=== PATIENT | female | born 1955 | race Caucasian/White ===

== ENCOUNTER → 2016-07-09 | Outpatient (CLI) | payer BC, OTHER ==
--- NOTE | 2016-07-09 09:02 | US ---
EXAMINATION TYPE: US carotid duplex BILAT DATE OF EXAM: 07/09/2016 8:48 AM COMPARISON: In pacs CLINICAL HISTORY: Bruit, frequent headaches, left sided weakness. EXAM MEASUREMENTS: RIGHT: Peak Systolic Velocity (PSV) cm/sec ----- Right CCA: 75.4 ----- Right ICA: 135.0 ----- Right ECA: 76.3 ICA/CCA ratio: 1.8 RIGHT: End Diastole cm/sec ----- Right CCA: 20.4 ----- Right ICA: 38.8 ----- Right ECA: 14.2 LEFT: Peak Systolic Velocity (PSV) cm/sec ----- Left CCA: 89.7 ----- Left ICA: 112.1 ----- Left ECA: 114.9 ICA/CCA ratio: 1.2 LEFT: End Diastole cm/sec ----- Left CCA: 25.9 ----- Left ICA: 40.3 ----- Left ECA: 12.1 VERTEBRALS (direction of flow): Right Vertebral: Antegrade Left Vertebral: Antegrade Findings: Bilateral intimal thickening, minimal plaque bilateral bulb Elevated velocities: right mid and distal ICA No significant stenosis Left neck: 2.4 x 0.9 x 1.6cm hypoechoic vascular area, probable lymph node IMPRESSION: 1. No significant hemodynamic stenosis 2. Mild bilateral plaque 3. 2.4 x 0.9 cm soft tissue nodule within the left neck is most likely related to a lymph node. Criteria for Assigning % of Stenosis / Diameter reduction (Estimation based on the indirect measurements of the internal carotid artery velocities (ICA PSV). 1. Normal (no stenosis)=ICA PSV < 125 cm/s: ratio < 2.0: ICA EDV<40 cm/s. 2. Less than 50% stenosis=ICA PSV < 125 cm/s: ratio < 2.0: ICA EDV<40 cm/s. 3. 50 to 69% stenosis=ICA PSV of 125 to 230 cm/s: ration 2.0 ? 4.0: ICA EDV 40-100 cm/s. 4. Greater than 70% stenosis to near occlusion= ICA PSV > 230 cm/s: ratio > 4.0: ICA EDV > 100 cm/s. 5. Near occlusion= ICA PSV velocities may be low or undetectable: variable ratio and ICA EDV. 6. Total occlusion=unable to detect flow.
== END | disposition home or self-care (01) ==
LOC: RADUSWWP 08:24
PROVIDERS: ATTEND Family Medicine
DX: I65.23 Occlusion and stenosis of bilateral carotid arteries (principal)
CPT/HCPCS: 93880

== ENCOUNTER → 2016-07-27 | Outpatient (CLI) | payer BC, OTHER ==
--- NOTE | 2016-07-27 15:34 | CT ---
EXAMINATION TYPE: CT abdomen pelvis w con DATE OF EXAM: 07/27/2016 2:59 PM COMPARISON: 07/06/2012 HISTORY: 60 year-old female periumbilical pain and history of small bowel obstructions. TECHNIQUE: Contiguous axial scanning of the abdomen and pelvis following administration of 100 ml Omn ipaque 300 IV contrast. Delayed images through the kidneys and coronal/sagittal reconstructions perf ormed. CT DLP: 324.3 mGycm Automated exposure control for dose reduction was used. FINDINGS: Heart is normal size without pericardial effusion. Lung bases are clear without pleural effusion. Con tinued circumferential wall thickening of the distal esophagus No focal liver lesion. Bile duct measures 8 mm, similar to the prior exam with normal distal tapering . Portal venous system is patent. Gallbladder, adrenal glands, spleen, and pancreas appear within normal limits. Similar cortical defec t medial upper pole right kidney suggests prior infectious or vascular insult. A subcentimeter hypode nsity lateral mid left kidney too small for accurate CT characterization, likely a cyst. Previously mentioned left adrenal gland mass now has the appearance of a posterior gastric fundal div erticulum as there is some air within and mucosal enhancement. No dilated small bowel, free fluid, or free air. Moderate atelectatic changes within the abdominal aorta with a fusiform dilatation of the infrarenal abdominal aorta up to 2.0 cm. No aneurysm. Oral contrast has progressed to the junction of the descending and sigmoid colon. There is some circumferential wall thickening involving the mid to distal sigmoid colon. No mesenteric or retroperitoneal lymphadenopathy seen. Tiny fatty umbilical hernia. The bladder is partially urine distended. Uterus surgically absent. Neither ovary is visualized. No a bnormal fluid collection in the pelvis or pelvic lymphadenopathy seen. Bones: Degenerative changes lower lumbar spine. No osseous destructive process. IMPRESSION: 1. CIRCUMFERENTIAL WALL THICKENING OF THE DISTAL ESOPHAGUS SUGGESTIVE OF ESOPHAGITIS. 2. SOME CIRCUMFERENTIAL WALL THICKENING OF THE MID TO DISTAL SIGMOID COLON MAY REPRESENT A MILD COLIT IS. CORRELATE WITH COLONOSCOPY IF NO ROUTINE SCREENING HAS BEEN PERFORMED.
== END | disposition home or self-care (01) ==
LOC: RADCTMAIN 14:34
PROVIDERS: ATTEND Family Medicine
DX: K22.8 Other specified diseases of esophagus (principal); K63.89 Other specified diseases of intestine; R10.33 Periumbilical pain
CPT/HCPCS: 74177; Q9967

== ENCOUNTER 2016-09-30 08:44 | Day surgery (SDC) | payer BC, OTHER ==
[2016-09-28 09:00] VITALS: BMI 20.5
[~2016-09-30 08:44] MED LIST: LACTATED RINGERS 1,000 ML IV SCH
[2016-09-30 09:54] VITALS: RESP 16; TEMP 97.7
[2016-09-30] MEDS ORDERED: LIDOCAINE 1% INJ 10MG/ML (20 ML MDV) ONE (09:59)
[2016-09-30] MEDS ORDERED: PROPOFOL 10 MG/ML 20 ML VIAL IV ONE (09:59)
--- NOTE | 2016-09-30 10:46 | P.PCN ---
Date of Procedure: 09/30/16 Procedure(s) Performed: Procedure: 1. Esophagogastroduodenoscopy and biopsy. 2. Colonoscopy and biopsy. Preoperative diagnosis: History of reflux and inflammatory bowel disease with dysphagia and loose stools. Postoperative diagnosis: 1. Mild gastritis with no obvious hiatal hernia, esophagitis or complicated reflux disease. 2. Normal colon and terminal ileum. 3. Multiple biopsies obtained from the duodenum, antrum, esophagus, terminal ileum and right colon. Preparation: HalfLytely prep. Sedation: Was provided by anesthesia. Brief clinical history: The patient is a 60-year-old female with history of colitis/Crohn's since 2002. She has been following up with Dr. Jamison who has performed her colonoscopies in the past. She had an upper endoscopy with me in March 2008 for intermittent dysphagia and that showed mild gastritis and the biopsies of the esophagus showed features suggestive of chronic esophagitis. The patient apparently has been doing well for many years on no medications for her IBD. She was evaluated earlier this month in our office, referred because of recurrence of loose stools and dysphagia. She was started on Pentasa prior to her referral and was also taking Protonix. I scheduled this evaluation to assess for complicated reflux disease and to assess for active inflammatory bowel disease. Procedure: With the patient on her left lateral decubitus position and after informed consent and adequate sedation, I passed the Olympus-GIF 160 video upper endoscope through the cricopharyngeus down the esophagus. The esophagus appeared healthy with no obvious erosions, ulcers, strictures or Lawson's esophagus. GE junction was around 40 cm from the incisors and there was no definite hiatal hernia. The esophagus was showing sustained contractions while I was advancing the endoscope raising, in my mind, the possibility of motility disorder. The stomach was then insufflated with air and inspected in detail including the retroflex view in the cardia. There was some mottling and erythema in the antrum but no ulcers or erosions. Pyloric channel, duodenal bulb, post bulbar area and descending duodenum appeared within normal limits. Because of her symptoms I obtained multiple biopsies from the duodenum, antrum and esophagus then the endoscope was withdrawn and I proceeded with the colonoscopy. Perianal area did not show any fissures or fistulas. There were no masses felt on digital rectal examination. The Olympus CFQ 160L video colonoscope was then inserted in the rectum in the usual fashion and advanced to the cecum. I intubated the ileocecal valve and examined the terminal ileum as well as. Terminal ileum and colon appeared healthy with no edema, erythema, friability, ulceration, exudation or spontaneous bleeding. No polyps or tumors were seen or any obvious diverticular disease or other pathology. I obtained biopsies from the terminal ileum and right colon then I retroflexed endoscope in the rectum before the endoscope was withdrawn. The patient tolerated the procedure well. Plan: The patient was reassured. Will await pathology results. I would consider further evaluation for possible motility disorder regarding her dysphagia symptoms. If the biopsies do not show any evidence of inflammatory bowel disease, we will treat her loose stools symptomatically or with anti- spasmodic and make further plans based on her course. I will keep you updated on her progress. She will follow-up with you as planned.
[2016-09-30 11:08] VITALS: BP 111/40; PULSE 60
== END 2016-09-30 11:12 | disposition home or self-care (01) ==
LOC: ORWHC2ENDO 08:44
DX: K21.0 Gastro-esophageal reflux disease with esophagitis (principal); K29.50 Unspecified chronic gastritis without bleeding; R19.7 Diarrhea, unspecified; K63.89 Other specified diseases of intestine; Z87.19 Personal history of other diseases of the digestive system; I10 Essential (primary) hypertension; Z79.899 Other long term (current) drug therapy; Z88.8 Allergy status to other drugs, medicaments and biological substances
CPT/HCPCS: 88305; 88342; 45380; 43239; J2001; J2704

== ENCOUNTER → 2016-10-19 | Outpatient (CLI) | payer BC, OTHER ==
--- NOTE | 2016-10-19 09:44 | MM ---
Reason for exam: additional evaluation requested from prior study. Last mammogram was performed 1 year ago. History: Patient is postmenopausal. Family history of breast cancer in maternal cousin at age 51, breast cancer in maternal cousin, and breast cancer in maternal aunt. Excisional biopsy of the right breast, October 2005. Taking estrogen for 33 years 3 months beginning at age 22. Physical Findings: Nurse did not find any significant physical abnormalities on exam. MG Diagnostic Mammo w CAD LENO Bilateral CC and MLO view(s) were taken. Prior study comparison: October 09, 2015, bilateral MG screening mammo w CAD. April 24, 2014, bilateral MG diagnostic mammo w CAD LEON. The breast tissue is heterogeneously dense. This may lower the sensitivity of mammography. Finding: There is a 12 x 10 mm equal density (isodense), circumscribed oval mass located 6 cm from the nipple in the upper outer quadrant of the right breast, cystic on ultrasound. New finding since October 09, 2015 and April 24, 2014. These results were verbally communicated with the patient and result sheet given to the patient on 10/19/16. ASSESSMENT: Benign, BI-RAD 2 RECOMMENDATION: Routine screening mammogram of both breasts in 1 year.
--- NOTE | 2016-10-19 09:45 | USB ---
Reason for exam: additional evaluation requested from prior study. History: Patient is postmenopausal. Family history of breast cancer in maternal cousin at age 51, breast cancer in maternal cousin, and breast cancer in maternal aunt. Excisional biopsy of the right breast, October 2005. Taking estrogen for 33 years 3 months beginning at age 22. US Breast RT Right breast ultrasound includes all four quadrants, the retroareolar region and axilla. Finding demonstrates a 1.1 x 0.9 x 1.6cm oval, cystic lesion at 10 o'clock, seen on previous, enlarged but benign. These results were verbally communicated with the patient and result sheet given to the patient on 10/19/16. ASSESSMENT: Benign, BI-RAD 2 RECOMMENDATION: Routine screening mammogram of both breasts in 1 year.
== END | disposition home or self-care (01) ==
LOC: RADMAMWWP 08:14
PROVIDERS: ATTEND Family Medicine
DX: R92.8 Other abnormal and inconclusive findings on diagnostic imaging of breast (principal)
CPT/HCPCS: 76641; G0204

== ENCOUNTER 2017-09-04 03:58 | Emergency (ER) | payer BC, OTHER ==
[2017-09-04] MEDS ORDERED: MORPHINE SULFATE 4 MG/ML SYRINGE IV STA (04:11)
[2017-09-04] MEDS ORDERED: ONDANSETRON 4 MG/2 ML VIAL IVP STA (04:11)
[2017-09-04] MEDS ORDERED: RX INFO: IV CONTRAST WAS GIVEN 1 EACH MISC MISCELLANE PRN (04:11)
[2017-09-04] MEDS ORDERED: SODIUM CHLORIDE 0.9% 1,000 ML IV STA (04:11)
[2017-09-04 04:13] VITALS: RESP 18
--- NOTE | 2017-09-04 04:18 | ED ---
General Adult HPI - General Chief complaint: Abdominal Pain Stated complaint: Abdominal Pain Time Seen by Provider: 09/04/17 04:00 Source: patient, RN notes reviewed Mode of arrival: ambulatory Limitations: no limitations - History of Present Illness Initial comments: This is a 61-year-old female who presents emergency Department with a past medical history significant for diverticulitis. Her doctor was treating her for diverticulitis with Cipro and Flagyl and is been ongoing for the past 10 days. Patient states few hours ago she woke up in excruciating abdominal pain and it seems to be more diffuse than it has been in the past. Patient states she's nauseated and vomited times one. Patient states she also been having some loose stool over the last 3 days. Patient denies any dysuria hematuria or urinary frequency. Patient denies any back pain. - Related Data Home Medications Medication Instructions Recorded Confirmed Enalapril [Vasotec] 10 mg PO DAILY 09/28/16 09/30/16 Estrogens, Conjugated [Premarin] 1.25 mg PO DAILY 09/28/16 09/30/16 Levocetirizine Dihydrochloride 5 mg PO DAILY 09/28/16 09/30/16 [Xyzal] Mesalamine [Pentasa] 500 mg PO TID 09/28/16 09/30/16 Metoprolol Tartrate [Lopressor] 12.5 mg PO QAM 09/28/16 09/30/16 Mometasone/Formoterol [Dulera 200 2 puff INHALATION BID PRN 09/28/16 09/30/16 Mcg/5 Mcg Inhaler] Pantoprazole Sodium 40 mg PO DAILY 09/28/16 09/30/16 Allergies Allergy/AdvReac Type Severity Reaction Status Date / Time [id number]-Ard Reductase Allergy muscle pain Verified 09/04/17 04:13 Inhibitor Review of Systems ROS Statement: Those systems with pertinent positive or pertinent negative responses have been documented in the HPI. ROS Other: All systems not noted in ROS Statement are negative. Past Medical History Past Medical History: Coronary Artery Disease (CAD), Chest Pain / Angina, GERD/ Reflux, Hyperlipidemia, Myocardial Infarction (PR), Osteoarthritis (OA) Additional Past Medical History / Comment(s): hx migraines, hiatal hernia , crohns, diverticulits, rash on chest that comes and goes, Last Myocardial Infarction Date:: 08/2004 History of Any Multi-Drug Resistant Organisms: None Reported Past Surgical History: Appendectomy, Heart Catheterization, Hernia Repair, Hysterectomy Additional Past Surgical History / Comment(s): oophorectomy, bowel obstruction surgery/adhesions x 2, lapropscopy, colonscopy, rt wrist capal tunnel Past Anesthesia/Blood Transfusion Reactions: Blood Transfusion Reaction Additional Past Anesthesia/Blood Transfusion Reaction / Comment(s): high fever with blood transfusion Past Psychological History: No Psychological Hx Reported Smoking Status: Current every day smoker Past Alcohol Use History: None Reported Past Drug Use History: None Reported - Past Family History Father Family Medical History: Cancer Sister(s) Family Medical History: Cancer General Exam - General Exam Comments Initial Comments: GENERAL: Patient is well-developed and well-nourished. Patient is nontoxic and well- hydrated and is in moderate distress. ENT: Neck is soft and supple. No significant lymphadenopathy is noted. Oropharynx is clear. Moist mucous membranes. Neck has full range of motion without eliciting any pain. EYES: The sclera were anicteric and conjunctiva were pink and moist. Extraocular movements were intact and pupils were equal round and reactive to light. Eyelids were unremarkable. PULMONARY: Unlabored respirations. Good breath sounds bilaterally. No audible rales rhonchi or wheezing was noted. CARDIOVASCULAR: There is a regular rate and rhythm without any murmurs gallops or rubs. ABDOMEN: Patient has diffuse abdominal tenderness with rebound more so in the midsection then on the flanks SKIN: Skin is clear with no lesions or rashes and otherwise unremarkable. NEUROLOGIC: Patient is alert and oriented x3. Cranial nerves II through XII are grossly intact. Motor and sensory are also intact. Normal speech, volume and content. Symmetrical smile. MUSCULOSKELETAL: Normal extremities with adequate strength and full range of motion. LYMPHATICS: No significant lymphadenopathy is noted PSYCHIATRIC: Normal psychiatric evaluation. Limitations: no limitations Course Vital Signs 09/04/17 09/04/17 09/04/17 04:07 05:02 06:07 Temperature 97.2 F L 97.5 F L Pulse Rate 69 69 72 Respiratory 18 18 18 Rate Blood Pressure 196/80 158/68 171/65 O2 Sat by Pulse 98 99 100 Oximetry Medical Decision Making - Medical Decision Making CAT scan showed aortitis. I spoke with Dr. Ireland he stated that he wanted the patient transferred [facility]. I spoke with [facility] they accept the transfer and will have vascular surgery see the patient. I started the patient on Zosyn. - Lab Data Result diagrams: 09/04/17 04:30 09/04/17 04:30 Lab Results 09/04/17 09/04/17 09/04/17 Range/Units 04:30 04:30 04:30 WBC 12.2 H (3.8-10.6) k/uL RBC 5.15 (3.80-5.40) m/uL Hgb 15.3 (11.4-16.0) gm/dL Hct 46.3 H (34.0-46.0) % MCV 89.9 (80.0-100.0) fL MCH 29.7 (25.0-35.0) pg MCHC 33.0 (31.0-37.0) g/dL RDW 13.0 (11.5-15.5) % Plt Count 185 (150-450) k/uL Neutrophils % 77 % Lymphocytes % 16 % Monocytes % 4 % Eosinophils % 2 % Basophils % 0 % Neutrophils # 9.3 H (1.3-7.7) k/uL Lymphocytes # 2.0 (1.0-4.8) k/uL Monocytes # 0.4 (0-1.0) k/uL Eosinophils # 0.2 (0-0.7) k/uL Basophils # 0.1 (0-0.2) k/uL Sodium 141 (137-145) mmol/L Potassium 4.6 (3.5-5.1) mmol/L Chloride 107 (98-107) mmol/L Carbon Dioxide 24 (22-30) mmol/L Anion Gap 10 mmol/L BUN 20 H (7-17) mg/dL Creatinine 0.74 (0.52-1.04) mg/dL Est GFR (MDRD) Af Amer >60 (>60 ml/min/1.73 sqM) Est GFR (MDRD) Non-Af >60 (>60 ml/min/1.73 sqM) Glucose 107 H (74-99) mg/dL Plasma Lactic Acid Steve 1.5 (0.7-2.0) mmol/L Calcium 9.9 (8.4-10.2) mg/dL Total Bilirubin 0.4 (0.2-1.3) mg/dL AST 20 (14-36) U/L ALT 16 (9-52) U/L Alkaline Phosphatase 59 (38-126) U/L Total Protein 6.8 (6.3-8.2) g/dL Albumin 3.9 (3.5-5.0) g/dL Amylase 63 (30-110) U/L Lipase 195 (23-300) U/L Urine Color Urine Appearance (Clear) Urine pH (5.0-8.0) Ur Specific [place] (1.001-1.035) Urine Protein (Negative) Urine Glucose (UA) (Negative) Urine Ketones (Negative) Urine Blood (Negative) Urine Nitrite (Negative) Urine Bilirubin (Negative) Urine Urobilinogen (<2.0) mg/dL Ur Leukocyte Esterase (Negative) 09/04/17 Range/Units 05:09 WBC (3.8-10.6) k/uL RBC (3.80-5.40) m/uL Hgb (11.4-16.0) gm/dL Hct (34.0-46.0) % MCV (80.0-100.0) fL MCH (25.0-35.0) pg MCHC (31.0-37.0) g/dL RDW (11.5-15.5) % Plt Count (150-450) k/uL Neutrophils % % Lymphocytes % % Monocytes % % Eosinophils % % Basophils % % Neutrophils # (1.3-7.7) k/uL Lymphocytes # (1.0-4.8) k/uL Monocytes # (0-1.0) k/uL Eosinophils # (0-0.7) k/uL Basophils # (0-0.2) k/uL Sodium (137-145) mmol/L Potassium (3.5-5.1) mmol/L Chloride (98-107) mmol/L Carbon Dioxide (22-30) mmol/L Anion Gap mmol/L BUN (7-17) mg/dL Creatinine (0.52-1.04) mg/dL Est GFR (MDRD) Af Amer (>60 ml/min/1.73 sqM) Est GFR (MDRD) Non-Af (>60 ml/min/1.73 sqM) Glucose (74-99) mg/dL Plasma Lactic Acid Steve (0.7-2.0) mmol/L Calcium (8.4-10.2) mg/dL Total Bilirubin (0.2-1.3) mg/dL AST (14-36) U/L ALT (9-52) U/L Alkaline Phosphatase (38-126) U/L Total Protein (6.3-8.2) g/dL Albumin (3.5-5.0) g/dL Amylase (30-110) U/L Lipase (23-300) U/L Urine Color Light Yellow Urine Appearance Clear (Clear) Urine pH 7.5 (5.0-8.0) Ur Specific [place] 1.030 (1.001-1.035) Urine Protein Negative (Negative) Urine Glucose (UA) Negative (Negative) Urine Ketones Negative (Negative) Urine Blood Negative (Negative) Urine Nitrite Negative (Negative) Urine Bilirubin Negative (Negative) Urine Urobilinogen <2.0 (<2.0) mg/dL Ur Leukocyte Esterase Negative (Negative) Critical Care Time Critical Care Time: Yes Total Critical Care Time: 35 Disposition Clinical Impression: Aortitis Disposition: OTHER INSTITUTION NOT DEFINED Referrals: Olinda Eric DO [Primary Care Provider] - 1-2 days Time of Disposition: 06:13 - Out of Hospital Transfer - Req. Specs Out of Hospital Transfer - Requested Specifics: Other Emergency Center ([facility])
[2017-09-04 04:49] LABS: Basophils # (A) 0.1 k/uL (0-0.2); Basophils % (A) 0 %; Eosinophils # (A) 0.2 k/uL (0-0.7); Eosinophils % (A) 2 %; HCT 46.3 % (34.0-46.0); HGB 15.3 gm/dL (11.4-16.0); Lymphocytes % (A) 16 %; MCH 29.7 pg (25.0-35.0); MCV 89.9 fL (80.0-100.0); Monocytes # (A) 0.4 k/uL (0-1.0); Monocytes % (A) 4 %; Neutrophils # (A) 9.3 k/uL (1.3-7.7); Neutrophils % (A) 77 %; Platelet Count 185 k/uL (150-450); RBC 5.15 m/uL (3.80-5.40); WBC 12.2 k/uL (3.8-10.6)
[2017-09-04 05:02] LABS: ALT 16 U/L (9-52); AST 20 U/L (14-36); Albumin 3.9 g/dL (3.5-5.0); Alkaline Phosphatase 59 U/L (38-126); Amylase 63 U/L (30-110); Anion Gap 10 mmol/L; Blood Urea Nitrogen 20 mg/dL (7-17); Calcium 9.9 mg/dL (8.4-10.2); Carbon Dioxide 24 mmol/L (22-30); Chloride 107 mmol/L (98-107); Glucose 107 mg/dL (74-99); Lipase 195 U/L (23-300); Potassium 4.6 mmol/L (3.5-5.1); Sodium 141 mmol/L (137-145); Total Bilirubin 0.4 mg/dL (0.2-1.3); Total Protein 6.8 g/dL (6.3-8.2)
[2017-09-04 05:17] LABS: Appearance,Urine Clear (Clear); Bilirubin,Urine Negative (Negative); Blood,Urine Negative (Negative); Color,Urine Light Yellow; Glucose,Urine (UA) Negative (Negative); Ketones,Urine Negative (Negative); Leukocyte Esterase,Urine Negative (Negative); PH, Urine 7.5 (5.0-8.0); Protein,Urine Negative (Negative); Urobilinogen,Urine <2.0 mg/dL (<2.0)
--- NOTE | 2017-09-04 05:37 | CT ---
EXAM: CT Abdomen and Pelvis With Intravenous Contrast CLINICAL HISTORY: ITS.REASON CT Reason: abdominal pain TECHNIQUE: Axial computed tomography images of the abdomen and pelvis with intravenous contrast. DLP is 353.4 mGy-cm. This CT exam was performed using one or more of the following dose reduction techniques: automated exposure control, adjustment of the mA and/or kV according to patient size, and/or use of iterative reconstruction technique. COMPARISON: CT abdomen pelvis dated 07/27/2016. FINDINGS: Lower thorax: No acute findings. ABDOMEN: Liver: Unremarkable. No mass. Gallbladder and bile ducts: Unremarkable. No calcified stones. No ductal dilation. Pancreas: Unremarkable. No evidence of mass. No ductal dilation. Spleen: Unremarkable. No splenomegaly. Adrenals: Unremarkable. No mass. Kidneys and ureters: Unchanged small cortical scar in the upper pole of the right kidney. No hydronephrosis. Stomach and bowel: Wall thickening and inflammatory changes adjacent to the distal ileum most compatible with infectious or inflammatory disease. Reidentified small diverticula arising from the gastric fundus. Mild diverticulosis without evidence of diverticulitis. No obstruction. Appendix: Nonvisualization of the appendix. No pericecal inflammatory changes. PELVIS: Bladder: Unremarkable. No evidence of mass. Reproductive: Unremarkable as visualized. ABDOMEN and PELVIS: Intraperitoneal space: Mild simple appearing free fluid in the pelvis is nonspecific. No free air. Bones/joints: No acute fracture. Soft tissues: Unremarkable. Vasculature: New wall thickening and minimal adjacent fat stranding adjacent to the abdominal aorta most compatible with aortitis. Slightly worsened mild dilatation of the abdominal aorta, currently measuring up to 19 mm, previously up to 16 mm. Severe focal stenosis of the mid abdominal aorta and a moderate stenosis at the origin of the left common iliac artery. Mild wall thickening of the proximal left common iliac artery with mild ectasia measuring up to 10 mm. Severe vascular calcification of the aorta and iliac arteries. Lymph nodes: Unremarkable. No enlarged lymph nodes. IMPRESSION: 1. New wall thickening and minimal adjacent fat stranding adjacent to the abdominal aorta and proximal left common iliac artery most compatible with aortitis. 2. Wall thickening and inflammatory changes adjacent to the distal ileum most compatible with infectious or inflammatory disease. Mild simple appearing free fluid in the pelvis is likely reactive to this. 3. Worsened mild dilatation of the abdominal aorta. 4. Worsened severe stenosis of the mid abdominal aorta.
[2017-09-04] MEDS ORDERED: PIPERACILLIN-TAZOBACTAM 3.375 GM in DEXTROSE/WATER 1 50ML.BAG IVPB STA (05:50)
[2017-09-04 06:10] VITALS: BP 171/65; PULSE 72; TEMP 97.5
== END 2017-09-04 06:43 | disposition other institution (70) ==
LOC: EC 03:58
DX: I77.6 Arteritis, unspecified (principal); I25.119 Atherosclerotic heart disease of native coronary artery with unspecified angina pectoris; K21.9 Gastro-esophageal reflux disease without esophagitis; I25.2 Old myocardial infarction; F17.200 Nicotine dependence, unspecified, uncomplicated; Z79.899 Other long term (current) drug therapy; Z88.8 Allergy status to other drugs, medicaments and biological substances; Z90.49 Acquired absence of other specified parts of digestive tract; Z90.710 Acquired absence of both cervix and uterus
CPT/HCPCS: 36415; 80053; 82150; 83605; 83690; 85025; 81003; 87040; 74177; 99285; 96365; 96375 ×2; 96361 ×2; J2270; J2405; J2543; Q9967

== ENCOUNTER → 2017-10-28 | Outpatient (CLI) | payer BC, OTHER ==
--- NOTE | 2017-10-28 11:31 | US ---
EXAMINATION TYPE: US abdomen limited DATE OF EXAM: 10/28/2017 COMPARISON: CT abdomen and pelvis September 04, 2017. MRI lumbar spine May 06, 2017 CLINICAL HISTORY: R10.811 RUQ ABD TENDERNESS. Tenderness, Patients states having an MRI at and [facility] wed gall stone on Tuesday. EXAM MEASUREMENTS: Liver Length: 15.0 cm Gallbladder Wall: 0.3 cm CBD: 0.7 cm CHD: 0.6 cm Right Kidney: 10.3 x 4.9 x 4.0 cm Limited exam due to overlying bowel gas Pancreas: Tail obscured by overlying bowel gas. Appears heterogenous. Liver: wnl Gallbladder: Echogenic lesion seen with slight shadow seen LLD = 2.0 x 1.8 x 1.3 cm. Wall - 3.0 mm Evidence for sonographic Connelly's sign: neg CBD: Upper limits of normal CHD: wnl Right Kidney: wnl Visualized pancreas is heterogeneous without worrisome mass or ductal dilatation. Within the gallblad letha there is 2.0 x 1.3 x 1.8 cm oval heterogeneous hypoechoic oval-shaped lesion, corresponding abnor mality is not seen on our prior CT or MRI. Lesion appears nonmobile and nonshadowing. IMPRESSION: No shadowing mobile gallstones. A 2 cm oval nonshadowing nonmobile focus favors polyp. In lesion of this size, surgical referral for cholecystectomy should be considered as carcinoma is in d ifferential.
== END ==
LOC: RADUSWWP 10:42
PROVIDERS: ATTEND Family Medicine
DX: K82.8 Other specified diseases of gallbladder (principal)
CPT/HCPCS: 76705

== ENCOUNTER 2018-09-06 07:22 | Day surgery (SDC) | payer BC, OTHER ==
[2018-08-31 12:13] VITALS: BMI 22.3
[~2018-09-06 07:22] MED LIST changes: +DEXAMETHASONE SOD PHOSPHATE 10 MG/ML 1 ML VIAL IV ONE; +HEPARIN SODIUM,PORCINE 5,000 UNIT/ML 1 ML VIAL SQ ONE; +MIDAZOLAM (PF) 2 MG/2 ML VIAL IV PRN; +ONDANSETRON 4 MG/2 ML VIAL IVP ONE; +SCOPOLAMINE 1.5MG/72HR PATCH TRANSDERM ONE; +ceFAZolin IN SWFI 2 GM/20 ML SYRINGE IVP ONE
[2018-09-06] MEDS ORDERED: LACTATED RINGERS 1,000 ML IV ONE (08:01)
[2018-09-06] MEDS ORDERED: LIDOCAINE 1% 20 ML VIAL (10MG/ML) FOR IV START INTRADERMA ONE (08:02)
[2018-09-06] MEDS ORDERED: SUCCINYLCHOLINE CHLORIDE 100 MG/5 ML SYR IV ONE (08:27)
[2018-09-06] MEDS ORDERED: NEOSTIGMINE 1 MG/ML 10 ML VIAL ONE (08:27)
[2018-09-06] MEDS ORDERED: MIDAZOLAM 2 MG/2 ML VIAL ONE (08:27)
[2018-09-06] MEDS ORDERED: fentaNYL (PF) 50 MCG/ML 2 ML AMP ONE (08:27)
[2018-09-06] MEDS ORDERED: GLYCOPYRROLATE 0.2 MG/ML 2 ML VIAL ONE (08:27)
[2018-09-06] MEDS ORDERED: LIDOCAINE 1% INJ 10MG/ML (20 ML MDV) ONE (08:27)
[2018-09-06] MEDS ORDERED: KETOROLAC 30 MG/ML 1 ML VIAL ONE (08:27)
[2018-09-06] MEDS ORDERED: ePHEDrine SULFATE/0.9% NACL/PF 50 MG/5 ML SYRINGE IV ONE (08:27)
[2018-09-06] MEDS ORDERED: ROCURONIUM BROMIDE 10 MG/ML 10 ML VIAL IV ONE (08:27)
[2018-09-06] MEDS ORDERED: PROPOFOL 10 MG/ML 20 ML VIAL IV ONE (08:27)
--- NOTE | 2018-09-06 08:43 | P.GSHP ---
History of Present Illness H&P Date: 09/06/18 Chief Complaint: Right upper quadrant pain This is a 62-year-old female who presents today for laparoscopic cholecystectomy. Patient's had complaints of her quadrant pain. Her recent ultrasound shows a large polyp in the gallbladder. Past Medical History Past Medical History: Coronary Artery Disease (CAD), Chest Pain / Angina, COPD, GERD/Reflux, Hyperlipidemia, Myocardial Infarction (ID), Osteoarthritis (OA) Additional Past Medical History / Comment(s): hx migraines, hiatal hernia , crohns, diverticulits, environmental allergies, states she has aortitis., cysts on kidney, gall stones, nausea and gall bladder pain. Last Myocardial Infarction Date:: 08/2004 History of Any Multi-Drug Resistant Organisms: None Reported Past Surgical History: Appendectomy, Heart Catheterization, Hernia Repair, Hysterectomy Additional Past Surgical History / Comment(s): oophorectomy, bowel obstruction surgery/adhesions x 2, laparoscopy, colonscopy, rt wrist capal tunnel Past Anesthesia/Blood Transfusion Reactions: No Reported Reaction, Blood Transfusion Reaction Additional Past Anesthesia/Blood Transfusion Reaction / Comment(s): high fever with blood transfusion Past Psychological History: No Psychological Hx Reported Smoking Status: Current every day smoker Past Alcohol Use History: None Reported Additional Past Alcohol Use History / Comment(s): hx of smoking 1/2 PPD for 40 yrs- currently smoking less than 1/2ppd Past Drug Use History: None Reported - Past Family History Father Family Medical History: Cancer Additional Family Medical History / Comment(s): kidney cancer Sister(s) Family Medical History: Cancer Additional Family Medical History / Comment(s): throat cancer Medications and Allergies Home Medications Medication Instructions Recorded Confirmed Type Enalapril [Vasotec] 10 mg PO HS 09/28/16 08/31/18 History Estrogens, Conjugated [Premarin] 1.25 mg PO DAILY 09/28/16 08/31/18 History Levocetirizine Dihydrochloride 5 mg PO DAILY 09/28/16 08/31/18 History [Xyzal] Pantoprazole Sodium 40 mg PO DAILY 09/28/16 08/31/18 History Albuterol Inhaler [Ventolin Hfa 1 - 2 puff INHALATION RT-Q6H PRN 08/31/18 History Inhaler] Atorvastatin [Lipitor] 40 mg PO HS 08/31/18 08/31/18 History Calcium With Vit D 1 tab PO DAILY 08/31/18 08/31/18 History Carvedilol [Coreg] 6.25 mg PO BID 08/31/18 08/31/18 History Allergies Allergy/AdvReac Type Severity Reaction Status Date / Time No Known Allergies Allergy Verified 08/31/18 11:58 Surgical - Exam Vital Signs Temp Pulse Resp BP Pulse Ox 97.8 F 56 L 18 142/65 99 09/06/18 07:47 09/06/18 07:47 09/06/18 07:47 09/06/18 07:47 09/06/18 07:47 - General well developed, well nourished, no distress - Eyes PERRL - ENT normal pinna - Neck no masses - Respiratory normal expansion - Cardiovascular Rhythm: regular - Abdomen Mild right upper quadrant pain Abdomen: soft Assessment and Plan Assessment: Right upper quadrant pain Gallbladder polyp/stone We'll perform laparoscopic cholecystectomy.
[2018-09-06] MEDS ORDERED: BUPIVACAINE-EPI 0.5%-1:200,000 10 ML VIAL SQ ONE (08:50)
[2018-09-06 09:15] VITALS: TEMP 97
--- NOTE | 2018-09-06 09:25 | P.OP ---
Date of Procedure: 09/06/18 Preoperative Diagnosis: Cholecystitis Postoperative Diagnosis: Cholecystitis Procedure(s) Performed: Laparoscopic cholecystectomy Anesthesia: LONG Surgeon: Robb Lassiter Estimated Blood Loss (ml): 5 Pathology: other (Gallbladder) Condition: stable Disposition: PACU Description of Procedure: The patient was placed on the operating table. The patient received a general endotracheal tube anesthesia. The patients abdomen was prepped and draped in the usual sterile fashion. Through an infraumbilical stab incision, the fascia of the anterior abdominal wall was grasped with a pair of Kochers and then the Veress needle was placed in the peritoneal cavity. Position of the Veress needle was confirmed with positive drop test. The abdomen was then insufflated. After adequate insufflation, the 10 mm trocar was placed in the peritoneal cavity. Following this the laparoscope was placed in the peritoneal cavity. The patient was placed in the head-up, right side up position and then a 5 mm trocar was placed in the right lateral and right subcostal position under direct visualization. A 8 mm trocar was placed in the epigastric position. The gallbladder was grasped in the fundus and infundibulum. Traction on the gallbladder was placed in the lateral and the cephalad positions. The triangle of Calot was visualized.. The cystic duct was bluntly dissected until the union of the cystic duct and common bile duct was seen. The cystic duct was then divided and sealed with the Harmonic scissors. A PDS Endoloop was then placed throughout the cystic duct stump. The cystic artery divided and sealed with the Harmonic scissors. The gallbladder was then removed from the liver bed using Harmonic scissors. The gallbladder was then extracted through the epigastric port site. Operative field was checked for any bleeding spots and Harmonic scissors was used to coagulate the liver bed. The abdomen was irrigated. The trocars were removed. The skin was closed using interrupted 3-0 Vicryl suture. Dermabond dressing were applied. The patient tolerated the procedure well.
[2018-09-06] MEDS: HYDROmorphone 0.5 MG/0.5 ML SYRINGE IVP PRN ×2 (09:30→09:40)
[2018-09-06] MEDS ORDERED: HYDROcodone/APAP 7.5-325MG 1 EACH TAB PO ONE (10:47)
[2018-09-06 11:06] VITALS: BP 142/58; PULSE 61; RESP 16
== END 2018-09-06 11:21 | disposition home or self-care (01) ==
LOC: OR 07:22
PROVIDERS: ATTEND Surgery
DX: K81.1 Chronic cholecystitis (principal); I25.10 Atherosclerotic heart disease of native coronary artery without angina pectoris; J44.9 Chronic obstructive pulmonary disease, unspecified; K21.9 Gastro-esophageal reflux disease without esophagitis; E78.5 Hyperlipidemia, unspecified; I25.2 Old myocardial infarction; I77.6 Arteritis, unspecified; Q61.9 Cystic kidney disease, unspecified; F17.210 Nicotine dependence, cigarettes, uncomplicated; K50.90 Crohn's disease, unspecified, without complications; M19.90 Unspecified osteoarthritis, unspecified site; Z80.51 Family history of malignant neoplasm of kidney; Z79.890 Hormone replacement therapy; Z79.899 Other long term (current) drug therapy
CPT/HCPCS: 88304; 47562; J2250; J1644; J1100; J2710; J2405; J2001; J3010; J1885; J0330; J2704; J1170; J0690

== ENCOUNTER → 2020-03-11 | Outpatient (CLI) | payer BC ==
--- NOTE | 2020-03-11 13:17 | BD ---
EXAMINATION TYPE: Axial Bone Density DATE OF EXAM: 03/11/2020 COMPARISON: DEXA bone scan March 09, 2018. CLINICAL HISTORY: Postmenopausal female. Height: 63.5 Weight: 123.4 FRAX RISK QUESTIONS: Alcohol (3 or more units per day): no Family History (Parent hip fracture): no Glucocorticoids (More than 3mos): no (Ex: prednisone, prednisolone, methylprednisolone, dexamethasone, and hydrocortisone). History of Fracture in Adulthood: no Secondary Osteoporosis: 1. Type 1 Diabetes: no 2. Hyperthyroidism: no 3. Menopause before 45: yes 4. Malnutrition: no 5. Chronic liver disease: no Rheumatoid Arthritis: no Current Tobacco Use: yes RISK FACTORS HISTORY OF: Family History of Osteoporosis: no Active: yes Diet low in dairy products/other sources of calcium: no Postmenopausal woman: age 22 hysterectomy Take estrogen and/or progesterone medications: premarin How long: since age 22 MEDICATIONS: carvedilol, celia, enalapril, atorvastatin, acid reflux meds, allergy meds Additional History: EXAM MEASUREMENTS: Bone mineral densitometry was performed using the Ntractive System. Bone mineral density as measured about the Lumbar spine is: ----- L1-L4(G/cm2): 1.178 T Score Values are as follows: ----- L2: -0.7 ----- L3: 0.2 ----- L4: 0.6 ----- L1-L4: 0.0 Bone mineral density has: increased 2.1 % since study of: 03.09.2018 Bone mineral density about the R hip (g/cm2): 0.908 Bone mineral density about the L hip (g/cm2): 0.931 T Score values are as follows: -----R Neck: -0.8 -----L Neck: -1.1 -----R Total: -0.2 -----L Total: -0.5 Bone mineral density has: decreased -1.2 % since study of: 03.09.2018 IMPRESSION: Osteopenia (T Score between -2.5 and -1) at femoral neck level in the left hip. There is slightly increased risk of fracture and the patient may be considered for treatment. Re-Screen 2-5 years. NOTE: T-SCORE=SD OF THE YOUNG ADULT MEAN.
--- NOTE | 2020-03-12 13:09 | MM ---
Reason for exam: screening (asymptomatic). Last mammogram was performed 2 years ago. History: Patient is postmenopausal. Family history of breast cancer in maternal cousin at age 51, breast cancer in maternal cousin, and breast cancer in maternal aunt. Excisional biopsy of the right breast, October 2005. Taking estrogen for 33 years 3 months beginning at age 22. Physical Findings: A clinical breast exam by your physician is recommended on an annual basis and results should be correlated with mammographic findings. MG Screening Mammo w CAD Bilateral CC and MLO view(s) were taken. Prior study comparison: March 09, 2018, bilateral MG screening mammo w CAD. October 19, 2016, bilateral MG diagnostic mammo w CAD LEON. The breast tissue is extremely dense which could obscure a lesion on mammography. Benign calcifications. There is chronic nodularity in the right breast. No significant changes when compared with prior studies. ASSESSMENT: Benign, BI-RAD 2 RECOMMENDATION: Routine screening mammogram of both breasts in 1 year.
== END | disposition home or self-care (01) ==
LOC: RADMAMWWP 09:30
PROVIDERS: ATTEND Family Medicine
DX: Z12.31 Encounter for screening mammogram for malignant neoplasm of breast (principal); M85.852 Other specified disorders of bone density and structure, left thigh; Z78.0 Asymptomatic menopausal state
CPT/HCPCS: 77067; 77080

== ENCOUNTER 2022-01-10 10:05 | Inpatient (IN) | payer BC, MEDICARE ==
[2022-01-10] MEDS ORDERED: ASPIRIN 81 MG PO STA (10:24)
[2022-01-10] MEDS ORDERED: NITROGLYCERIN OINT 1 INCH/GM PACKET TOPICAL STA (10:24)
--- NOTE | 2022-01-10 10:27 | ED ---
General Adult HPI - General Chief complaint: Chest Pain Stated complaint: chest pain x2 days Time Seen by Provider: 01/10/22 10:13 Source: patient, RN notes reviewed Mode of arrival: ambulatory Limitations: no limitations - History of Present Illness Initial comments: Patient is a pleasant 66-year-old female presenting to the emergency Department with chest discomfort. Symptoms have been present for the past 2-3 days. Discomfort was worse yesterday. Discomfort is fairly mild at this time. Discomfort feels like pressure and there has been some radiation towards the back and arm. Patient did have nausea yesterday with dry heaves. Patient has b een a little bit sweaty. No dyspnea. Patient states symptoms do worsen with exertion. Patient does have history of similar symptoms previously associated with heart attack. - Related Data Home Medications Medication Instructions Recorded Confirmed Enalapril [Vasotec] 10 mg PO HS 09/28/16 08/31/18 Estrogens, Conjugated [Premarin] 1.25 mg PO DAILY 09/28/16 08/31/18 Levocetirizine Dihydrochloride 5 mg PO DAILY 09/28/16 08/31/18 [Xyzal] Pantoprazole Sodium 40 mg PO DAILY 09/28/16 08/31/18 Albuterol Inhaler [Ventolin Hfa 1 - 2 puff INHALATION RT-Q6H PRN 08/31/18 08/31/18 Inhaler] Atorvastatin [Lipitor] 40 mg PO HS 08/31/18 08/31/18 Calcium With Vit D 1 tab PO DAILY 08/31/18 08/31/18 carvediloL [Coreg] 6.25 mg PO BID 08/31/18 08/31/18 Previous Rx's Medication Instructions Recorded Docusate [Colace] 100 mg PO BID #20 capsule 09/06/18 HYDROcodone/APAP 7.5-325MG [[place] 1 tab PO Q6HR PRN 3 Days #10 tab 09/06/18 7.5-325] Allergies Allergy/AdvReac Type Severity Reaction Status Date / Time No Known Allergies Allergy Verified 01/10/22 10:09 Review of Systems ROS Statement: Those systems with pertinent positive or pertinent negative responses have been documented in the HPI. ROS Other: All systems not noted in ROS Statement are negative. Constitutional: Denies: fever Eyes: Denies: eye pain ENT: Denies: ear pain Respiratory: Denies: cough, dyspnea Cardiovascular: Reports: chest pain Endocrine: Denies: fatigue Gastrointestinal: Reports: nausea. Denies: abdominal pain Genitourinary: Denies: urgency Musculoskeletal: Denies: arthralgia Skin: Denies: rash Past Medical History Past Medical History: Coronary Artery Disease (CAD), Chest Pain / Angina, COPD, GERD/Reflux, Hyperlipidemia, Myocardial Infarction ([place]), Osteoarthritis (OA) Additional Past Medical History / Comment(s): hx migraines, hiatal hernia ,crohns, diverticulits, environmental allergies, states she has aortitis., cysts on kidney, gall stones, nausea and gall bladder pain. Last Myocardial Infarction Date:: 08/2004 History of Any Multi-Drug Resistant Organisms: None Reported Past Surgical History: Appendectomy, Heart Catheterization, Hernia Repair, Hysterectomy Additional Past Surgical History / Comment(s): oophorectomy, bowel obstruction surgery/adhesions x 2, laparoscopy, colonscopy, rt wrist capal tunnel Past Anesthesia/Blood Transfusion Reactions: No Reported Reaction, Blood Transfusion Reaction Additional Past Anesthesia/Blood Transfusion Reaction / Comment(s): high fever with blood transfusion Past Psychological History: No Psychological Hx Reported Smoking Status: Current every day smoker Past Alcohol Use History: None Reported Past Drug Use History: None Reported - Past Family History Father Family Medical History: Cancer Additional Family Medical History / Comment(s): kidney cancer Sister(s) Family Medical History: Cancer Additional Family Medical History / Comment(s): throat cancer General Exam Limitations: no limitations General appearance: alert, in no apparent distress Head exam: Present: normocephalic Eye exam: Present: normal appearance Neck exam: Present: normal inspection Respiratory exam: Present: normal lung sounds bilaterally. Absent: chest wall tenderness Cardiovascular Exam: Present: regular rate, normal rhythm Expanded Peripheral pulses: 2+: Radial (R), Radial (L), Posterior Tibialis (R), Posterior Tibialis (L) GI/Abdominal exam: Present: soft. Absent: tenderness Extremities exam: Present: normal inspection. Absent: pedal edema, calf tenderness Neurological exam: Present: alert Psychiatric exam: Present: normal affect, normal mood Skin exam: Present: normal color Course Vital Signs 01/10/22 01/10/22 10:06 11:15 Temperature 97.3 F L Pulse Rate 71 50 L Respiratory 20 18 Rate Blood Pressure 192/75 171/72 O2 Sat by Pulse 97 96 Oximetry EKG Findings - EKG Comments: EKG Findings:: Size pericardial 58. LA 169. QRS 90. QT 475. QTC 472. Normal axis. Normal QRS. T wave inversion V2 and aVL. Prominent inferior Q waves. Medical Decision Making - Medical Decision Making Patient reevaluated. Patient and family updated. Patient was started on heparin. [facility] has been paged for admission covering Dr. Myers. Cardiology will also be placed on consult. Discomfort remains very mild at this time, 07/13 - Lab Data Result diagrams: 01/10/22 10:33 01/10/22 10:33 Lab Results 01/10/22 01/10/22 01/10/22 Range/Units 10:33 10:33 10:33 WBC 8.1 (3.8-10.6) k/uL RBC 4.66 (3.80-5.40) m/uL Hgb 14.3 (11.4-16.0) gm/dL Hct 42.7 (34.0-46.0) % MCV 91.6 (80.0-100.0) fL MCH 30.6 (25.0-35.0) pg MCHC 33.4 (31.0-37.0) g/dL RDW 12.8 (11.5-15.5) % Plt Count 153 (150-450) k/uL MPV 8.7 Neutrophils % 66 % Lymphocytes % 24 % Monocytes % 4 % Eosinophils % 3 % Basophils % 1 % Neutrophils # 5.4 (1.3-7.7) k/uL Lymphocytes # 2.0 (1.0-4.8) k/uL Monocytes # 0.3 (0-1.0) k/uL Eosinophils # 0.2 (0-0.7) k/uL Basophils # 0.1 (0-0.2) k/uL PT 10.1 (9.0-12.0) sec INR 0.9 (<1.2) APTT 22.7 (22.0-30.0) sec D-Dimer 0.60 H (<0.60) mg/L FEU Sodium 138 (137-145) mmol/L Potassium 4.0 (3.5-5.1) mmol/L Chloride 107 (98-107) mmol/L Carbon Dioxide 26 (22-30) mmol/L Anion Gap 5 mmol/L BUN 11 (7-17) mg/dL Creatinine 0.81 (0.52-1.04) mg/dL Est GFR (CKD-EPI)AfAm 88 (>60 ml/min/1.73 sqM) Est GFR (CKD-EPI)NonAf 76 (>60 ml/min/1.73 sqM) Glucose 103 H (74-99) mg/dL Calcium 9.2 (8.4-10.2) mg/dL Magnesium 1.9 (1.6-2.3) mg/dL Total Bilirubin 0.4 (0.2-1.3) mg/dL AST 22 (14-36) U/L ALT 7 (4-34) U/L Alkaline Phosphatase 64 (38-126) U/L Troponin I (0.000-0.034) ng/mL Total Protein 6.8 (6.3-8.2) g/dL Albumin 4.0 (3.5-5.0) g/dL Amylase 57 (30-110) U/L Lipase 109 (23-300) U/L 01/10/22 Range/Units 10:33 WBC (3.8-10.6) k/uL RBC (3.80-5.40) m/uL Hgb (11.4-16.0) gm/dL Hct (34.0-46.0) % MCV (80.0-100.0) fL MCH (25.0-35.0) pg MCHC (31.0-37.0) g/dL RDW (11.5-15.5) % Plt Count (150-450) k/uL MPV Neutrophils % % Lymphocytes % % Monocytes % % Eosinophils % % Basophils % % Neutrophils # (1.3-7.7) k/uL Lymphocytes # (1.0-4.8) k/uL Monocytes # (0-1.0) k/uL Eosinophils # (0-0.7) k/uL Basophils # (0-0.2) k/uL PT (9.0-12.0) sec INR (<1.2) APTT (22.0-30.0) sec D-Dimer (<0.60) mg/L FEU Sodium (137-145) mmol/L Potassium (3.5-5.1) mmol/L Chloride (98-107) mmol/L Carbon Dioxide (22-30) mmol/L Anion Gap mmol/L BUN (7-17) mg/dL Creatinine (0.52-1.04) mg/dL Est GFR (CKD-EPI)AfAm (>60 ml/min/1.73 sqM) Est GFR (CKD-EPI)NonAf (>60 ml/min/1.73 sqM) Glucose (74-99) mg/dL Calcium (8.4-10.2) mg/dL Magnesium (1.6-2.3) mg/dL Total Bilirubin (0.2-1.3) mg/dL AST (14-36) U/L ALT (4-34) U/L Alkaline Phosphatase (38-126) U/L Troponin I 0.591 H* (0.000-0.034) ng/mL Total Protein (6.3-8.2) g/dL Albumin (3.5-5.0) g/dL Amylase (30-110) U/L Lipase (23-300) U/L - Radiology Data Radiology results: image reviewed (Chest x-ray shows no acute process) Disposition Clinical Impression: Acute non-ST elevation myocardial infarction (NSTEMI) Disposition: ADMITTED IP TO THIS HOSP Is patient prescribed a controlled substance at d/c from ED?: No Referrals: Olinda Myers DO [Primary Care Provider] - 1-2 days Time of Disposition: 11:52
[2022-01-10 10:41] LABS: Basophils # (A) 0.1 k/uL (0-0.2); Basophils % (A) 1 %; Eosinophils # (A) 0.2 k/uL (0-0.7); Eosinophils % (A) 3 %; HCT 42.7 % (34.0-46.0); HGB 14.3 gm/dL (11.4-16.0); Lymphocytes % (A) 24 %; MCH 30.6 pg (25.0-35.0); MCHC 33.4 g/dL (31.0-37.0); MCV 91.6 fL (80.0-100.0); Mean Platelet Volume 8.7; Monocytes # (A) 0.3 k/uL (0-1.0); Monocytes % (A) 4 %; Neutrophils # (A) 5.4 k/uL (1.3-7.7); Neutrophils % (A) 66 %; Platelet Count 153 k/uL (150-450); RBC 4.66 m/uL (3.80-5.40); RDW 12.8 % (11.5-15.5); WBC 8.1 k/uL (3.8-10.6)
--- NOTE | 2022-01-10 10:48 | XR ---
EXAMINATION TYPE: XR chest 2V DATE OF EXAM: 01/10/2022 COMPARISON: Chest x-ray July 04, 2013 HISTORY: Chest pain for 2 days. TECHNIQUE: Frontal and lateral views of the chest are obtained. FINDINGS: There is no suspicious new focal air space opacity, pleural effusion, or pneumothorax seen . The cardiac silhouette size remains within normal limits. Overlying EKG leads are redemonstrated. The osseous structures are intact. IMPRESSION: No acute process. No significant change from prior.
[2022-01-10 10:52] LABS: Calcium 9.2 mg/dL (8.4-10.2); Magnesium 1.9 mg/dL (1.6-2.3); Total Bilirubin 0.4 mg/dL (0.2-1.3); Total Protein 6.8 g/dL (6.3-8.2)
[2022-01-10 11:00] LABS: INR 0.9 (<1.2); Partial Thromboplastin Time 22.7 sec (22.0-30.0); Prothrombin Time 10.1 sec (9.0-12.0)
[2022-01-10] MEDS ORDERED: NITROGLYCERIN SL TABS 0.4 MG TAB SUBLINGUAL PRN (11:58)
[2022-01-10] MEDS ORDERED: HEPARIN SODIUM 1,000 UN/ML (10ML VL) IV ONE (11:58)
[2022-01-10] MEDS: HEPARIN SOD,PORK IN 0.45% NACL 25,000 UNIT in 0.45% NACL 1 250ML.BAG IV SCH (12:24)
[2022-01-10] MEDS: NITROGLYCERIN OINT 1 INCH/GM PACKET TOPICAL SCH ×2 (12:25→18:36)
[2022-01-10] MEDS ORDERED: NALOXONE 0.4 MG/ML 1 ML VIAL IV PRN (13:11)
[2022-01-10] MEDS ORDERED: ALBUTEROL NEBULIZED 2.5 MG/3 ML INHALATION PRN (13:13)
--- NOTE | 2022-01-10 13:22 | P.HPIM ---
History of Present Illness H&P Date: 01/10/22 Chief Complaint: chest pain 66-year-old female presenting to the emergency Department with chest discomfort. Symptoms have been present for the past 2-3 days. Symptoms don't have to be exertional and can happen at rest. Pain is associated with diaphoresis, nausea, pain radiates to the back and left arm. She states that she last followed up with a manager human capital was about 6 months ago at which time she had a chemical stress test as well as an echocardiogram and both of which were okay according to patient. She denied any recent illness, no fevers or chills. No diarrhea. In the emergency department her troponin was found to be elevated at 0.59. EKG showed T -wave inversion in leads 1, 2 as well as V1 and V2. Patient was started on IV heparin and then admitted for further evaluation by cardiology. Review of Systems Complete review of system performed, pertinent positives per HPI, otherwise negative. Past Medical History Past Medical History: Coronary Artery Disease (CAD), Chest Pain / Angina, COPD, GERD/Reflux, Hyperlipidemia, Myocardial Infarction ([place]), Osteoarthritis (OA) Additional Past Medical History / Comment(s): hx migraines, hiatal hernia ,crohns, diverticulits, environmental allergies, states she has aortitis., cysts on kidney, gall stones, nausea and gall bladder pain. Last Myocardial Infarction Date:: 08/2004 History of Any Multi-Drug Resistant Organisms: None Reported Past Surgical History: Appendectomy, Heart Catheterization, Hernia Repair, Hysterectomy Additional Past Surgical History / Comment(s): oophorectomy, bowel obstruction surgery/adhesions x 2, laparoscopy, colonscopy, rt wrist capal tunnel Past Anesthesia/Blood Transfusion Reactions: No Reported Reaction, Blood Transfusion Reaction Additional Past Anesthesia/Blood Transfusion Reaction / Comment(s): high fever with blood transfusion Past Psychological History: No Psychological Hx Reported Smoking Status: Current every day smoker Past Alcohol Use History: None Reported Past Drug Use History: None Reported - Past Family History Father Family Medical History: Cancer Additional Family Medical History / Comment(s): kidney cancer Sister(s) Family Medical History: Cancer Additional Family Medical History / Comment(s): throat cancer Medications and Allergies Home Medications Medication Instructions Recorded Confirmed Type Estrogens, Conjugated [Premarin] 1.25 mg PO HS 09/28/01/10/22 History Levocetirizine Dihydrochloride 5 mg PO HS 09/28/16 01/10/22 History [Xyzal] Pantoprazole Sodium 40 mg PO DAILY 09/28/16 01/10/22 History Albuterol Inhaler [Ventolin Hfa 2 puff INHALATION RT-Q6H PRN 08/31/18 01/10/22 History Inhaler] Atorvastatin [Lipitor] 40 mg PO HS 08/31/18 01/10/22 History carvediloL [Coreg] 6.25 mg PO BID 08/31/18 01/10/22 History Aspirin EC [Ecotrin] 325 mg PO HS 01/10/22 01/10/22 History HYDROcodone/APAP 7.5-325MG [[place] 1 tab PO Q8H PRN 01/10/22 01/10/22 History 7.5-325] Losartan Potassium 100 mg PO DAILY 01/10/22 01/10/22 History cloNIDine HCL [Catapres] 0.05 mg PO BID 01/10/22 01/10/22 History Allergies Allergy/AdvReac Type Severity Reaction Status Date / Time No Known Allergies Allergy Verified 01/10/22 12:01 Physical Exam Vitals: Vital Signs Temp Pulse Resp BP Pulse Ox 01/10/22 12:28 49 L 18 155/64 99 01/10/22 11:15 50 L 18 171/72 96 01/10/22 10:06 97.3 F L 71 20 192/75 97 Intake and Output 01/09/22 01/10/22 01/10/22 22:59 06:59 14:59 Other: Weight 49.895 kg Constitutional: No acute distress, conversant, pleasant Eyes:Anicteric sclerae, moist conjunctiva, no lid-lag, PERRLA, ENMT: Oropharynx clear, no erythema, exudates Neck: Supple, FROM, no masses, or JVD, No carotid bruits, No thyromegaly Lungs: Clear to auscultation, Clear to percussion, Normal respiratory effort, no accessory muscle use Cardiovascular: Heart regular in rate and rhythm, No murmurs, gallops, or rubs, No peripheral edema Abdominal: Soft, Nontender, no guarding, rebound or rigidity, Normoactive bowel sounds, No hepatomegaly, No splenomegaly, No palpable mass Skin: Normal temperature, tone, texture, turgor, no induration, No subcutaneous nodules, No rash, lesions, No ulcers Extremities: No digital cyanosis, No clubbing, Pedal pulses intact and symmetrical, Radial pulses intact and symmetrical, No calf tenderness Psychiatric: Alert and oriented to person, place and time, appropriate affect, intact judgement Neuro: Muscles Strength 5/5 in all 4 extremities, Sensation to light touch grossly present throughout, Cranial nerves II-XII grossly intact, no focal sensory deficits Results CBC & Chem 7: 01/10/22 10:33 01/10/22 10:33 Labs: Abnormal Lab Results - Last 24 Hours (Table) 01/10/22 01/10/22 01/10/22 Range/Units 10:33 10:33 10:33 D-Dimer 0.60 H (<0.60) mg/L FEU Glucose 103 H (74-99) mg/dL Troponin I 0.591 H* (0.000-0.034) ng/mL Assessment and Plan Plan: Acute non-ST elevation [place] Heparin drip Continue aspirin, statin, beta sultana, she is already on those at home. Cycle troponins Consult cardiology Admit to telemetry floor Hypertension Crohn disease Hyperlipidemia Chronic Resume meds DVT prophylaxis Heparin as above Admit to inpatient, expected length of stay more than 2 midnights
--- NOTE | 2022-01-10 16:15 | P.HPIM ---
History of Present Illness H&P Date: 01/10/22 Chief Complaint: Chest pain 66-year-old female, with history of CAD, COPD, hypertension and hyperlipidemia, presenting to the emergency Department with chest discomfort. Symptoms have been present for the past 2-3 days. Discomfort was worse yesterday. Discomfort is fairly mild at this time. Discomfort feels like pressure and there has been some radiation towards the back and arm. Patient did have nausea yesterday with dry heaves. Patient has been a little bit sweaty. No dyspnea. Patient states symptoms do worsen with exertion. Patient does have history of similar symptoms previously associated with heart attack. EKG Findings:: Size pericardial 58. SC 169. QRS 90. QT 475. QTC 472. Normal axis. Normal QRS. T wave inversion V2 and aVL. Prominent inferior Q waves. Blood work reveals WBC 8.1, hemoglobin 14.3, platelet count of 153, sodium 138, potassium 4.0, BUN/creatinine of 11/0.81; troponin elevated at 0.591; chest x- ray is unremarkable Patient is placed on IV heparin and is admitted for further cardiology evaluation Review of Systems REVIEW OF SYSTEMS: CONSTITUTIONAL: No fever, no malaise, no fatigue. HEENT: No recent visual problems or hearing problems. Denied any sore throat. CARDIOVASCULAR: No chest pain, orthopnea, PND, no palpitations, no syncope. PULMONARY: No shortness of breath, no cough, no hemoptysis. GASTROINTESTINAL: No diarrhea, no nausea, no vomiting, no abdominal pain. NEUROLOGICAL: No headaches, no weakness, no numbness. HEMATOLOGICAL: Denies any bleeding or petechiae. GENITOURINARY: Denies any burning micturition, frequency, or urgency. MUSCULOSKELETAL/RHEUMATOLOGICAL: Denies any joint pain, swelling, or any muscle pain. ENDOCRINE: Denies any polyuria or polydipsia. The rest of the 14-point review of systems is negative. Past Medical History Past Medical History: Coronary Artery Disease (CAD), Chest Pain / Angina, COPD, GERD/Reflux, Hyperlipidemia, Myocardial Infarction (NV), Osteoarthritis (OA) Additional Past Medical History / Comment(s): hx migraines, hiatal hernia ,crohns, diverticulits, environmental allergies, states she has aortitis., cysts on kidney, gall stones, nausea and gall bladder pain. Last Myocardial Infarction Date:: 08/2004 History of Any Multi-Drug Resistant Organisms: None Reported Past Surgical History: Appendectomy, Cholecystectomy, Heart Catheterization, Hernia Repair, Hysterectomy Additional Past Surgical History / Comment(s): oophorectomy, bowel obstruction surgery/adhesions x 2, laparoscopy, colonscopy, rt wrist capal tunnel Past Anesthesia/Blood Transfusion Reactions: No Reported Reaction, Blood Transfusion Reaction Additional Past Anesthesia/Blood Transfusion Reaction / Comment(s): high fever with blood transfusion Past Psychological History: No Psychological Hx Reported Smoking Status: Current every day smoker Past Alcohol Use History: None Reported Additional Past Alcohol Use History / Comment(s): hx of smoking 1/2 PPD for 40 yrs- currently smoking less than 1/2ppd Past Drug Use History: None Reported - Past Family History Father Family Medical History: Cancer Additional Family Medical History / Comment(s): kidney cancer Sister(s) Family Medical History: Cancer Additional Family Medical History / Comment(s): throat cancer Medications and Allergies Home Medications Medication Instructions Recorded Confirmed Type Estrogens, Conjugated [Premarin] 1.25 mg PO HS 09/28/16 01/10/22 History Levocetirizine Dihydrochloride 5 mg PO HS 09/28/16 01/10/22 History [Xyzal] Pantoprazole Sodium 40 mg PO DAILY 09/28/16 01/10/22 History Albuterol Inhaler [Ventolin Hfa 2 puff INHALATION RT-Q6H PRN 08/31/18 01/10/22 History Inhaler] Atorvastatin [Lipitor] 40 mg PO HS 08/31/18 01/10/22 History carvediloL [Coreg] 6.25 mg PO BID 08/31/18 01/10/22 History Aspirin EC [Ecotrin] 325 mg PO HS 01/10/22 01/10/22 History HYDROcodone/APAP 7.5-325MG [[place] 1 tab PO Q8H PRN 01/10/22 01/10/22 History 7.5-325] Losartan Potassium 100 mg PO DAILY 01/10/22 01/10/22 History cloNIDine HCL [Catapres] 0.05 mg PO BID 01/10/22 01/10/22 History Allergies Allergy/AdvReac Type Severity Reaction Status Date / Time No Known Allergies Allergy Verified 01/10/22 12:01 Physical Exam Vitals: Vital Signs Temp Pulse Pulse Resp BP BP Pulse Ox 01/10/22 13:46 97.6 F 53 L 16 157/62 98 01/10/22 13:18 81 18 95 01/10/22 12:28 49 L 18 155/64 99 01/10/22 11:15 50 L 18 171/72 96 01/10/22 10:06 97.3 F L 71 20 192/75 97 Intake and Output 01/10/22 01/10/22 01/10/22 06:59 14:59 22:59 Other: Weight 49.895 kg PHYSICAL EXAMINATION: GENERAL: The patient is alert and oriented x3, not in any acute distress. Well developed, well nourished. HEENT: Pupils are round and equally reacting to light. EOMI. No scleral icterus. No conjunctival pallor. Normocephalic, atraumatic. No pharyngeal erythema. No thyromegaly. CARDIOVASCULAR: S1 and S2 present. No murmurs, rubs, or gallops. PULMONARY: Chest is clear to auscultation, no wheezing or crackles. ABDOMEN: Soft, nontender, nondistended, normoactive bowel sounds. No palpable organomegaly. MUSCULOSKELETAL: No joint swelling or deformity. EXTREMITIES: No cyanosis, clubbing, or pedal edema. NEUROLOGICAL: Gross neurological examination did not reveal any focal deficits. SKIN: No rashes. Results CBC & Chem 7: 01/10/22 10:33 01/10/22 10:33 Labs: Abnormal Lab Results - Last 24 Hours (Table) 01/10/22 01/10/22 01/10/22 Range/Units 10:33 10:33 10:33 D-Dimer 0.60 H (<0.60) mg/L FEU Glucose 103 H (74-99) mg/dL Troponin I 0.591 H* (0.000-0.034) ng/mL Thrombosis Risk Factor Assmnt - Choose All That Apply Any of the Below Risk Factors Present?: Yes Each Factor Represents 1 point: Abnormal pulmonary function (COPD) Other Risk Factors: Yes Each Risk Factor Represents 2 Points: Age 61-74 years Thrombosis Risk Factor Assessment Total Risk Factor Score: 3 Thrombosis Risk Factor Assessment Level: Moderate Risk Assessment and Plan Assessment: 1. Non-STEMI - Patient has been placed on IV heparin per protocol; we will monitor EKG and trend troponin; order 2-D echo; patient remains on IV heparin per ACS protocol - Cardiology is consulted; appreciate their input in patient management 2. Uncontrolled hypertension; patient was replaced on home dose of Coreg 6.25 mg twice a day, clonidine 0.5 mg twice a day, lisinopril 20 mg by mouth daily at bedtime and losartan 100 mg daily; monitor blood pressure closely with primary; we will make further changes in antihypertensive therapy as deemed necessary 3. Hyperlipidemia; Lipitor 40 mg by mouth daily at bedtime 4. Asthma/COPD; continue with home inhaler therapy; Xyzal 5 mg daily at bedtime 5. Gastroesophageal reflux disease; Protonix 40 mg daily DVT prophylaxis; SCDs/IV heparin CODE STATUS; full code
[2022-01-10] MEDS ORDERED: ASPIRIN 325 MG TAB PO SCH (21:00)
[2022-01-10] MEDS ORDERED: lisinopriL 20 MG TAB PO SCH (21:00)
[2022-01-10] MEDS: carvediloL 6.25 MG TAB PO SCH (21:17)
[2022-01-10] MEDS: LORATADINE 10 MG TAB PO SCH (21:17)
[2022-01-10] MEDS: ATORVASTATIN 40 MG TAB PO SCH (21:17)
[2022-01-10] MEDS: cloNIDine HCL 0.1 MG TAB PO SCH (21:18)
[2022-01-11] MEDS: NITROGLYCERIN OINT 1 INCH/GM PACKET TOPICAL SCH ×4 (00:15→17:31)
[2022-01-11 03:47] LABS: Basophils % (A) 1 %; Eosinophils # (A) 0.2 k/uL (0-0.7); Eosinophils % (A) 4 %; HCT 38.5 % (34.0-46.0); HGB 12.9 gm/dL (11.4-16.0); Lymphocytes # (A) 2.5 k/uL (1.0-4.8); Lymphocytes % (A) 45 %; MCH 30.8 pg (25.0-35.0); MCHC 33.4 g/dL (31.0-37.0); MCV 92.2 fL (80.0-100.0); Mean Platelet Volume 9.2; Monocytes # (A) 0.3 k/uL (0-1.0); Monocytes % (A) 6 %; Neutrophils # (A) 2.3 k/uL (1.3-7.7); Neutrophils % (A) 41 %; Platelet Count 138 k/uL (150-450); RBC 4.18 m/uL (3.80-5.40); RDW 13.1 % (11.5-15.5); WBC 5.6 k/uL (3.8-10.6)
[2022-01-11 04:16] LABS: ALT <6 U/L (4-34); AST 19 U/L (14-36); African American GFR (CKD) >90 (>60 ml/min/1.73 sqM); Albumin 3.2 g/dL (3.5-5.0); Alkaline Phosphatase 51 U/L (38-126); Anion Gap 2 mmol/L; Blood Urea Nitrogen 16 mg/dL (7-17); Calcium 8.4 mg/dL (8.4-10.2); Carbon Dioxide 24 mmol/L (22-30); Chloride 108 mmol/L (98-107); Glucose 89 mg/dL (74-99); Magnesium 1.8 mg/dL (1.6-2.3); Non-African American GFR(CKD) 81 (>60 ml/min/1.73 sqM); Potassium 3.8 mmol/L (3.5-5.1); Sodium 134 mmol/L (137-145); Total Bilirubin 0.1 mg/dL (0.2-1.3); Total Protein 5.7 g/dL (6.3-8.2)
[2022-01-11] MEDS ORDERED: HEPARIN SODIUM,PORCINE 2,500 UNIT in SODIUM CHLORIDE 0.9% 250 ML IRRIGATION PRN (07:00)
[2022-01-11] MEDS ORDERED: HEPARIN SODIUM,PORCINE 10,000 UNIT in SODIUM CHLORIDE 0.9% 1,000 ML IRRIGATION PRN (07:00)
[2022-01-11] MEDS: cloNIDine HCL 0.1 MG TAB PO SCH ×2 (08:51→21:06)
[2022-01-11] MEDS: PANTOPRAZOLE 40 MG TABLET PO SCH (08:52)
[2022-01-11] MEDS: LOSARTAN 50 MG TAB PO SCH (08:52)
[2022-01-11] MEDS: carvediloL 6.25 MG TAB PO SCH ×2 (08:52→21:07)
[2022-01-11] MEDS ORDERED: ASPIRIN 325 MG TAB PO SCH (09:00)
[2022-01-11] MEDS ORDERED: ATORVASTATIN 80 MG TAB PO STA (10:49)
[2022-01-11] MEDS ORDERED: ALPRAZolam 0.5 MG TAB PO PRN ×2 (10:49→10:58)
[2022-01-11] MEDS ORDERED: NITROGLYCERIN SL TABS 0.4 MG TAB SUBLINGUAL PRN (10:49)
[2022-01-11] MEDS ORDERED: ALPRAZolam 0.25 MG TAB PO PRN ×2 (10:49→10:58)
[2022-01-11 10:54] LABS: Chol/HDL Ratio 2.47 Ratio; LDL Cholesterol,Calculated 60.3 mg/dL (0.0-131.0)
[2022-01-11] MEDS ORDERED: VERAPAMIL 2.5 MG/ML 2 ML AMP ONE (11:07)
--- NOTE | 2022-01-11 11:10 | CA ---
Transthoracic Echo Report Name: Virginia Gayle Age: 66 Gender: F : 1955 Exam Date: 01/11/2022 09:18 Exam Location: [place] [facility] Ht (in): 64 Wt (lb): 115 Ordering Physician: Evie Galan MD Attending/Referring Phys: [id number], Angelia Willow Analyst Daisy Estevez RDCS Procedure CPT: Indications: nstemi Cardiac Hx: Htn,DE,Chol Technical Quality: Good Contrast 1: Total Dose (mL): Contrast 2: Total Dose (mL): MEASUREMENTS (Male / Female) Normal Values 2D ECHO LV Diastolic Diameter PLAX 4.7 cm 4.2 - 5.9 / 3.9 - 5.3 cm LV Systolic Diameter PLAX 2.6 cm IVS Diastolic Thickness 0.7 cm 0.6 - 1.0 / 0.6 - 0.9 cm LVPW Diastolic Thickness 1.0 cm 0.6 - 1.0 / 0.6 - 0.9 cm LV Relative Wall Thickness 0.4 LA Volume 38.8 cm??? 18 - 58 / 22 - 52 cm??? M-MODE Aortic Root Diameter MM 2.8 cm LA Systolic Diameter MM 3.9 cm LA Ao Ratio MM 1.4 MV E Point Septal Separation 0.5 cm AV Cusp Separation MM 1.7 cm DOPPLER AV Peak Velocity 103.6 cm/s AV Peak Gradient 4.3 mmHg MV Area PHT 3.0 cm??? MR Peak Velocity 473.3 cm/s MR Peak Gradient 89.6 mmHg Mitral E Point Velocity 79.4 cm/s Mitral A Point Velocity 81.5 cm/s Mitral E to A Ratio 1.0 MV Deceleration Time 254.7 ms MV E' Velocity 4.0 cm/s Mitral E to MV E' Ratio 19.7 TR Peak Velocity 81.8 cm/s TR Peak Gradient 2.7 mmHg Right Ventricular Systolic Press 7.7 mmHg FINDINGS Left Ventricle Grade 1 diastolic dysfunction. Left ventricular ejection fraction is estimated at45-50 %. Apical anterior, and anteroseptal are hypokinetic.left ventricular cavity size normal. Left ventricular wall thickness normal. Right Ventricle The right ventricle is normal in size and function. Right Atrium The right atrium is normal in size. Left Atrium The left atrium is normal in size. Mitral Valve Structurally normal mitral valve without significant stenosis or prolapse. There is mild mitral regurgitation. Aortic Valve Structurally normal aortic valve without significant sclerosis or stenosis. There is no aortic regurgitation. Focal thickening of the aortic valve cusps. Tricuspid Valve Structurally normal tricuspid valve without significant stenosis. Pulmonary artery systolic pressure is normal. Mild tricuspid regurgitation. Pulmonic Valve Structurally normal pulmonic valve without significant stenosis. There is no pulmonic regurgitation. Pericardium Normal pericardium without effusion. Aorta Normal aortic root dimension. CONCLUSIONS 1. Mildly impaired systolic function with segmental wall motion abnormality 2. Mild mitral and tricuspid regurgitation 3. No pericardial effusion Previewed by: Dr. Hector Monique MD (Electronically Signed) Final Date: 11 January 2022 11:10
[2022-01-11] MEDS ORDERED: HEPARIN SODIUM 1,000 UN/ML (10ML VL) ONE (11:20)
[2022-01-11] MEDS ORDERED: MIDAZOLAM 2 MG/2 ML VIAL IV ONE (11:35)
[2022-01-11] MEDS ORDERED: SODIUM CHLORIDE 0.9% 1,000 ML IV ONE (11:39)
[2022-01-11] MEDS ORDERED: HYDROmorphone 0.5 MG/0.5 ML SYRINGE IVP ONE (11:47)
[2022-01-11] MEDS ORDERED: LIDOCAINE 1% INJ 10MG/ML (5 ML VIAL-PF) SQ ONE (11:48)
[2022-01-11] MEDS ORDERED: VERAPAMIL SYRINGE (5 MG/10 ML) INTRAARTER ONE (11:49)
[2022-01-11] MEDS ORDERED: HEPARIN SODIUM 1,000 UN/ML (10ML VL) IV ONE (11:49)
[2022-01-11] MEDS: NITROGLYCERIN 1000MCG/10ML SYRINGE INTRACORON ONE ×2 (11:53→12:11)
[2022-01-11] MEDS ORDERED: FUROSEMIDE 10 MG/ML 4 ML VIAL ONE (12:09)
[2022-01-11] MEDS ORDERED: IOPAMIDOL-370 100ML BTL INJ ONE (12:09)
[2022-01-11] MEDS ORDERED: FUROSEMIDE 10 MG/ML 4 ML VIAL IV ONE (12:10)
[2022-01-11] MEDS ORDERED: HEPARIN SOD,PORK IN 0.45% NACL 25,000 UNIT in 0.45% NACL 1 250ML.BAG IV SCH (12:30)
--- NOTE | 2022-01-11 12:54 | CONS ---
CONSULTATION This is a 66-year-old lady with history of smoking, hypertension and also nonspecific idiopathic aortitis involving the distal portion of the abdominal aorta and also iliac arteries with small aneurysms. She smokes and has hypertension. Cardiac cath in 2007 revealed a 55% ostial LAD lesion with some disease involving the diagonal branch also of about 80%. Circumflex was free of significant disease and RCA was a dominant vessel. She came into the hospital with episode of chest pain. She seems to be under some stress, had discomfort, tightness and pressure in the chest that has resolved completely. Troponins are up. EKG revealed precordial T-wave inversion. Clinical picture is that of a non-ST- elevation IL with a peak troponin of 0.59. She is resting comfortably at the time of my evaluation without symptoms. PAST MEDICAL HISTORY: 1. Hypertension. 2. Hyperlipidemia. 3. 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 4. She has mild mitral valve prolapse with mild to moderate regurgitation. MEDICATIONS: Medications at home include: Carvedilol 6.25 mg b.i.d., aspirin 81 mg daily, Lipitor 40 mg daily, losartan 100 mg daily, and she also takes some pain medications. PHYSICAL EXAMINATION: On examination, blood pressure is 140/80, pulse rate is 70 per minute. HEENT unremarkable. Fundus was not examined by me. NECK is supple. There is no JVD. I do not hear a carotid bruit. HEART exam reveals S1, S2 heard normally. No significant murmurs. LUNGS are clear. ABDOMEN is soft, nontender. Lower extremity with normal pulses. No edema. Central nervous system is normal. IMPRESSION: 1. Non ST elevation IL. Rule out any apical ballooning syndrome. 2. Smoking and chronic obstructive pulmonary disease. 3. History of idiopathic aortitis with bilateral small iliac aneurysms. 4. History of hyperlipidemia. RECOMMENDATIONS: I recommend cardiac catheterization based on findings intervention. Discussed the rationale risks benefits options with the patient and and proceeded with the procedure. MMODL / IJN: [id number] /
--- NOTE | 2022-01-11 12:57 | CC ---
CARDIAC CATHETERIZATION REPORT DATE OF SERVICE: 01/11/2022. PROCEDURE: Left heart catheterization, coronary angiography and left ventriculography. PERFORMED BY: Dr. Ravi Torres. Moderate conscious sedation time was 35 minutes. Patient was administered Versed. Oxygen saturation, hemodynamics and EKG were monitored closely. CLINICAL INFORMATION: Mrs. Virginia Gayle is a 66-year-old lady admitted to the hospital with chest pain and troponin elevation, precordial T-wave inversion and area of some apical hypokinesia on echocardiograph. She was advised cardiac cath. Risks, benefits, options, rationale were explained. PROCEDURE NOTE: Under local anesthesia and strict aseptic precautions, a 6-American introducer was placed in the right radial artery. I had some difficulty and eventually used a micropuncture needle technique. The patient had some spasm. Cardiac catheterization was performed with a JL-4 and a JL3.5 catheter. LV gram was performed with a pigtail catheter. The sheath was taken out and TR band applied as per protocol with saturation of the fingers of the right hand of more than 94%. CARDIAC CATHETERIZATION: Left ventricular end-diastolic pressure was 10-11 mmHg without any gradient across aortic valve. CORONARY ANGIOGRAPHY FINDINGS: RIGHT CORONARY ARTERY: Right coronary artery is technically a dominant vessel. No significant disease. Minor irregularities, distally bifurcates into PDA and PLV, both of which supply a fair amount of myocardium. LEFT MAIN CORONARY ARTERY: Short, patent disease-free vessel that bifurcates to LAD and circumflex. LEFT ANTERIOR DESCENDING CORONARY ARTERY: This has an ostial disease of about 55%. Angiographically looks very similar to the previous angiogram. There are 2 diagonal branches, 1 diagonal branch comes off very proximally, another 1 diagonal branch comes off in the mid portion. The proximal diagonal branch has a 90% stenosis. The 2nd diagonal branch has about a 70% stenosis and the mid LAD at the origin of the diagonal branch has about a 40% disease. LAD then improves in caliber, runs all the way to the apex, curves over the apex to supply the inferoapical portion of left ventricle. The LAD therefore has ostial 55%, first diagonal has a 90%, second diagonal has a 70%, mid LAD has a 40% lesion. LEFT POSTERIOR CIRCUMFLEX CORONARY ARTERY: Nondominant vessel good caliber, gives off 2 obtuse marginal branches and AV groove branch, has minor irregularities. No significant disease. Left ventriculogram was performed in 30 degree MARTINEZ projection revealed left ventricle is of normal size with focal hypokinesia involving the mid anterior wall, almost look like atypical takotsubo type picture. Ejection fraction is 45% without mitral regurgitation. FINAL IMPRESSION: This patient has normal filling pressures. No gradient. Ejection fraction of about 45% with mid anterior wall hypokinesia almost looks like atypical takotsubo type picture. There is an ostial LAD of 55% disease, mid LAD 40% disease, 2 diagonal branches disease, first proximal is 90%, mid is 70%. Small vessels of about 1.5 mm. The circumflex and dominant RCA are free of significant disease. RECOMMENDATIONS: For now, we will pursue medical therapy and I will consider intravascular ultrasound or FFR of LAD after patient is more stable. For now, we will pursue medical therapy, smoking cessation. The findings were discussed with the patient as well as her . She was sent to the room in a stable condition. MMODL / IJN: [id number] /
[2022-01-11] MEDS: HYDROcodone/APAP 7.5-325MG 1 EACH TAB PO PRN ×2 (13:06→22:25)
[2022-01-11] MEDS: SODIUM CHLORIDE 0.9% 1,000 ML in EMPTY BAG 1 BAG IV SCH (13:12)
[2022-01-11] MEDS: HEPARIN SOD,PORK IN 0.45% NACL 25,000 UNIT in 0.45% NACL 1 250ML.BAG IV SCH (13:17)
--- NOTE | 2022-01-11 15:22 | P.PN ---
Subjective Progress Note Date: 01/11/22 This is a 66 year old female who presents with chest pain for the past 2-3 days and reports mild discomfort today. She has been started on heparin gtt and troponin levels have been positive at 0.591., 0.527, and 0.479. Cholesterol panel today showing triglycerides 142, cholesterol 149, LDL 60, HDL 60.30. S odium is 134. D-Dimer was also found elevated at 0.60. Echocardiogram has been completed showing an EF of 45 to 50% with mild mitral and tricuspid regurgitation. Patient is pending evaluation by cardiology. Blood pressure today 144/76, afebrile. Review of Systems Constitutional: Denied any fatigue denied any fever. Cardio vascular: mild chest pressure, no palpitations Gastrointestinal: denied any nausea, vomiting, diarrhea Pulmonary: Denied any shortness of breath cough Neurologic denied any new focal deficits All inpatient medications were reviewed and appropriate changes in these medicat ions as dictated in the interval history and assessment and plan. PHYSICAL EXAMINATION: GENERAL: The patient is alert and oriented x3, not in any acute distress. Well developed, well nourished. HEENT: Pupils are round and equally reacting to light. EOMI. No scleral icterus. No conjunctival pallor. Normocephalic, atraumatic. No pharyngeal erythema. No thyromegaly. CARDIOVASCULAR: S1 and S2 present. No murmurs, rubs, or gallops. PULMONARY: Chest is clear to auscultation, no wheezing or crackles. ABDOMEN: Soft, nontender, nondistended, normoactive bowel sounds. No palpable organomegaly. MUSCULOSKELETAL: No joint swelling or deformity. EXTREMITIES: No cyanosis, clubbing, or pedal edema. NEUROLOGICAL: Gross neurological examination did not reveal any focal deficits. SKIN: No rashes. Assessment and Plan Assessment Chest pain Elevated troponin possible Non-STEMI pending cardiac evaluation Hypertension, uncontrolled Hyperlipidemia Asthma/COPD not in acute exacerbation Gastroesophageal Reflux Disease Daily nicotine use DVT Prophylaxis SubCU heparin DVT Prophylaxis Protonix Full Code Plan Pending cardiology evaluation Continue IV heparin gtt Possible heart catheterization today Continue current medications Possible DC tomorrow if cleared by cardiology The impression and plan of care has been dictated by Pallavi Schuler Nurse Practitioner as directed. Dr. Lane MD I have performed a history and physical examination and medical decision making of this patient, discussed the same with the dictator, and agree with the dictators assessment and plan as written, documented as a scribe. Based on total visit time, I have performed more than 50% of this visit. Objective - Vital Signs Vital signs: Vital Signs Temp 98.5 F 01/11/22 08:00 Pulse 64 01/11/22 13:43 Resp 18 01/11/22 12:00 BP 144/76 01/11/22 13:45 Pulse Ox 95 01/11/22 12:00 FiO2 Intake & Output 01/10/22 01/11/22 01/11/22 18:59 06:59 18:59 Intake Total 240 880.309 500 Balance 240 880.309 500 Weight 49.895 kg 52.3 kg Intake: IV 500 Intake, IV Titration 100.309 Amount Heparin Sod,Pork in 0.45% 100.309 NaCl 25,000 unit In 0.45 % NaCl 1 250ml.bag @ 12 UNITS/KG/HR 5.987 mls/hr IV .Q24H KAREY Rx#: [id number] Oral 240 780 0 Other: # Voids 2 - Labs CBC & Chem 7: 01/11/22 02:59 01/11/22 02:59 Labs: Abnormal Lab Results - Last 24 Hours (Table) 01/10/22 01/10/22 01/10/22 Range/Units 14:38 19:17 19:17 Plt Count (150-450) k/uL APTT 33.6 H (22.0-30.0) sec Sodium (137-145) mmol/L Chloride (98-107) mmol/L Total Bilirubin (0.2-1.3) mg/dL Troponin I 0.527 H* 0.479 H* (0.000-0.034) ng/mL Total Protein (6.3-8.2) g/dL Albumin (3.5-5.0) g/dL HDL Cholesterol (40.00-60.00) mg/dL 01/11/22 01/11/22 01/11/22 Range/Units 02:59 02:59 02:59 Plt Count 138 L (150-450) k/uL APTT 43.6 H (22.0-30.0) sec Sodium 134 L (137-145) mmol/L Chloride 108 H (98-107) mmol/L Total Bilirubin 0.1 L (0.2-1.3) mg/dL Troponin I (0.000-0.034) ng/mL Total Protein 5.7 L (6.3-8.2) g/dL Albumin 3.2 L (3.5-5.0) g/dL HDL Cholesterol 60.30 H (40.00-60.00) mg/dL 01/11/22 Range/Units 10:00 Plt Count (150-450) k/uL APTT 49.5 H (22.0-30.0) sec Sodium (137-145) mmol/L Chloride (98-107) mmol/L Total Bilirubin (0.2-1.3) mg/dL Troponin I (0.000-0.034) ng/mL Total Protein (6.3-8.2) g/dL Albumin (3.5-5.0) g/dL HDL Cholesterol (40.00-60.00) mg/dL Assessment and Plan Time with Patient: Less than 30
[2022-01-11] MEDS: ATORVASTATIN 40 MG TAB PO SCH (21:07)
[2022-01-11] MEDS: LORATADINE 10 MG TAB PO SCH (21:07)
[2022-01-11] MEDS: SODIUM CHLORIDE 0.9% 1,000 ML IV SCH (21:10)
[2022-01-12] MEDS: SODIUM CHLORIDE 0.9% 1,000 ML IV SCH (00:23)
[2022-01-12] MEDS: NITROGLYCERIN OINT 1 INCH/GM PACKET TOPICAL SCH ×2 (00:23→06:23)
[2022-01-12] MEDS: PANTOPRAZOLE 40 MG TABLET PO SCH (06:27)
[2022-01-12] MEDS ORDERED: HEPARIN SODIUM,PORCINE 2,500 UNIT in SODIUM CHLORIDE 0.9% 250 ML IRRIGATION PRN (07:00)
[2022-01-12] MEDS ORDERED: HEPARIN SODIUM,PORCINE 10,000 UNIT in SODIUM CHLORIDE 0.9% 1,000 ML IRRIGATION PRN (07:00)
[2022-01-12 08:05] LABS: Basophils # (A) 0.1 k/uL (0-0.2); Basophils % (A) 1 %; Eosinophils # (A) 0.2 k/uL (0-0.7); Eosinophils % (A) 3 %; HGB 13.9 gm/dL (11.4-16.0); Lymphocytes # (A) 2.2 k/uL (1.0-4.8); Lymphocytes % (A) 40 %; MCH 31.1 pg (25.0-35.0); MCHC 33.9 g/dL (31.0-37.0); MCV 91.7 fL (80.0-100.0); Monocytes # (A) 0.3 k/uL (0-1.0); Monocytes % (A) 5 %; Neutrophils # (A) 2.6 k/uL (1.3-7.7); Neutrophils % (A) 48 %; Platelet Count 149 k/uL (150-450); RBC 4.47 m/uL (3.80-5.40); RDW 12.7 % (11.5-15.5); WBC 5.5 k/uL (3.8-10.6)
[2022-01-12 08:14] LABS: African American GFR (CKD) >90 (>60 ml/min/1.73 sqM); Anion Gap 8 mmol/L; Blood Urea Nitrogen 10 mg/dL (7-17); Calcium 8.5 mg/dL (8.4-10.2); Carbon Dioxide 27 mmol/L (22-30); Chloride 105 mmol/L (98-107); Glucose 102 mg/dL (74-99); Non-African American GFR(CKD) 85 (>60 ml/min/1.73 sqM); Potassium 3.8 mmol/L (3.5-5.1); Sodium 140 mmol/L (137-145)
[2022-01-12] MEDS ORDERED: ASPIRIN 81 MG PO SCH (09:00)
[2022-01-12] MEDS ORDERED: CLOPIDOGREL 75 MG TAB PO SCH (09:00)
[2022-01-12] MEDS: cloNIDine HCL 0.1 MG TAB PO SCH (09:15)
[2022-01-12] MEDS: carvediloL 6.25 MG TAB PO SCH (09:15)
[2022-01-12] MEDS: LOSARTAN 50 MG TAB PO SCH (09:16)
[2022-01-12 10:11] VITALS: RESP 14
[2022-01-12] MEDS ORDERED: ISOSORBIDE MONONITRATE ER 30 MG TAB.ER.24H PO SCH (10:45)
[2022-01-12] MEDS: SODIUM CHLORIDE 0.9% 1,000 ML in EMPTY BAG 1 BAG IV SCH (13:21)
--- NOTE | 2022-01-12 13:46 | PN ---
PROGRESS NOTE Mrs. Gayle is 66-year-old lady underwent cardiac cath yesterday for a [id number] PR. She has about a 40% lesion in the mid LAD, 50% in the ostium LAD and two diagonal branches of high-grade lesions especially the proximal diagonal. There is a focal hypokinesia, could be takotsubo type picture. No significant disease of the circumflex or RCA. I am recommending that we will continue medical therapy and also advised to quit smoking. She can be discharged later this afternoon after she ambulates the hallway and I will see her in the office on January 27. To call me if she has any questions, concern or problem. Right radial site is clean and dry with a good pulse. Heart rate is somewhat lower. I will reduce the carvedilol to 3.125 mg b.i.d. Continue all her other medications including the including Imdur 30 mg daily, which was added. She is also going to be on aspirin and Plavix combination. Discussed my thoughts in detail with the patient. She can be discharged today. Vital signs are stable. No JVD. S1, S2 heard normally. Lungs are clear. Abdomen and lower exam otherwise is unchanged. MMODL / IJN: [id number] /
[2022-01-12 15:55] VITALS: BP 129/54; PULSE 59; TEMP 98.2
[2022-01-12] MEDS: HYDROcodone/APAP 7.5-325MG 1 EACH TAB PO PRN (16:35)
[2022-01-12] MEDS ORDERED: carvediloL 3.125 MG TAB PO SCH (17:30)
--- NOTE | 2022-01-13 22:17 | P.DS ---
Providers Date of admission: 01/10/22 12:00 Attending physician: Renato Torre MD Consults: 01/10/22 11:58 Consult Physician Urgent Consulting Provider: Elinor Torres Consult Reason/Comments: nstemi Do you want consulting provider notified?: Yes Primary care physician: Olinda Eric Hospital Course: Diagnosis Chest pain Elevated troponin secondary to Non-STEMI Hypertension, uncontrolled Hyperlipidemia Asthma/COPD not in acute exacerbation Gastroesophageal Reflux Disease Daily nicotine use Full Code Discharge Disposition Patient is stable for discharge. She has been cleared from cardiac standpoint. Patient has been educated on importance of total smoking cessation. Medical management of coronary artery disease with cardiology follow up. Hospital course This is a 66 year old female who presents with chest discomfort for the past 2-3 days. Past medical history is significant for CAD, COPD, hypertension and hyperlipidemia, she is also a 1/2 pack per day smoker. Discomfort feels like pr essure and there has been some radiation towards the back and arm. Chest pain was associated with nausea, dry heaves, mild diaphoresis. Patient denies dyspnea. Patient states symptoms do worsen with exertion. Patient does have history of similar symptoms previously associated with heart attack. On admission; EKG Findings: sinus rhythm heart rate 58. TX 169. QRS 90. QT 475. QTC 472. Normal axis. Normal QRS. T wave inversion V2 and aVL. Prominent inferior Q waves. Blood work reveals WBC 8.1, hemoglobin 14.3, platelet count of 153, sodium 138, potassium 4.0, BUN/creatinine of 11/0.81; Troponin levels have been positive at 0.591., 0.527, and 0.479. Cholesterol panel showing triglycerides 142, cholesterol 149, LDL 60, HDL 60.30. Sodium is 134. D-Dimer was also found elevated at 0.60. Echocardiogram has been completed showing an EF of 45 to 50% with mild mitral and tricuspid regurgitation. Patient was placed on IV heparin and is admitted for further cardiology evaluation. Underwent cardiac catheterization on 01/11/22 which reveals a possible takotsubo picture with disease to the LAD with multiple lesions. Patient will be treated medically with decrease in carvedilol, and will continue on imdur which was new this admission. Patient had right radial approach without incident site is intact no hematoma. Chest pain has improved and patient verbalizes understanding regarding smoking cessation. 01/12/2022 Patient evaluated today resting in bed. No acute events overnight. Reports no chest pain, no shortness of breath. Plan is for discharge today. She is tolerating diet, no nausea, vomiting, or diarrhea noted. Lungs are clear, S1 S2 auscultated. Abdomen is soft and nontender, focal neurological exam is negative. Right radial puncture site in tact. Blood count panel unremarkable with exception of platelet count 149. Sodium has normalized to 140. Patient is afebrile, heart rate 59, blood pressure 129/54, 96% room air. Patient educated on lifestyle modifications including diet, smoking cessation. Medication adjustments have been made by cardiology. Recommend also to follow up with primary care in 2 to 3 days. Total time spent in discharge planning greater than 35 minutes. Please see medication reconciliation for a list of current medication. Thank you for allowing us to participate in the care of this patient. The impression and plan of care has been dictated by Pallavi Schuler, Nurse Practitioner as directed. Dr. Lane MD I have performed a history and physical examination and medical decision making of this patient, discussed the same with the dictator, and agree with the dictators assessment and plan as written, documented as a scribe. Based on total visit time, I have performed more than 50% of this visit. Patient Condition at Discharge: Stable Plan - Discharge Summary Discharge Rx Participant: No New Discharge Prescriptions: New Aspirin 81 mg PO DAILY tab carvediloL [Coreg] 3.125 mg PO BID-W/MEALS #60 tab Isosorbide Mononitrate ER [Imdur] 30 mg PO DAILY #30 tab Clopidogrel [Plavix] 75 mg PO DAILY #30 tab Continue Levocetirizine Dihydrochloride [Xyzal] 5 mg PO HS Pantoprazole Sodium 40 mg PO DAILY Estrogens, Conjugated [Premarin] 1.25 mg PO HS Atorvastatin [Lipitor] 40 mg PO HS Albuterol Inhaler [Ventolin Hfa Inhaler] 2 puff INHALATION RT-Q6H PRN PRN Reason: Shortness Of Breath cloNIDine HCL [Catapres] 0.05 mg PO BID HYDROcodone/APAP 7.5-325MG [[place] 7.5-325] 1 tab PO Q8H PRN PRN Reason: Pain Losartan Potassium 100 mg PO DAILY Discontinued carvediloL [Coreg] 6.25 mg PO BID Aspirin EC [Ecotrin] 325 mg PO HS Discharge Medication List Estrogens, Conjugated [Premarin] 1.25 mg PO HS 09/28/16 [History] Levocetirizine Dihydrochloride [Xyzal] 5 mg PO HS 09/28/16 [History] Pantoprazole Sodium 40 mg PO DAILY 09/28/16 [History] Albuterol Inhaler [Ventolin Hfa Inhaler] 2 puff INHALATION RT-Q6H PRN 08/31/18 [History] Atorvastatin [Lipitor] 40 mg PO HS 08/31/18 [History] HYDROcodone/APAP 7.5-325MG [[place] 7.5-325] 1 tab PO Q8H PRN 01/10/22 [History] Losartan Potassium 100 mg PO DAILY 01/10/22 [History] cloNIDine HCL [Catapres] 0.05 mg PO BID 01/10/22 [History] Aspirin 81 mg PO DAILY tab 01/12/22 [Rx] Clopidogrel [Plavix] 75 mg PO DAILY #30 tab 01/12/22 [Rx] Isosorbide Mononitrate ER [Imdur] 30 mg PO DAILY #30 tab 01/12/22 [Rx] carvediloL [Coreg] 3.125 mg PO BID-W/MEALS #60 tab 01/12/22 [Rx] Follow up Appointment(s)/Referral(s): Elinor Torres MD [STAFF PHYSICIAN] - 01/27/22 2:00 pm Olinda Eric DO [Primary Care Provider] - 1-2 days (call to make follow up appointment ) Ambulatory/Diagnostic Orders: Complete Blood Count w/diff [LAB.AMB] Time Frame: 3 Days, Location: None Selected Patient Instructions/Handouts: Heart Catheterization (DC), After Radial Heart Catheterization (GEN) Discharge Disposition: HOME SELF-CARE
== END 2022-01-12 17:19 | disposition home or self-care (01) | DRG 281 ==
LOC: EC 10:05 → 3SCARD 12:00
PROVIDERS: ADMIT Internal Medicine; ATTEND Internal Medicine
PROC: B2151ZZ Fluoroscopy of Left Heart using Low Osmolar Contrast (ICD-10-PCS; principal; 2022-01-11 18:30)
PROC: 4A023N7 Measurement of Cardiac Sampling and Pressure, Left Heart, Percutaneous Approach (ICD-10-PCS; principal; 2022-01-11 18:30)
PROC: B2111ZZ Fluoroscopy of Multiple Coronary Arteries using Low Osmolar Contrast (ICD-10-PCS; principal; 2022-01-11 18:30)
DX: I21.4 Non-ST elevation (NSTEMI) myocardial infarction (principal); K50.90 Crohn's disease, unspecified, without complications; E78.5 Hyperlipidemia, unspecified; Z71.6 Tobacco abuse counseling; F17.210 Nicotine dependence, cigarettes, uncomplicated; I10 Essential (primary) hypertension; I25.10 Atherosclerotic heart disease of native coronary artery without angina pectoris; I25.2 Old myocardial infarction; I08.1 Rheumatic disorders of both mitral and tricuspid valves; I77.6 Arteritis, unspecified; I72.3 Aneurysm of iliac artery; K21.9 Gastro-esophageal reflux disease without esophagitis; J44.9 Chronic obstructive pulmonary disease, unspecified; Z79.82 Long term (current) use of aspirin; Z79.899 Other long term (current) drug therapy; Z80.51 Family history of malignant neoplasm of kidney; Z80.8 Family history of malignant neoplasm of other organs or systems; N28.1 Cyst of kidney, acquired; Z28.21 Immunization not carried out because of patient refusal; M19.90 Unspecified osteoarthritis, unspecified site; G43.909 Migraine, unspecified, not intractable, without status migrainosus; K44.9 Diaphragmatic hernia without obstruction or gangrene; Z79.890 Hormone replacement therapy
CPT/HCPCS: 36415; 71046; 80048; 80053; 80061; 82150; 83690; 83735; 84484; 85025; 85379; 85610; 85730; 93005; 93306; 93458; 96365; 99285

== ENCOUNTER → 2022-03-12 | Outpatient (CLI) | payer MEDICARE ==
--- NOTE | 2022-03-12 11:17 | BD ---
EXAMINATION TYPE: Axial Bone Density DATE OF EXAM: 03/12/2022 COMPARISON: 03-09-2018 CLINICAL HISTORY: 66 years year old Female. ICD-10 CODE: Z13.820 SCREENING OSTEOPORSIS Height: 62IN Weight: 113 FRAX RISK QUESTIONS: Glucocorticoids (More than 3mos): YES IN 2018, BUT NONE CURRENT (Ex: prednisone, prednisolone, methylprednisolone, dexamethasone, and hydrocortisone). Secondary Osteoporosis: 3. Menopause before 45: YES HYSTERECTOMY AT 23 4. Malnutrition: CROHNS DISEASE Current Tobacco Use: YES RISK FACTORS HISTORY OF: Surgery to Wrist (right/left): RIGHT CARPAL TUNNEL SURGERY When: 1983 Postmenopausal woman: YES Take estrogen and/or progesterone medications: PREMARIN, PT HAS BEEN USING SINCE AGE OF 23 How long: MEDICATIONS: Additional Medications: BLOOD THINNER, CARDIAC MED, BP MED, PROTONIX, ALLERGY MED Additional History: EXAM MEASUREMENTS: Bone mineral densitometry was performed using the [employer] System. Bone mineral density as measured about the Lumbar spine is: ----- L1-L4(G/cm2): 1.171 T Score Values are as follows: ----- L1: -0.7 ----- L2: -0.5 ----- L3: 0.1 ----- L4: 0.3 ----- L1-L4: -0.1 Bone mineral density has: Increased 1.4% since study of: 03-09-2018 Bone mineral density about the R hip (g/cm2): 0.951 Bone mineral density about the L hip (g/cm2): 0.969 T Score values are as follows: -----R Neck: -1.0 -----L Neck: -0.9 -----R Total: -0.4 -----L Total: -0.3 Bone mineral density has: Decreased -1.9% since study of: 03-09-2018 FRAX%s: The graph provided illustrates a 11.5% chance for a major osteoporotic fx and a 1.9% chance f or the hips probability for fx in 10 years time. IMPRESSION: Normal (Values between +1 and -1 indicate normal bone mass). Consider repeating this study in 5 year s or sooner if there is some new clinical indication. NOTE: T-SCORE=SD OF THE YOUNG ADULT MEAN.
--- NOTE | 2022-03-19 17:51 | MM ---
Reason for Exam: Screening (asymptomatic). Last mammogram was performed 2 year(s) and 0 month(s) ago. Patient History: Menarche at age 11. First Full-Term at age 15. Left ovary removed at age 22. Right ovary removed at age 22. Hysterectomy at age 22. Postmenopausal. Currently using Estrogen, beginning at age 22 for 33 years, 3 months. Currently using Unspecified Hormone, starting at age 65. 10/2005, Excisional Biopsy on the Right side. Maternal cousin had breast cancer, age 51. Maternal cousin had breast cancer under age 50. Maternal aunt had breast cancer, age 70. Maternal cousin had breast cancer, age 45. Risk Values: Jody 5 year model risk: 1.6%. NCI Lifetime model risk: 5.7%. Prior Study Comparison: 10/19/2016 Bilateral Diagnostic Mammogram, [facility]. 03/09/2018 Bilateral Screening Mammogram, [facility]. 03/11/2020 Bilateral Screening Mammogram, [facility]. Tissue Density: The breast tissue is heterogeneously dense. This may lower the sensitivity of mammography. Findings: Analyzed By CAD. There is no suspicious group of microcalcifications or new suspicious mass in either breast. Overall Assessment: Negative, BI-RAD 1 Management: Screening Mammogram of both breasts in 1 year. A clinical breast exam by your physician is recommended on an annual basis and results should be correlated with mammographic findings. Electronically signed and approved by: Nehemiah Keenan DO
== END | disposition home or self-care (01) ==
LOC: RADMAMWWP 07:58
PROVIDERS: ATTEND Family Medicine
DX: Z12.31 Encounter for screening mammogram for malignant neoplasm of breast (principal); M85.851 Other specified disorders of bone density and structure, right thigh; Z78.0 Asymptomatic menopausal state; Z80.3 Family history of malignant neoplasm of breast; Z98.890 Other specified postprocedural states
CPT/HCPCS: 77067; 77080

== ENCOUNTER 2023-08-22 13:46 | Inpatient (IN) | payer MEDICARE ==
[2023-08-22] MEDS: ASPIRIN 81 MG PO STA (14:18)
[2023-08-22] MEDS: MAG HYDROX/AL HYDROX/SIMETH 30 ML, HYOSCYAMINE ELIXIR 10 ML, LIDOCAINE VISCOUS 2% 10 ML PO STA ×2 (14:18→17:07)
--- NOTE | 2023-08-22 14:18 | ED ---
General Adult HPI - General Chief complaint: Abdominal Pain Stated complaint: Chest discomfort-burning feeling Time Seen by Provider: 08/22/23 13:57 Source: patient, family, RN notes reviewed, old records reviewed Mode of arrival: ambulatory Limitations: no limitations - History of Present Illness Initial comments: Patient is a 67-year-old female who presents emergency department complaining of heartburn-like chest pain. States that she is having a burning sensation in her epigastric region. Occasionally will radiate to her left arm. States this is a chronic finding on and off for the last 2 years but it has been worse over the last 2 days. Comes and goes but never fully goes away. After not improving on her normal antiacid medications at home she presents for further evaluation at this time. States he has a history of CAD but no stents. Endorses COPD history as well. Denies any shortness of breath or cough. Denies any fevers. Presents for further evaluation. - Related Data Home Medications Medication Instructions Recorded Confirmed Estrogens, Conjugated [Premarin] 1.25 mg PO HS 09/28/16 01/10/22 Levocetirizine Dihydrochloride 5 mg PO HS 09/28/16 01/10/22 [Xyzal] Pantoprazole Sodium 40 mg PO DAILY 09/28/16 01/10/22 Albuterol Inhaler [Ventolin Hfa 2 puff INHALATION RT-Q6H PRN 08/31/18 01/10/22 Inhaler] Atorvastatin [Lipitor] 40 mg PO HS 08/31/18 01/10/22 HYDROcodone/APAP 7.5-325MG [[place] 1 tab PO Q8H PRN 01/10/22 01/10/22 7.5-325] Losartan Potassium 100 mg PO DAILY 01/10/22 01/10/22 cloNIDine HCL [Catapres] 0.05 mg PO BID 01/10/22 01/10/22 Previous Rx's Medication Instructions Recorded Aspirin 81 mg PO DAILY tab 01/12/22 Clopidogrel [Plavix] 75 mg PO DAILY #30 tab 01/12/22 Isosorbide Mononitrate ER [Imdur] 30 mg PO DAILY #30 tab 01/12/22 carvediloL [Coreg] 3.125 mg PO BID-W/MEALS #60 tab 01/12/22 Allergies Allergy/AdvReac Type Severity Reaction Status Date / Time No Known Allergies Allergy Verified 08/22/23 15:56 Review of Systems ROS Statement: Those systems with pertinent positive or pertinent negative responses have been documented in the HPI. Review of Systems: CONST: Denies fever EYES: Denies blurry vision ENT: Denies nasal congestion C/V: Endorses midline chest pain RESP: Denies shortness of breath GI: Endorses epigastric abdominal pain : Denies dysuria SKIN: Denies rash. MSK: Denies joint pain. NEURO: Denies headache ROS Other: All systems not noted in ROS Statement are negative. Past Medical History Past Medical History: Coronary Artery Disease (CAD), Chest Pain / Angina, COPD, GERD/Reflux, Hyperlipidemia, Myocardial Infarction (SC), Osteoarthritis (OA) Additional Past Medical History / Comment(s): hx migraines, hiatal hernia ,crohns, diverticulits, environmental allergies, states she has aortitis., cysts on kidney, gall stones, nausea and gall bladder pain. Last Myocardial Infarction Date:: 08/2004 History of Any Multi-Drug Resistant Organisms: None Reported Past Surgical History: Appendectomy, Cholecystectomy, Heart Catheterization, Hernia Repair, Hysterectomy Additional Past Surgical History / Comment(s): oophorectomy, bowel obstruction surgery/adhesions x 2, laparoscopy, colonscopy, rt wrist capal tunnel Past Anesthesia/Blood Transfusion Reactions: No Reported Reaction, Blood Transfusion Reaction Additional Past Anesthesia/Blood Transfusion Reaction / Comment(s): high fever with blood transfusion Past Psychological History: No Psychological Hx Reported Smoking Status: Current every day smoker Past Alcohol Use History: None Reported Past Drug Use History: None Reported - Past Family History Father Family Medical History: Cancer Additional Family Medical History / Comment(s): kidney cancer Sister(s) Family Medical History: Cancer Additional Family Medical History / Comment(s): throat cancer General Exam - General Exam Comments Initial Comments: General: Appears in no acute distress. HEAD: Normal with no signs of head trauma. EYES: PERRLA, EOMI, conjunctiva normal, no discharge. ENT: Hearing grossly intact, normal oropharynx. RESPIRATORY: Clear breath sounds bilaterally. No wheezes, rales, or rhonchi. C/V: Regular rate and rhythm. S1 and S2 auscultated, no edema, peripheral pulses 2+ and intact throughout. Chest pain is not reproducible on palpation. ABD: Abd is soft, nondistended. Mild epigastric discomfort palpation. No guarding. No rebound tenderness. No peritoneal signs. EXT: Normal range of motion, no obvious deformity SKIN: No rashes or lesions observed on exposed skin. NEURO: Alert and oriented x 4. Limitations: no limitations Course Vital Signs 08/22/23 08/22/23 08/22/23 13:54 14:47 15:22 Temperature 97.7 F Pulse Rate 65 56 L 61 Respiratory 18 18 Rate Blood Pressure 151/62 181/65 173/68 O2 Sat by Pulse 100 97 Oximetry Medical Decision Making - Medical Decision Making Was pt. sent in by a medical professional or institution (, PA, CALL CENTER SUPERVISOR, urgent c are, hospital, or fdc...) When possible be specific @ -No Did you speak to anyone other than the patient for history (EMS, parent, family, police, friend...)? What history was obtained from this source @ -No Did you review nursing and triage notes (agree or disagree)? Why? @ -I reviewed and agree with nursing and triage notes Were old charts reviewed (outside hosp., previous admission, EMS record, old EKG, old radiological studies, urgent care reports/EKG's, fdc records)? Report findings @ -Old charts reviewed Differential Diagnosis (chest pain, altered mental status, abdominal pain women, abdominal pain men, vaginal bleeding, weakness, fever, dyspnea, syncope, head ache, dizziness, GI bleed, back pain, seizure, CVA, palpatations, mental health, musculoskeletal)? @ -Differential Chest Pain: Stable Angina, Unstable Angina, STEMI, NSTEMI Aortic Dissection, Pneumothorax, Musculoskeletal, Esophageal Spasm GERD, Cholecystitis, Pancreatitis, Zoster, this is not meant to be an all-inclusive list. EKG interpreted by me (3pts min.). @ -As above X-rays interpreted by me (1pt min.). @ -Chest x-ray reveals no obvious acute cardiopulmonary process. CT interpreted by me (1pt min.). @ -None done U/S interpreted by me (1pt. min.). @ -None done What testing was considered but not performed or refused? (CT, X-rays, U/S, labs)? Why? @ -None What meds were considered but not given or refused? Why? @ -None Did you discuss the management of the patient with other professionals (professionals i.e. , PA, CALL CENTER SUPERVISOR, lab, RT, psych nurse, social work associate, pain coordinator, teacher, chief medical officer, community case manager)? Give summary @ - I spoke with the admitting physician, Dr. Guerra of [facility] who accepted the admission. Was smoking cessation discussed for >3mins.? @ -No Was critical care preformed (if so, how long)? @ -yes, 35 minutes Were there social determinants of health that impacted care today? How? (Homelessness, low income, unemployed, alcoholism, drug addiction, transporta tion, low edu. Level, literacy, decrease access to med. care, fci, rehab)? @ -No Was there de-escalation of care discussed even if they declined (Discuss DNR or withdrawal of care, Hospice)? DNR status @ -No What co-morbidities impacted this encounter? (DM, HTN, Smoking, COPD, CAD, Cancer, CVA, ARF, Chemo, Hep., AIDS, mental health diagnosis, sleep apnea, morbid obesity)? @ -GERD, CAD Was patient admitted / discharged? Hospital course, mention meds given and route, prescriptions, significant lab abnormalities, going to OR and other pertinent info. @ -Based on the patient's presentation and physical exam, presents emergency department complaining of acute on chronic burning chest pain. Vital signs are within acceptable limits. We will obtain cardiopulmonary workup. Patient will be given aspirin as well as GI cocktail and IV Protonix and 1 L fluid bolus. Patient was in agreement this plan. EKG shows no signs of acute ischemia.Following administration of GI cocktail, patient states significant improvement in pain. Is now a 1-2 out of 10.Patient's EKGs revealed no obvious ST segment abnormality but T wave flattening/inversions in the inferior lateral distribution. Patient's troponin is elevated to 0.122. Remainder the patient's labs unremarkable. I discussed results with the patient. Patient still states pain is well- controlled at this time, to a 1 or 2 at most. She states she feels significantly improved. We discussed her workup. She will be admitted for a non-STEMI. She will be placed on a heparin drip. She already received aspirin. She will be given Nitropaste. Once again, this is 2 days of symptoms she has been experiencing, and we will continue to trend the troponin and have cardiology evaluate her. She was in agreement this plan. Cardiology consulted. Echo ordered. Heparin initiated. I spoke with the admitting physician, Dr. Guerra of [facility] who accepted the admission. Undiagnosed new problem with uncertain prognosis? @ -No Drug Therapy requiring intensive monitoring for toxicity (Heparin, Nitro, Insulin, Cardizem)? @ -heparin Were any procedures done? @ -No Diagnosis/symptom? @ -NSTEMI Acute, or Chronic, or Acute on Chronic? @ -Acute Uncomplicated (without systemic symptoms) or Complicated (systemic symptoms)? @ -Complicated Side effects of treatment? @ -None Exacerbation, Progression, or Severe Exacerbation] @ -No Poses a threat to life or bodily function? @ -Yes Diagnosis/symptom? @ -GERD Acute, or Chronic, or Acute on Chronic? @ -Acute on chronic Uncomplicated (without systemic symptoms) or Complicated (systemic symptoms)? @ -Complicated Side effects of treatment? @ -None Exacerbation, Progression, or Severe Exacerbation] @ -No Poses a threat to life or bodily function? @ -No - Lab Data Result diagrams: 08/22/23 14:13 08/22/23 14:13 Lab Results 08/22/23 08/22/23 08/22/23 Range/Units 14:13 14:13 14:13 WBC 7.2 (3.8-10.6) k/uL RBC 4.85 (3.80-5.40) m/uL Hgb 15.2 (11.4-16.0) gm/dL Hct 44.4 (34.0-46.0) % MCV 91.6 (80.0-100.0) fL MCH 31.4 (25.0-35.0) pg MCHC 34.3 (31.0-37.0) g/dL RDW 12.3 (11.5-15.5) % Plt Count 150 (150-450) k/uL MPV 9.6 Neutrophils % 57 % Lymphocytes % 31 % Monocytes % 5 % Eosinophils % 4 % Basophils % 1 % Neutrophils # 4.1 (1.3-7.7) k/uL Lymphocytes # 2.3 (1.0-4.8) k/uL Monocytes # 0.4 (0-1.0) k/uL Eosinophils # 0.3 (0-0.7) k/uL Basophils # 0.1 (0-0.2) k/uL PT 10.0 (10.0-12.5) sec INR 0.9 (<1.2) APTT 23.6 (22.0-30.0) sec Sodium (137-145) mmol/L Potassium (3.5-5.1) mmol/L Chloride (98-107) mmol/L Carbon Dioxide (22-30) mmol/L Anion Gap mmol/L BUN (7-17) mg/dL Creatinine (0.52-1.04) mg/dL Est GFR (CKD-EPI)AfAm (>60 ml/min/1.73 sqM) Est GFR (CKD-EPI)NonAf (>60 ml/min/1.73 sqM) Glucose (74-99) mg/dL Calcium (8.4-10.2) mg/dL Magnesium (1.6-2.3) mg/dL Total Bilirubin (0.2-1.3) mg/dL AST (14-36) U/L ALT (4-34) U/L Alkaline Phosphatase (38-126) U/L Troponin I (0.000-0.034) ng/mL Total Protein (6.3-8.2) g/dL Albumin (3.5-5.0) g/dL Amylase (30-110) U/L Lipase (23-300) U/L Urine Color Colorless Urine Appearance Clear (Clear) Urine pH 6.5 (5.0-8.0) Ur Specific [place] 1.007 (1.001-1.035) Urine Protein Negative (Negative) Urine Glucose (UA) Negative (Negative) Urine Ketones Negative (Negative) Urine Blood Negative (Negative) Urine Nitrite Negative (Negative) Urine Bilirubin Negative (Negative) Urine Urobilinogen <2.0 (<2.0) mg/dL Ur Leukocyte Esterase Small H (Negative) Urine RBC 1 (0-5) /hpf Urine WBC 2 (0-5) /hpf Ur Squamous Epith Cells 3 (0-4) /hpf Urine Bacteria Occasional H (None) /hpf 08/22/23 08/22/23 Range/Units 14:13 14:13 WBC (3.8-10.6) k/uL RBC (3.80-5.40) m/uL Hgb (11.4-16.0) gm/dL Hct (34.0-46.0) % MCV (80.0-100.0) fL MCH (25.0-35.0) pg MCHC (31.0-37.0) g/dL RDW (11.5-15.5) % Plt Count (150-450) k/uL MPV Neutrophils % % Lymphocytes % % Monocytes % % Eosinophils % % Basophils % % Neutrophils # (1.3-7.7) k/uL Lymphocytes # (1.0-4.8) k/uL Monocytes # (0-1.0) k/uL Eosinophils # (0-0.7) k/uL Basophils # (0-0.2) k/uL PT (10.0-12.5) sec INR (<1.2) APTT (22.0-30.0) sec Sodium 138 (137-145) mmol/L Potassium 4.4 (3.5-5.1) mmol/L Chloride 107 (98-107) mmol/L Carbon Dioxide 23 (22-30) mmol/L Anion Gap 8 mmol/L BUN 15 (7-17) mg/dL Creatinine 0.69 (0.52-1.04) mg/dL Est GFR (CKD-EPI)AfAm >90 (>60 ml/min/1.73 sqM) Est GFR (CKD-EPI)NonAf >90 (>60 ml/min/1.73 sqM) Glucose 79 (74-99) mg/dL Calcium 9.4 (8.4-10.2) mg/dL Magnesium 1.9 (1.6-2.3) mg/dL Total Bilirubin 0.7 (0.2-1.3) mg/dL AST 28 (14-36) U/L ALT 8 (4-34) U/L Alkaline Phosphatase 56 (38-126) U/L Troponin I 0.122 H* (0.000-0.034) ng/mL Total Protein 7.4 (6.3-8.2) g/dL Albumin 4.2 (3.5-5.0) g/dL Amylase 68 (30-110) U/L Lipase 147 (23-300) U/L Urine Color Urine Appearance (Clear) Urine pH (5.0-8.0) Ur Specific [place] (1.001-1.035) Urine Protein (Negative) Urine Glucose (UA) (Negative) Urine Ketones (Negative) Urine Blood (Negative) Urine Nitrite (Negative) Urine Bilirubin (Negative) Urine Urobilinogen (<2.0) mg/dL Ur Leukocyte Esterase (Negative) Urine RBC (0-5) /hpf Urine WBC (0-5) /hpf Ur Squamous Epith Cells (0-4) /hpf Urine Bacteria (None) /hpf - EKG Data -: EKG Interpreted by Me EKG Comments: 12-lead Electrocardiogram Interpretation Note EKG was reviewed and interpreted by myself. 12-lead ECG performed at 1410 is interpreted by me as revealing normal sinus rhythm at a rate of 60 beats per minute. [place] is normal. CT interval is 176 ms, QRS duration is 101 ms, QTc is 431 ms. T wave flattening in the precordial leads, especially laterally with possible slight inversion. Also T wave flattening in the inferior leads. R wave progression across the precordium was satisfactory. 12-lead Electrocardiogram Interpretation Note EKG was reviewed and interpreted by myself. 12-lead ECG performed at 1529 is interpreted by me as revealing sinus bradycardia at a rate of 53 beats per minute. [place] is normal. CT interval is 173 ms, QRS duration is 96 ms, QTc is 455 ms.. T wave inversions in the lateral most precordial leads as well as in III and aVF. T wave flattening in prior EKG. We will continue to monitor.. R wave progression across the precordium was satisfactory. Critical Care Time Critical Care Time: Yes Total Critical Care Time: 35 Disposition Clinical Impression: NSTEMI (non-ST elevated myocardial infarction), GERD (gastroesophageal reflux disease) Disposition: ADMITTED IP TO THIS [facility] Condition: Stable Referrals: Olinda Eric DO [Primary Care Provider] - 1-2 days Time of Disposition: 15:37
[2023-08-22] MEDS: SODIUM CHLORIDE 0.9% 1,000 ML IV STA (14:32)
[2023-08-22 14:45] LABS: Basophils # (A) 0.1 k/uL (0-0.2); Basophils % (A) 1 %; Eosinophils # (A) 0.3 k/uL (0-0.7); Eosinophils % (A) 4 %; HCT 44.4 % (34.0-46.0); HGB 15.2 gm/dL (11.4-16.0); Lymphocytes # (A) 2.3 k/uL (1.0-4.8); Lymphocytes % (A) 31 %; MCH 31.4 pg (25.0-35.0); MCHC 34.3 g/dL (31.0-37.0); MCV 91.6 fL (80.0-100.0); Mean Platelet Volume 9.6; Monocytes # (A) 0.4 k/uL (0-1.0); Monocytes % (A) 5 %; Neutrophils # (A) 4.1 k/uL (1.3-7.7); Neutrophils % (A) 57 %; Platelet Count 150 k/uL (150-450); RBC 4.85 m/uL (3.80-5.40); RDW 12.3 % (11.5-15.5); WBC 7.2 k/uL (3.8-10.6)
--- NOTE | 2023-08-22 14:45 | XR ---
EXAMINATION TYPE: XR chest 2V DATE OF EXAM: 08/22/2023 COMPARISON: 01/10/2022 HISTORY: 67-year-old female with chest pain TECHNIQUE: PA and lateral views FINDINGS: Heart normal size. Aorta and pulmonary vasculature within normal limits. Epicardial fat pad at the ca rdiac apex. No consolidation or pleural effusion. IMPRESSION: No acute cardiopulmonary process.
[2023-08-22 14:47] LABS: Appearance,Urine Clear (Clear); Bacteria,Urine Occasional /hpf; Bilirubin,Urine Negative (Negative); Blood,Urine Negative (Negative); Color,Urine Colorless; Glucose,Urine (UA) Negative (Negative); Ketones,Urine Negative (Negative); Leukocyte Esterase,Urine Small (Negative); Nitrite,Urine Negative (Negative); PH, Urine 6.5 (5.0-8.0); Protein,Urine Negative (Negative); RBC,Urine 1 /hpf (0-5); Specific Gravity,Urine 1.007 (1.001-1.035); Squamous Epithelial Cell,Urine 3 /hpf (0-4); Urobilinogen,Urine <2.0 mg/dL (<2.0); WBC,Urine 2 /hpf (0-5)
[2023-08-22] MEDS: PANTOPRAZOLE 40 MG/10 ML VIAL IVP STA (14:49)
[2023-08-22 14:55] LABS: INR 0.9 (<1.2); Partial Thromboplastin Time 23.6 sec (22.0-30.0)
[2023-08-22 15:00] LABS: ALT 8 U/L (4-34); African American GFR (CKD) >90 (>60 ml/min/1.73 sqM); Amylase 68 U/L (30-110); Anion Gap 8 mmol/L; Blood Urea Nitrogen 15 mg/dL (7-17); Calcium 9.4 mg/dL (8.4-10.2); Carbon Dioxide 23 mmol/L (22-30); Chloride 107 mmol/L (98-107); Glucose 79 mg/dL (74-99); Lipase 147 U/L (23-300); Non-African American GFR(CKD) >90 (>60 ml/min/1.73 sqM); Potassium 4.4 mmol/L (3.5-5.1); Sodium 138 mmol/L (137-145); Total Bilirubin 0.7 mg/dL (0.2-1.3)
[2023-08-22 15:03] LABS: AST 28 U/L (14-36); Albumin 4.2 g/dL (3.5-5.0); Alkaline Phosphatase 56 U/L (38-126); Magnesium 1.9 mg/dL (1.6-2.3); Total Protein 7.4 g/dL (6.3-8.2)
[2023-08-22] MEDS ORDERED: HEPARIN SODIUM 1,000 UN/ML (10ML VL) IV PRN (15:21)
[2023-08-22] MEDS: NITROGLYCERIN OINT 1 INCH/GM PACKET TOPICAL SCH (15:26)
[2023-08-22] MEDS ORDERED: NALOXONE 0.4 MG/ML 1 ML VIAL IV PRN (15:41)
[2023-08-22] MEDS ORDERED: ALBUTEROL NEBULIZED 2.5 MG/3 ML INHALATION PRN (16:03)
[2023-08-22] MEDS: HEPARIN SODIUM 1,000 UN/ML (10ML VL) IV ONE (16:20)
[2023-08-22] MEDS: HEPARIN SOD,PORK IN 0.45% NACL 25,000 UNIT in 0.45% NACL 1 250ML.BAG IV SCH (16:21)
[2023-08-22] MEDS: carvediloL 3.125 MG TAB PO SCH (19:55)
[2023-08-22] MEDS: ISOSORBIDE MONONITRATE ER 30 MG TAB.ER.24H PO SCH (21:28)
[2023-08-22] MEDS: cloNIDine HCL 0.1 MG TAB PO SCH (21:28)
[2023-08-22] MEDS: ATORVASTATIN 40 MG TAB PO SCH (21:28)
[2023-08-22] MEDS: LORATADINE 10 MG TAB PO SCH (21:28)
[2023-08-22] MEDS: METOPROLOL TARTRATE 25 MG TAB PO SCH (23:48)
[2023-08-23] MEDS ORDERED: HEPARIN SODIUM,PORCINE 10,000 UNIT in SODIUM CHLORIDE 0.9% 1,000 ML IRRIGATION PRN (07:00)
[2023-08-23] MEDS ORDERED: HEPARIN SODIUM,PORCINE (1 ML) 2,500 UNIT in SODIUM CHLORIDE 0.9% 250 ML IRRIGATION PRN (07:00)
--- NOTE | 2023-08-23 07:25 | CA ---
Transthoracic Echo Report Name: Virginia Gayle Age: 67 Gender: F : 1955 Exam Date: 08/22/2023 17:43 Exam Location: [place] [facility] Ht (in): 64 Wt (lb): 115 Ordering Physician: Jeffrey Garrido MD Attending/Referring Phys: Turn Down Man Briseyda Recio RDCS Procedure CPT: Indications: nstemi Cardiac Hx: Technical Quality: Fair Contrast 1: Definity Total Dose (mL): 2 Contrast 2: Total Dose (mL): MEASUREMENTS (Male / Female) Normal Values 2D ECHO LV Diastolic Diameter PLAX 4.2 cm 4.2 - 5.9 / 3.9 - 5.3 cm LV Systolic Diameter PLAX 2.3 cm IVS Diastolic Thickness 1.4 cm 0.6 - 1.0 / 0.6 - 0.9 cm LVPW Diastolic Thickness 1.4 cm 0.6 - 1.0 / 0.6 - 0.9 cm LV Relative Wall Thickness 0.7 RV Internal Dim ED PLAX 3.2 cm LV Diastolic Volume MOD BP 86.9 cm??? 67 - 155 / 56 - 104 cm??? LV Systolic Volume MOD BP 33.8 cm??? 22 - 58 / 19 - 49 cm??? LV Ejection Fraction MOD BP 61.1 % >= 55 % LV Cardiac Index MOD BP 2081.0 cm???/min???m??? LV Diastolic Volume MOD 4C 90.4 cm??? LV Systolic Volume MOD 4C 33.0 cm??? LV Ejection Fraction MOD 4C 63.5 % LV Cardiac Index MOD 4C 2248.3 cm???/min???m??? LV Diastolic Length 4C 7.3 cm LV Systolic Length 4C 6.7 cm LV Diastolic Volume MOD 2C 83.8 cm??? LV Systolic Volume MOD 2C 34.8 cm??? LV Ejection Fraction MOD 2C 58.5 % LV Cardiac Index MOD 2C 1922.2 cm???/min???m??? LV Diastolic Length 2C 7.3 cm LV Systolic Length 2C 6.8 cm LA Volume 54.1 cm??? 18 - 58 / 22 - 52 cm??? LA Volume Index 35.3 cm???/m??? 16 - 28 cm???/m??? M-MODE Aortic Root Diameter MM 2.7 cm LA Systolic Diameter MM 3.9 cm LA Ao Ratio MM 1.5 AV Cusp Separation MM 1.6 cm DOPPLER AV Peak Velocity 121.8 cm/s AV Peak Gradient 5.9 mmHg AV Mean Velocity 81.1 cm/s AV Mean Gradient 3.0 mmHg AV Velocity Time Integral 28.1 cm LVOT Peak Velocity 91.2 cm/s LVOT Peak Gradient 3.3 mmHg LVOT Velocity Time Integral 24.3 cm MV Area PHT 2.7 cm??? Mitral E Point Velocity 69.2 cm/s Mitral A Point Velocity 88.5 cm/s Mitral E to A Ratio 0.8 MV Deceleration Time 282.8 ms MV E' Velocity 5.1 cm/s Mitral E to MV E' Ratio 13.5 TR Peak Velocity 279.5 cm/s TR Peak Gradient 31.2 mmHg Right Ventricular Systolic Press 34.4 mmHg FINDINGS Left Ventricle Moderately increased left ventricular wall thickness. Left ventricular cavity size normal. Anteroapical and anteroseptal severe hypokinesis. Reduced left ventricular systolic function. Left ventricular ejection fraction is estimated at 40-45 %. Right Ventricle Normal right ventricular size and function. Right ventricular systolic pressure within normal limits. Right Atrium Normal right atrial size. Left Atrium Mildly increased left atrial volume. Mitral Valve Structurally normal mitral valve. Mild mitral annular calcification. Moderate mitral regurgitation. Aortic Valve Trileaflet aortic valve. No aortic valve stenosis or regurgitation. Aortic valve sclerosis. Tricuspid Valve Structurally normal tricuspid valve. Mild tricuspid regurgitation. Pulmonic Valve Structurally normal pulmonic valve. Pericardium No pericardial effusion. Aorta Normal size aortic root and proximal ascending aorta. CONCLUSIONS 1. Mildly to moderately impaired left ventricular systolic function with segmental wall motion abnormality 2. Moderate mitral with mild tricuspid regurgitation Previewed by: Dr. Hector Monique MD (Electronically Signed) Final Date: 23 August 2023 07:25
[2023-08-23] MEDS ORDERED: ALPRAZolam 0.5 MG TAB PO PRN (08:17)
[2023-08-23] MEDS ORDERED: ALPRAZolam 0.25 MG TAB PO PRN (08:17)
[2023-08-23] MEDS ORDERED: NITROGLYCERIN SL TABS 0.4 MG TAB SUBLINGUAL PRN (08:17)
[2023-08-23] MEDS: LOSARTAN 50 MG TAB PO SCH (09:00)
[2023-08-23] MEDS: ASPIRIN 325 MG TAB PO STA (09:00)
[2023-08-23] MEDS ORDERED: PANTOPRAZOLE 40 MG TABLET PO SCH (09:00)
[2023-08-23] MEDS: ATORVASTATIN 80 MG TAB PO STA (09:01)
[2023-08-23] MEDS: CLOPIDOGREL 75 MG TAB PO SCH (09:01)
[2023-08-23] MEDS: PANTOPRAZOLE 40 MG/10 ML VIAL IV SCH (09:02)
--- NOTE | 2023-08-23 10:29 | P.CRDCN ---
History of Present Illness History of present illness: HISTORY OF PRESENT ILLNESS: This is a 67-year-old female with a past medical history significant for mitral regurgitation, Takotsubo cardiomyopathy, nonobstructive CAD, hypertension, hype rlipidemia, Crohn's disease, GERD, and nicotine dependence. Patient follows in the office with Dr. Torres. We have been asked to see the patient in consultation for elevated troponins. Patient examined at the bedside. Patient states she has been having heartburn type symptoms for the past year. However she states over the past 2 days she has had 2 episodes that were significantly worse. She stat es the first time occurred when she was cooking and the second time occurred yesterday while she was sitting in the chair. She states that she fell asleep and was awoken by chest discomfort. She denies any chest pain or pressure at the time of examination. Denies any shortness of breath. Patient was found to have elevated troponins and was started on IV heparin. Vital signs are stable. DIAGNOSTICS: - EKG reveals sinus mechanism with nonspecific ST-T wave changes. - Chest xray negative for acute process. - Laboratory data: WBC 7.2. Hemoglobin 15.2. Platelet count 150. Sodium 138. Potassium 4.4. BUN 15. Creatinine 0.69. Magnesium 1.9. Troponin 0.122. 0.521. 1.430. - Current home cardiac medications include Catapres 0.1 mg twice a day, carvedilol 3.125 mg twice a day, losartan 100 mg daily, Imdur 30 mg at night, Plavix 75 mg daily, Lipitor 40 mg at night, aspirin 81 mg daily. - Echocardiogram completed revealing ejection fraction 40 to 45%, anterior apical and anterior septal severe hypokinesia, moderate MR, mild TR - Cardiac catheterization history: January 2022 revealing normal filling pressures. No gradient. 45% ejection fraction. Mid anterior hypokinesia. Ostial LAD 55%, mid LAD 40%, first and second diagonal has 90 and 70% small caliber vessels, 1.5 cm circumflex and minute RCA with no significant disease REVIEW OF SYSTEMS: At the time of my exam: CONSTITUTIONAL: Denies fever or chills. HEENT: Denies blurred vision, vision changes, or eye pain. Denies hemoptysis CARDIOVASCULAR: Denies chest pain. Denies orthopnea. Denies PND. Denies palpitations RESPIRATORY: Denies shortness of breath. GASTROINTESTINAL: Denies abdominal pain. Denies nausea or vomiting. HEMATOLOGIC: Denies bleeding disorders. GENITOURINARY: Denies any blood in urine. SKIN: Denies pruitis. Denies rash. PHYSICAL EXAM: VITAL SIGNS: Reviewed. GENERAL: Well-developed in no acute distress. HEENT: Head is normocephalic. Pupils are equal, round. Sclerae anicteric. Mucous membranes of the mouth are moist. Neck supple. No JVD or thyromegaly LUNGS: Respirations even and unlabored. Lungs essentially clear to auscultation bilaterally. HEART: Regular rate and rhythm. S1 and S2 heard. ABDOMEN: Soft. Nondistended. Nontender. EXTREMITIES: Normal range of motion. No clubbing or cyanosis. Peripheral pulses intact. No lower extremity edema NEUROLOGIC: Awake and alert. Oriented x 3. ASSESSMENT: Non-STEMI Nonobstructive CAD History of Takotsubo cardiomyopathy Moderate mitral regurgitation Hypertension Hyperlipidemia Crohn's disease GERD Nicotine dependence PLAN: Continue current cardiac medications Continue IV heparin Patient to undergo cardiac catheterization today with Dr. Torres Further recommendations pending patient course Nurse practitioner note has been reviewed by physician. Signing provider agrees with the documented findings, assessment, and plan of care documented by URANIUM PROCESSING SUPERVISOR as a scribe. Past Medical History Past Medical History: Coronary Artery Disease (CAD), Chest Pain / Angina, COPD, GERD/Reflux, Hyperlipidemia, Myocardial Infarction ([place]), Osteoarthritis (OA) Additional Past Medical History / Comment(s): hx migraines, hiatal hernia ,crohns, diverticulits, environmental allergies, states she has aortitis., cysts on kidney, gall stones, nausea and gall bladder pain. Last Myocardial Infarction Date:: 08/2004 History of Any Multi-Drug Resistant Organisms: None Reported Past Surgical History: Appendectomy, Cholecystectomy, Heart Catheterization, Hernia Repair, Hysterectomy Additional Past Surgical History / Comment(s): oophorectomy, bowel obstruction surgery/adhesions x 2, laparoscopy, colonscopy, rt wrist capal tunnel Past Anesthesia/Blood Transfusion Reactions: No Reported Reaction, Blood Transfusion Reaction Additional Past Anesthesia/Blood Transfusion Reaction / Comment(s): high fever with blood transfusion Past Psychological History: No Psychological Hx Reported Smoking Status: Current every day smoker Past Alcohol Use History: None Reported Past Drug Use History: None Reported - Past Family History Father Family Medical History: Cancer Additional Family Medical History / Comment(s): kidney cancer Sister(s) Family Medical History: Cancer Additional Family Medical History / Comment(s): throat cancer Medications and Allergies Home Medications Medication Instructions Recorded Confirmed Type Estrogens, Conjugated [Premarin] 1.25 mg PO HS 09/28/16 08/22/23 History Levocetirizine Dihydrochloride 5 mg PO HS 09/28/16 08/22/23 History [Xyzal] Pantoprazole Sodium 40 mg PO DAILY 09/28/16 08/22/23 History Albuterol Inhaler [Ventolin Hfa 2 puff INHALATION RT-Q6H PRN 08/31/18 08/22/23 History Inhaler] Atorvastatin [Lipitor] 40 mg PO HS 08/31/18 08/22/23 History Losartan Potassium 100 mg PO DAILY 01/10/22 08/22/23 History cloNIDine HCL [Catapres] 0.1 mg PO BID 01/10/22 08/22/23 History Clopidogrel [Plavix] 75 mg PO DAILY #30 tab 01/12/22 08/22/23 Rx Aspirin EC [Ecotrin Low Dose] 81 mg PO DAILY 08/22/23 08/22/23 History Isosorbide Mononitrate ER [Imdur] 30 mg PO HS 08/22/23 08/22/23 History carvediloL [Coreg] 3.125 mg PO BID 08/22/23 08/22/23 History traMADol HCL 50 - 100 mg PO Q6H PRN 08/22/23 08/22/23 History Allergies Allergy/AdvReac Type Severity Reaction Status Date / Time No Known Allergies Allergy Verified 08/22/23 15:56 Physical Exam Vitals: Vital Signs Temp Pulse Pulse Resp BP BP Pulse Ox 08/23/23 08:00 97.6 F 53 L 16 138/59 94 L 08/23/23 06:40 98.6 F 56 L 18 129/59 97 08/23/23 03:00 56 L 16 126/56 96 08/23/23 02:00 54 L 15 128/65 96 08/23/23 01:00 54 L 16 141/61 96 08/23/23 00:00 56 L 18 148/57 97 08/22/23 23:00 60 18 144/53 97 02/19/24 22:00 60 15 156/66 97 08/22/23 21:00 61 16 153/73 98 08/22/23 20:00 78 28 H 144/75 99 08/22/23 19:00 68 38 H 169/87 100 08/22/23 18:49 67 20 169/87 100 08/22/23 18:00 59 L 7 L 161/73 98 08/22/23 17:00 61 27 H 151/58 99 08/22/23 16:07 98.7 F 68 18 155/67 100 08/22/23 16:04 25 H 08/22/23 15:22 61 18 173/68 97 08/22/23 14:47 56 L 181/65 08/22/23 13:54 97.7 F 65 18 151/62 100 Intake and Output 08/22/23 08/23/23 08/23/23 22:59 06:59 14:59 Intake Total 44.863 Balance 44.863 Intake: Intake, IV Titration 44.863 Amount Heparin Sod,Pork in 0.45% 44.863 NaCl 25,000 unit In 0.45 % NaCl 1 250ml.bag @ 12 UNITS/KG/HR 6.26 mls/hr IV .Q24H [facility] Rx#: [id number] Results 08/22/23 14:13 08/22/23 14:13 Cardiac Enzymes 08/22/23 08/22/23 08/22/23 Range/Units 14:13 14:13 17:33 AST 28 (14-36) U/L Troponin I 0.122 H* 0.521 H* (0.000-0.034) ng/mL 08/22/23 Range/Units 21:44 AST (14-36) U/L Troponin I 1.430 H* (0.000-0.034) ng/mL Coagulation 08/22/23 08/22/23 Range/Units 14:13 21:44 PT 10.0 (10.0-12.5) sec APTT 23.6 66.4 H (22.0-30.0) sec CBC 08/22/23 Range/Units 14:13 WBC 7.2 (3.8-10.6) k/uL RBC 4.85 (3.80-5.40) m/uL Hgb 15.2 (11.4-16.0) gm/dL Hct 44.4 (34.0-46.0) % Plt Count 150 (150-450) k/uL Comprehensive Metabolic Panel 08/22/23 Range/Units 14:13 Sodium 138 (137-145) mmol/L Potassium 4.4 (3.5-5.1) mmol/L Chloride 107 (98-107) mmol/L Carbon Dioxide 23 (22-30) mmol/L BUN 15 (7-17) mg/dL Creatinine 0.69 (0.52-1.04) mg/dL Glucose 79 (74-99) mg/dL Calcium 9.4 (8.4-10.2) mg/dL AST 28 (14-36) U/L ALT 8 (4-34) U/L Alkaline Phosphatase 56 (38-126) U/L Total Protein 7.4 (6.3-8.2) g/dL Albumin 4.2 (3.5-5.0) g/dL Current Medications Generic Name Dose Route Start Last Admin Trade Name Freq PRN Reason Stop Dose Admin Albuterol Sulfate 2.5 mg 08/22/23 16:03 Albuterol Nebulized 2.5 Mg/3 Ml INHALATION RT-Q6H PRN Shortness Of Breath Alprazolam 0.25 mg 08/23/23 08:17 Alprazolam 0.25 Mg Tab PO Q6HR PRN Mild Anxiety Alprazolam 0.5 mg 08/23/23 08:17 Alprazolam 0.5 Mg Tab PO Q6HR PRN Moderate Anxiety Aspirin 81 mg 08/24/23 09:00 Aspirin 81 Mg PO DAILY [facility] Atorvastatin Calcium 80 mg 08/23/23 21:00 Atorvastatin 80 Mg Tab PO HS [facility] Carvedilol 3.125 mg 08/22/23 17:30 08/23/23 06:44 Carvedilol 3.125 Mg Tab PO 3.125 mg BID-W/MEALS [facility] Administration Clonidine 0.1 mg 08/22/23 21:00 08/23/23 09:00 Clonidine Hcl 0.1 Mg Tab PO 0.1 mg BID [facility] Administration Clopidogrel Bisulfate 75 mg 08/23/23 09:00 08/23/23 09:01 Clopidogrel 75 Mg Tab PO 75 mg DAILY [facility] Administration Heparin Sodium (Porcine) 0 unit 08/22/23 15:21 Heparin Sodium 1,000 Un/Ml (10ml Vl) IV PER PROTOCOL PRN Low PTT Protocol Hydromorphone HCl 0.5 mg 08/22/23 19:28 Hydromorphone 0.5 Mg/0.5 Ml Syringe IVP Q4HR PRN Pain Heparin Sodium/Sodium Chloride 250 mls @ 6.26 mls/hr 08/22/23 15:30 08/22/23 23:31 25,000 unit/ Sodium Chloride IV 12 units/kg/hr .Q24H [facility] 6.26 mls/hr Titration Protocol 12 UNITS/KG/HR Heparin Sodium (Porcine) 10, 1,001 mls @ 999 mls/hr 08/23/23 07:00 000 unit/ Sodium Chloride IRRIGATION 08/23/23 23:00 ONCE PRN INTRA-OP Heparin Sodium (Porcine) 2,500 250.5 mls @ 250 mls/hr 08/23/23 07:00 unit/ Sodium Chloride IRRIGATION 08/23/23 23:00 ONCE PRN INTRA-OP Sodium Chloride 1,000 ml/ IV 1,000 mls @ 52.163 mls/hr 08/23/23 08:30 Solution IV .[id number] [facility] 1 ML/KG/HR Isosorbide Mononitrate 30 mg 08/22/23 21:00 08/22/23 21:28 Isosorbide Mononitrate Er 30 Mg Tab.Er.24h PO 30 mg HS [facility] Administration Loratadine 10 mg 08/22/23 21:00 08/22/23 21:28 Loratadine 10 Mg Tab PO 10 mg HS [facility] Administration Losartan Potassium 100 mg 08/23/23 09:00 08/23/23 09:00 Losartan 50 Mg Tab PO 100 mg DAILY [facility] Administration Metoprolol Tartrate 25 mg 08/22/23 23:30 08/23/23 09:01 Metoprolol Tartrate 25 Mg Tab PO 25 mg BID [facility] Administration Naloxone HCl 0.2 mg 08/22/23 15:41 Naloxone 0.4 Mg/Ml 1 Ml Vial IV Q2M PRN Opioid Reversal Nitroglycerin 0.5 inch 08/22/23 16:00 08/23/23 09:29 Nitroglycerin Oint 1 Inch/Gm Packet TOPICAL 0.5 inch Q8HR [facility] Administration Nitroglycerin 0.4 mg 08/23/23 08:17 Nitroglycerin Sl Tabs 0.4 Mg Tab SUBLINGUAL Q5M PRN Chest Pain Pantoprazole Sodium 40 mg 08/23/23 09:00 08/23/23 09:02 Pantoprazole 40 Mg/10 Ml Vial IV 40 mg DAILY [facility] Administration Intake and Output 08/22/23 08/23/23 08/23/23 22:59 06:59 14:59 Intake Total 44.863 Balance 44.863 Intake: Intake, IV Titration 44.863 Amount Heparin Sod,Pork in 0.45% 44.863 NaCl 25,000 unit In 0.45 % NaCl 1 250ml.bag @ 12 UNITS/KG/HR 6.26 mls/hr IV .Q24H [facility] Rx#: [id number] 08/22/23 14:13 08/22/23 14:13
[2023-08-23] MEDS: SODIUM CHLORIDE 0.9% 1,000 ML in EMPTY BAG 1 BAG IV SCH (10:57)
--- NOTE | 2023-08-23 11:23 | P.HPIM ---
History of Present Illness Patient is a 67-year-old female came with complaints of increased heartburn that her heartburn is under good been going on for about couple months not improved with Protonix but yesterday her heartburn is much worse. Patient is found to have ST depressions in the inferior leads and patient's troponin was elevated with progressive worsening after 1.6. Patient does have history of coronary artery disease history of cardiomyopathy. Patient had echocardiogram today which showed ejection fraction of 40% with segmental wall motion abnormalities. Chest x-ray did not show any significant abnormality. Patient does have multiple other medical problems with previous history of coronary. Patient does have history of Crohn's disease, aortitis. Patient continues to smoke half a pack of cigarettes a day. Review of systems All other review of systems negative except as mentioned above PHYSICAL EXAMINATION: GENERAL: The patient is alert and oriented x3, not in any acute distress. Well developed, well nourished. HEENT: Pupils are round and equally reacting to light. EOMI. No scleral icterus. No conjunctival pallor. Normocephalic, atraumatic. No pharyngeal erythema. No thyromegaly. CARDIOVASCULAR: S1 and S2 present. No murmurs, rubs, or gallops. PULMONARY: Chest is clear to auscultation, no wheezing or crackles. ABDOMEN: Soft, nontender, nondistended, normoactive bowel sounds. No palpable organomegaly. MUSCULOSKELETAL: No joint swelling or deformity. EXTREMITIES: No cyanosis, clubbing, or pedal edema. NEUROLOGICAL: Gross neurological examination did not reveal any focal deficits. SKIN: No rashes. Assessment and plan Acute on chronic duration myocardial infarction probably involving the RCA territory, continue examination of the patient today -Ischemic eval likely patient is not in acute CHF exacerbation -History of paroxysmal cardiomyopathy -Coronary artery disease nonobstructive in the past -Hypertension -Hyperlipidemia -Crohn's disease -Gastroesophageal disease Problems patient will be resumed on appropriate home medications Past Medical History Past Medical History: Coronary Artery Disease (CAD), Chest Pain / Angina, COPD, GERD/Reflux, Hyperlipidemia, Myocardial Infarction ([place]), Osteoarthritis (OA) Additional Past Medical History / Comment(s): hx migraines, hiatal hernia ,crohns, diverticulits, environmental allergies, states she has aortitis., cysts on kidney, gall stones, nausea and gall bladder pain. Last Myocardial Infarction Date:: 08/2004 History of Any Multi-Drug Resistant Organisms: None Reported Past Surgical History: Appendectomy, Cholecystectomy, Heart Catheterization, Hernia Repair, Hysterectomy Additional Past Surgical History / Comment(s): oophorectomy, bowel obstruction surgery/adhesions x 2, laparoscopy, colonscopy, rt wrist capal tunnel Past Anesthesia/Blood Transfusion Reactions: No Reported Reaction, Blood Transfusion Reaction Additional Past Anesthesia/Blood Transfusion Reaction / Comment(s): high fever with blood transfusion Past Psychological History: No Psychological Hx Reported Smoking Status: Current every day smoker Past Alcohol Use History: None Reported Past Drug Use History: None Reported - Past Family History Father Family Medical History: Cancer Additional Family Medical History / Comment(s): kidney cancer Sister(s) Family Medical History: Cancer Additional Family Medical History / Comment(s): throat cancer Medications and Allergies Home Medications Medication Instructions Recorded Confirmed Type Estrogens, Conjugated [Premarin] 1.25 mg PO HS 09/28/16 08/22/23 History Levocetirizine Dihydrochloride 5 mg PO HS 09/28/16 08/22/23 History [Xyzal] Pantoprazole Sodium 40 mg PO DAILY 09/28/16 08/22/23 History Albuterol Inhaler [Ventolin Hfa 2 puff INHALATION RT-Q6H PRN 08/31/18 08/22/23 History Inhaler] Atorvastatin [Lipitor] 40 mg PO HS 08/31/18 08/22/23 History Losartan Potassium 100 mg PO DAILY 01/10/22 08/22/23 History cloNIDine HCL [Catapres] 0.1 mg PO BID 01/10/22 08/22/23 History Clopidogrel [Plavix] 75 mg PO DAILY #30 tab 01/12/22 08/22/23 Rx Aspirin EC [Ecotrin Low Dose] 81 mg PO DAILY 08/22/23 08/22/23 History Isosorbide Mononitrate ER [Imdur] 30 mg PO HS 08/22/23 08/22/23 History carvediloL [Coreg] 3.125 mg PO BID 08/22/23 08/22/23 History traMADol HCL 50 - 100 mg PO Q6H PRN 08/22/23 08/22/23 History Allergies Allergy/AdvReac Type Severity Reaction Status Date / Time No Known Allergies Allergy Verified 08/22/23 15:56 Physical Exam Vitals: Vital Signs Temp Pulse Pulse Resp BP BP Pulse Ox 08/23/23 08:00 97.6 F 53 L 16 138/59 94 L 08/23/23 06:40 98.6 F 56 L 18 129/59 97 08/23/23 03:00 56 L 16 126/56 96 08/23/23 02:00 54 L 15 128/65 96 08/23/23 01:00 54 L 16 141/61 96 08/23/23 00:00 56 L 18 148/57 97 08/22/23 23:00 60 18 144/53 97 08/22/23 22:00 60 15 156/66 97 08/22/23 21:00 61 16 153/73 98 08/22/23 20:00 78 28 H 144/75 99 08/22/23 19:00 68 38 H 169/87 100 08/22/23 18:49 67 20 169/87 100 08/22/23 18:00 59 L 7 L 161/73 98 08/22/23 17:00 61 27 H 151/58 99 08/22/23 16:07 98.7 F 68 18 155/67 100 08/22/23 16:04 25 H 08/22/23 15:22 61 18 173/68 97 08/22/23 14:47 56 L 181/65 08/22/23 13:54 97.7 F 65 18 151/62 100 Intake and Output 08/22/23 08/23/23 08/23/23 22:59 06:59 14:59 Intake Total 44.863 Balance 44.863 Intake: Intake, IV Titration 44.863 Amount Heparin Sod,Pork in 0.45% 44.863 NaCl 25,000 unit In 0.45 % NaCl 1 250ml.bag @ 12 UNITS/KG/HR 6.26 mls/hr IV .Q24H [facility] Rx#: [id number] Results CBC & Chem 7: 08/22/23 14:13 08/22/23 14:13 Labs: Abnormal Lab Results - Last 24 Hours (Table) 08/22/23 08/22/23 08/22/23 Range/Units 14:13 14:13 17:33 APTT (22.0-30.0) sec Troponin I 0.122 H* 0.521 H* (0.000-0.034) ng/mL Ur Leukocyte Esterase Small H (Negative) Urine Bacteria Occasional H (None) /hpf 08/22/23 08/22/23 Range/Units 21:44 21:44 APTT 66.4 H (22.0-30.0) sec Troponin I 1.430 H* (0.000-0.034) ng/mL Ur Leukocyte Esterase (Negative) Urine Bacteria (None) /hpf
[2023-08-23] MEDS: NITROGLYCERIN SL TABS 0.4 MG TAB SUBLINGUAL ONE (12:20)
[2023-08-23 12:39] LABS: Basophils % (A) 0 %; Eosinophils # (A) 0.2 k/uL (0-0.7); Eosinophils % (A) 2 %; HCT 37.3 % (34.0-46.0); HGB 12.6 gm/dL (11.4-16.0); Lymphocytes # (A) 2.3 k/uL (1.0-4.8); Lymphocytes % (A) 30 %; MCHC 33.6 g/dL (31.0-37.0); Mean Platelet Volume 9.5; Monocytes # (A) 0.3 k/uL (0-1.0); Monocytes % (A) 4 %; Neutrophils # (A) 4.6 k/uL (1.3-7.7); Neutrophils % (A) 61 %; Platelet Count 154 k/uL (150-450); RBC 4.06 m/uL (3.80-5.40); RDW 12.5 % (11.5-15.5); WBC 7.5 k/uL (3.8-10.6)
[2023-08-23] MEDS: IV FLUID CONTINUATION 1,000 ML IV ONE (12:40)
[2023-08-23 12:48] LABS: Prothrombin Time 11.1 sec (10.0-12.5)
[2023-08-23 12:50] LABS: African American GFR (CKD) >90 (>60 ml/min/1.73 sqM); Anion Gap 4 mmol/L; Blood Urea Nitrogen 13 mg/dL (7-17); Calcium 8.3 mg/dL (8.4-10.2); Carbon Dioxide 24 mmol/L (22-30); Chloride 112 mmol/L (98-107); Glucose 84 mg/dL (74-99); Non-African American GFR(CKD) 85 (>60 ml/min/1.73 sqM); Potassium 3.7 mmol/L (3.5-5.1); Sodium 140 mmol/L (137-145)
[2023-08-23] MEDS: MIDAZOLAM 2 MG/2 ML VIAL IVP ONE (12:59)
[2023-08-23] MEDS: LIDOCAINE 1% INJ 10MG/ML (30 ML VIAL-PF) SQ ONE ×2 (13:05→13:14)
[2023-08-23] MEDS ORDERED: NITROGLYCERIN SL TABS 0.4 MG TAB SUBLINGUAL ONE ×2 (13:20→14:01)
[2023-08-23] MEDS: HEPARIN SODIUM 1,000 UN/ML (10ML VL) IV ONE (13:37)
[2023-08-23] MEDS: NITROGLYCERIN 1000MCG/10ML SYRINGE INTRACORON ONE (13:42)
[2023-08-23] MEDS: IOPAMIDOL-370 100ML BTL INJ ONE ×3 (13:46→14:37)
[2023-08-23] MEDS ORDERED: CLOPIDOGREL 75 MG TAB ONE (14:19)
[2023-08-23] MEDS: amLODIPine 5 MG TAB PO ONE (14:28)
[2023-08-23] MEDS: CLOPIDOGREL 75 MG TAB PO ONE (14:29)
[2023-08-23] MEDS: HYDROmorphone 0.5 MG/0.5 ML SYRINGE IVP ONE (14:37)
[2023-08-23] MEDS: amLODIPine 5 MG TAB PO STA (17:14)
[2023-08-23] MEDS: SODIUM CHLORIDE 0.9% 1,000 ML IV SCH (17:15)
[2023-08-23] MEDS: carvediloL 6.25 MG TAB PO SCH (17:56)
[2023-08-23] MEDS: ATORVASTATIN 80 MG TAB PO SCH (20:56)
[2023-08-23] MEDS: HYDROmorphone 0.5 MG/0.5 ML SYRINGE IVP PRN (21:53)
--- NOTE | 2023-08-24 01:31 | CC ---
CARDIAC CATHETERIZATION REPORT PROCEDURES PERFORMED: 1. Left heart catheterization and coronary angiography. 2. IFR assessment of proximal and mid LAD lesion. 3. PTCA and stenting of mid LAD lesion with drug-eluting stent. 4. PTCA of major diagonal branch with a 2.0 caliber NC Trek balloon. PERFORMED BY: Dr. Ravi Torres. ANESTHESIA: Moderate conscious sedation time was 94 minutes. The patient was administered Versed. Oxygen saturation, hemodynamics, and EKG were monitored closely. CLINICAL INFORMATION: Ms. 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 She has history of CAD with a proximal/ostial LAD disease of about 50% to 55% and mid LAD lesion of about 40% to 45%. She has a right-dominant system. No other significant disease in the circumflex or RCA. She is a smoker and has hypertension, hyperlipidemia, and some peripheral vascular disease with vasculitis-type picture, which has resolved. She was scheduled to see me in the office next week, but came in with symptoms of chest tightness and pressure and also had a troponin elevation suggestive of [id number] ND. She was therefore advised cardiac cath after due discussion regarding risks, benefits, and options. PROCEDURE NOTE: I tried to get the radial access. I was able to get the access, but could not advance the wire comfortably; therefore, I switched over to the right femoral approach. I applied manual pressure. Good hemostasis was secured in the right radial site. Under strict aseptic precautions and local anesthesia, a 6-Luxembourgish introducer was placed with a micropuncture needle technique in the right femoral artery. Using standard Hussein catheters, I performed coronary angiography and also the same right catheter was used to check LV pressures, but LV-gram was not performed. Following the procedure, I noted that there was a significant lesion in the LAD proximal almost ostial and also midportion. I recommended that we will perform IFR assessment. I did perform an IFR, noted that the proximal lesion was unremarkable with the IFR of about 0.96, but the mid lesion was significant with IFR of 0.82. I therefore performed stenting of the mid lesion and dilatation of a diagonal branch that came from the lesion with a 2.0 caliber balloon. Following the procedure, the sheath was taken out and Angio-Seal device used to secure hemostasis and the patient was sent to the room in a stable condition. The patient received 300 mg of Plavix additionally. She was already on aspirin and Plavix. She will be on a combination of aspirin and Plavix without interruption for 12 months. The patient also received 3500 units of heparin and an additional 500 units. ACT was 265. CARDIAC CATHETERIZATION FINDINGS The left ventricular end-diastolic pressure was about 14 mmHg without any gradient across aortic valve. Right coronary artery: Large dominant vessel. No significant disease. Distally bifurcates into PDA and PLV, both of which are somewhat smaller, have minor irregularities. No significant disease. Mild calcification. No significant disease in RCA, but the branches of RCA are somewhat smaller, but still technically a dominant vessel. Left main coronary artery: Short vessel, which bifurcates immediately into LAD and circumflex. It appears that just before the origin of the LAD, there is a small branch that comes off from the left main and runs in the diagonal distribution. This is about a 2.0 caliber vessel and seems to come up directly from the left main in the diagonal distribution. After this, the LAD and diagonal come off. Left main itself is short, has no significant disease. Left anterior descending coronary artery: This vessel has an ostial/proximal lesion of about 50%, then the caliber improves, and in the midportion at the origin of the diagonal branch, there is an eccentric 60% to 70% narrowing, which seems to be significant in some views. Beyond it, the LAD is a large caliber vessel, no significant disease, and it curves over the apex, and the distal 1/5 of the vessel has diffuse disease with probably a focal area of stenosis after it curves over the apex and that stenosis is almost 70%, but the amount of myocardium beyond that is small. The LAD itself, after the mid lesion of 60% to 70%, has no other significant disease. There is mild calcification. Left posterior circumflex coronary artery: This is technically a nondominant vessel, good caliber, has no significant disease in the ostium, gives off an obtuse marginal branch, a secondary branch, and another continuation of circumflex as a posterolateral branch and a left atrial circumflex branch. All of these are small in caliber distribution, but no significant disease. A single diagonal branch comes off from the left main and runs in the diagonal distribution and this is only a small 2.0 caliber vessel, has some 50% disease at its origin as it comes off from the left main. FINAL IMPRESSION: This patient has normal filling pressures. No significant gradient. There is a significant mid LAD lesion of 60% to 70%, moderate lesion of 50% to 55% in the proximal LAD. No significant disease in circumflex or the RCA, which is dominant. There is a second diagonal that comes off from the mid LAD lesion of about 80% to 85%. There is a high diagonal, comes directly from the left main in the diagonal distribution, has about a 50% to 55% lesion. RECOMMENDATIONS: I recommended IFR of the LAD, and if significant to perform intervention, but if the proximal was significant, I would seek a surgical opinion. Discussed with the patient. Proceeded to perform IFR and intervention. INTERVENTION PROCEDURE DETAILS: I used initially a JL4 guide catheter. I had difficulty advancing the wire into the LAD. The wire kept going into the diagonal branch that comes off from the left main. I used a 3.5 guide and a steep curve on the Omni wire. With this, I was able to get into the LAD and the wire was kept distally. I performed the IFR of the mid lesion, which was significant at 0.82. IFR assessment of the proximal lesion was normal at 0.96. The mid lesion was therefore significant more and proximal lesion was not, I decided to perform intervention in the same setting. IFR assessment was performed using the standard protocol of zeroing the vessels and calibrating and normalizing appropriately. I used a straight short run-through wire and this wire was advanced and positioned in the diagonal branch that came off from the mid LAD lesion. I performed PTCA of the diagonal branch with a 2.0 caliber NC Trek balloon of 12 mm length. Two inflations were given. Significant improvement was noted. I then deployed a 15 mm long 3.25 caliber Xience stent in the mid LAD with excellent angiographic result. The patient had chest pain and precordial ST elevation. There was also II, III, aVF elevation mainly because of the distal inferoapical portion, which had an independent lesion in the distal LAD. Excellent angiographic result was achieved without complication. The sheath was then taken out, and Angio-Seal device used to secure hemostasis and the patient was sent to the room in a stable condition. Results were discussed with the patient's family. We discussed about smoking cessation as well, and the patient will be on dual-antiplatelet therapy without interruption for a duration of 1 year. MMMERCEDES / ROSEN: [id number] /
[2023-08-24] MEDS: amLODIPine 5 MG TAB PO SCH (09:18)
[2023-08-24] MEDS: ASPIRIN 81 MG PO SCH (09:18)
[2023-08-24 09:52] LABS: Basophils % (A) 0 %; Eosinophils # (A) 0.2 k/uL (0-0.7); Eosinophils % (A) 2 %; HCT 34.5 % (34.0-46.0); HGB 11.5 gm/dL (11.4-16.0); Lymphocytes # (A) 1.3 k/uL (1.0-4.8); Lymphocytes % (A) 18 %; MCHC 33.3 g/dL (31.0-37.0); Mean Platelet Volume 9.6; Monocytes # (A) 0.3 k/uL (0-1.0); Monocytes % (A) 4 %; Neutrophils # (A) 5.2 k/uL (1.3-7.7); Neutrophils % (A) 74 %; Platelet Count 129 k/uL (150-450); RDW 12.6 % (11.5-15.5)
[2023-08-24 11:01] LABS: African American GFR (CKD) >90 (>60 ml/min/1.73 sqM); Anion Gap 4 mmol/L; Blood Urea Nitrogen 10 mg/dL (7-17); Carbon Dioxide 21 mmol/L (22-30); Chloride 110 mmol/L (98-107); Glucose 183 mg/dL (74-99); Magnesium 1.9 mg/dL (1.6-2.3); Non-African American GFR(CKD) 82 (>60 ml/min/1.73 sqM); Potassium 3.3 mmol/L (3.5-5.1); Sodium 135 mmol/L (137-145)
--- NOTE | 2023-08-24 12:23 | P.PN ---
Subjective HISTORY OF PRESENT ILLNESS: This is a 67-year-old female with a past medical history significant for mitral regurgitation, Takotsubo cardiomyopathy, nonobstructive CAD, hypertension, hyperlipidemia, Crohn's disease, GERD, and nicotine dependence. Patient follows in the office with Dr. Torres. We have been asked to see the patient in consultation for elevated troponins. Patient examined at the bedside. Patient states she has been having heartburn type symptoms for the past year. However she states over the past 2 days she has had 2 episodes that were significantly worse. She states the first time occurred when she was cooking and the second time occurred yesterday while she was sitting in the chair. She states that she fell asleep and was awoken by chest discomfort. She denies any chest pain or pressure at the time of examination. Denies any shortness of breath. Patient was found to have elevated troponins and was started on IV heparin. Vital signs are stable. DIAGNOSTICS: - EKG reveals sinus mechanism with nonspecific ST-T wave changes. - Chest xray negative for acute process. - Laboratory data: WBC 7.2. Hemoglobin 15.2. Platelet count 150. Sodium 138. Potassium 4.4. BUN 15. Creatinine 0.69. Magnesium 1.9. Troponin 0.122. 0.521. 1.430. - Current home cardiac medications include Catapres 0.1 mg twice a day, carvedilol 3.125 mg twice a day, losartan 100 mg daily, Imdur 30 mg at night, Plavix 75 mg daily, Lipitor 40 mg at night, aspirin 81 mg daily. - Echocardiogram completed revealing ejection fraction 40 to 45%, anterior apical and anterior septal severe hypokinesia, moderate MR, mild TR - Cardiac catheterization history: January 2022 revealing normal filling pressures. No gradient. 45% ejection fraction. Mid anterior hypokinesia. Ostial LAD 55%, mid LAD 40%, first and second diagonal has 90 and 70% small caliber vessels, 1.5 cm circumflex and minute RCA with no significant disease 08/24/2023 Patient is status postcardiac catheterization with Dr. Torres with stenting of the mid LAD lesion with a drug-eluting stent. Patient underwent PTCA of major diagonal branch. iFR assessment of proximal and mid LAD lesion. Patient examined this morning at the bedside. Patient denies any further episodes of chest pain or pressure. She denies any shortness of breath. Vital signs are stable. PHYSICAL EXAM: VITAL SIGNS: Reviewed. GENERAL: Well-developed in no acute distress. HEENT: Head is normocephalic. Pupils are equal, round. Sclerae anicteric. Mucous membranes of the mouth are moist. Neck supple. No JVD or thyromegaly LUNGS: Respirations even and unlabored. Lungs essentially clear to auscultation bilaterally. HEART: Regular rate and rhythm. S1 and S2 heard. ABDOMEN: Soft. Nondistended. Nontender. EXTREMITIES: Normal range of motion. No clubbing or cyanosis. Peripheral pulses intact. No lower extremity edema NEUROLOGIC: Awake and alert. Oriented x 3. ASSESSMENT: Non-STEMI s/p cardiac catheterization as above Nonobstructive CAD History of Takotsubo cardiomyopathy Moderate mitral regurgitation Hypertension Hyperlipidemia Crohn's disease GERD Nicotine dependence PLAN: Continue current cardiac medications Repeat limited echo in the a.m. Continue to monitor patient for additional 24 hours Possible discharge home tomorrow if patient remains stable Nurse practitioner note has been reviewed by physician. Signing provider agrees with the documented findings, assessment, and plan of care documented by BOX BLANK MACHINE FEEDER as a scribe. Objective - Vital Signs Vital signs: Vital Signs Temp 98.1 F 08/24/23 04:00 Pulse 62 08/24/23 04:00 Resp 17 08/24/23 04:00 BP 108/50 08/24/23 04:00 Pulse Ox 96 08/24/23 04:00 FiO2 Intake & Output 08/23/23 08/24/23 08/24/23 18:59 06:59 18:59 Intake Total 400 237 Output Total 260 Balance 400 -260 237 Weight 52.163 kg Intake: IV 400 Oral 237 Output: Urine 260 Other: Voiding Method Toilet # Voids 3 1 - Labs CBC & Chem 7: 08/24/23 09:03 08/24/23 09:03 Labs: Abnormal Lab Results - Last 24 Hours (Table) 08/23/23 08/24/23 08/24/23 Range/Units 11:26 09:03 09:03 RBC 3.70 L (3.80-5.40) m/uL Plt Count 129 L (150-450) k/uL Sodium 135 L (137-145) mmol/L Potassium 3.3 L (3.5-5.1) mmol/L Chloride 112 H 110 H (98-107) mmol/L Carbon Dioxide 21 L (22-30) mmol/L Glucose 183 H (74-99) mg/dL Calcium 8.3 L 8.0 L (8.4-10.2) mg/dL
--- NOTE | 2023-08-24 16:16 | P.PN ---
Subjective Progress Note Date: 08/24/23 Patient is a 67-year-old female came with complaints of increased heartburn that her heartburn is under good been going on for about couple months not improved with Protonix but yesterday her heartburn is much worse. Patient is found to have ST depressions in the inferior leads and patient's troponin was elevated with progressive worsening after 1.6. Patient does have history of coronary artery disease history of cardiomyopathy. Patient had echocardiogram today which showed ejection fraction of 40% with segmental wall motion abnormalities. Chest x-ray did not show any significant abnormality. Patient does have multiple other medical problems with previous history of coronary. Patient does have history of Crohn's disease, aortitis. Patient continues to smoke half a pack of cigarettes a day. 08/23/2023 Patient is evaluated today she is ambulating around the room. No reports of chest discomfort or shortness of breath. She also does not report any further symptoms of heartburn. Patient did undergo cardiac catheterization revealing significant mid LAD lesion of 60 to 70%, moderate lesion of 50 to 55% in the proximal LAD. Second diagonal that comes off from the mid LAD lesion of about 80 to 85%. There is a high diagonal comes directly from the left main and the diagonal distribution has about a 50 to 55% lesion. No significant disease in circumflex or the RCA which is dominant. Mention of considering an IFR of the LAD versus a surgical opinion. For now patient will be monitored overnight with the recommendation for repeat echocardiogram in the morning. Potassium is 3.3 today Review of Systems Constitutional: Denied any fatigue denied any fever. Cardio vascular: denied any chest pain, palpitations Gastrointestinal: denied any nausea, vomiting, diarrhea Pulmonary: Denied any shortness of breath cough Neurologic denied any new focal deficits All inpatient medications were reviewed and appropriate changes in these medications as dictated in the interval history and assessment and plan. PHYSICAL EXAMINATION: GENERAL: The patient is alert and oriented x3, not in any acute distress. Well developed, well nourished. HEENT: Pupils are round and equally reacting to light. EOMI. No scleral icterus. No conjunctival pallor. Normocephalic, atraumatic. No pharyngeal erythema. No thyromegaly. CARDIOVASCULAR: S1 and S2 present. No murmurs, rubs, or gallops. PULMONARY: Chest is clear to auscultation, no wheezing or crackles. ABDOMEN: Soft, nontender, nondistended, normoactive bowel sounds. No palpable organomegaly. MUSCULOSKELETAL: No joint swelling or deformity. EXTREMITIES: No cyanosis, clubbing, or pedal edema. NEUROLOGICAL: Gross neurological examination did not reveal any focal deficits. SKIN: No rashes. Assessment and plan -Non-ST elevation NC patient underwent cardiac catheterization with lesions as above no PCI. -History of Takotsubo cardiomyopathy patient will have a limited repeat echocardiogram in the morning -Coronary artery disease nonobstructive in the past, continues on dual antiplatelet therapy with aspirin and Plavix -Hypertension continue on losartan daily, carvedilol, normal -Hyperlipidemia -Crohn's disease -Gastroesophageal disease -Continued nicotine use -Hypokalemia replaced repeat labs in the morning Problems patient will be resumed on appropriate home medications Objective - Vital Signs Vital signs: Vital Signs Temp 98.1 F 08/24/23 04:00 Pulse 62 08/24/23 04:00 Resp 17 08/24/23 04:00 BP 108/50 08/24/23 04:00 Pulse Ox 96 08/24/23 04:00 FiO2 Intake & Output 08/23/23 08/24/23 08/24/23 18:59 06:59 18:59 Intake Total 400 Output Total 260 Balance 400 -260 Weight 52.163 kg Intake: IV 400 Output: Urine 260 Other: Voiding Method Toilet # Voids 3 - Labs CBC & Chem 7: 08/24/23 09:03 08/24/23 09:03 Labs: Abnormal Lab Results - Last 24 Hours (Table) 08/23/23 Range/Units 11:26 Chloride 112 H (98-107) mmol/L Calcium 8.3 L (8.4-10.2) mg/dL Assessment and Plan Time with Patient: Less than 30
[2023-08-24] MEDS: POTASSIUM CHLORIDE ER 10 MEQ TAB.ER.PRT PO SCH (17:27)
--- NOTE | 2023-08-25 09:28 | CA ---
Transthoracic Echo Report Name: Virginia Gayle Age: 67 Gender: F : 1955 Exam Date: 08/25/2023 07:28 Exam Location: [facility] Ht (in): 64 Wt (lb): 115 Ordering Physician: Clarissa Anderson Attending/Referring Phys: [id number], Justin [employer] Flusher Driver Dona Maya RCS Procedure CPT: Indications: Status postcardiac catheterization, LV function Cardiac Hx: Status post cath 08/23/2023 Technical Quality: Good Contrast 1: Total Dose (mL): Contrast 2: Total Dose (mL): MEASUREMENTS (Male / Female) Normal Values 2D ECHO LV Diastolic Diameter PLAX 5.0 cm 4.2 - 5.9 / 3.9 - 5.3 cm IVS Diastolic Thickness 1.0 cm 0.6 - 1.0 / 0.6 - 0.9 cm LVPW Diastolic Thickness 0.9 cm 0.6 - 1.0 / 0.6 - 0.9 cm LV Relative Wall Thickness 0.4 RV Internal Dim ED PLAX 2.0 cm LVOT Diameter 2.0 cm LV Diastolic Volume MOD BP 82.1 cm??? 67 - 155 / 56 - 104 cm??? LV Systolic Volume MOD BP 31.4 cm??? 22 - 58 / 19 - 49 cm??? LV Ejection Fraction MOD BP 61.8 % >= 55 % LV Cardiac Index MOD BP 1889.5 cm???/min???m??? LV Diastolic Volume MOD 4C 83.1 cm??? LV Systolic Volume MOD 4C 30.4 cm??? LV Ejection Fraction MOD 4C 63.4 % LV Cardiac Index MOD 4C 1963.0 cm???/min???m??? LV Diastolic Length 4C 7.3 cm LV Systolic Length 4C 6.5 cm LV Diastolic Volume MOD 2C 80.6 cm??? LV Systolic Volume MOD 2C 32.1 cm??? LV Ejection Fraction MOD 2C 60.2 % LV Cardiac Index MOD 2C 1805.3 cm???/min???m??? LV Diastolic Length 2C 7.4 cm LV Systolic Length 2C 6.4 cm LA Volume 44.9 cm??? 18 - 58 / 22 - 52 cm??? LA Volume Index 29.3 cm???/m??? 16 - 28 cm???/m??? DOPPLER TR Peak Velocity 237.7 cm/s TR Peak Gradient 22.6 mmHg Right Ventricular Systolic Press 27.2 mmHg PV Peak Velocity 65.3 cm/s PV Peak Gradient 1.7 mmHg FINDINGS Left Ventricle Left ventricular ejection fraction is estimated at 55-60 %. Left ventricular cavity size normal. Left ventricular wall thickness normal. mid to distal Inferior-lateral wall hypokinetic and apical wall hypokinesia. Right Ventricle Normal right ventricular size and function. Right ventricular systolic pressure within normal limits. Right Atrium Normal right atrial size. Left Atrium Mildly increased left atrial volume. Mitral Valve Structurally normal mitral valve. No mitral stenosis.Trace mitral regurgitation. Aortic Valve Trileaflet aortic valve. No aortic valve stenosis or regurgitation. Tricuspid Valve Structurally normal tricuspid valve. No tricuspid stenosis. Mild tricuspid regurgitation. Pulmonic Valve Structurally normal pulmonic valve. No pulmonic stenosis. No pulmonic regurgitation. Pericardium No pericardial effusion. Aorta Normal size aortic root and proximal ascending aorta. CONCLUSIONS Left ventricular ejection fraction is estimated at 55-60 %. Mid to distal Inferior-lateral wall hypokinetic and apical wall hypokinesia. No significant valvular disease No pericardial effusion Previewed by: Dr Jaciel Thao (Electronically Signed) Final Date: 25 August 2023 09:27
[2023-08-25] MEDS ORDERED: ALPRAZolam 0.25 MG TAB PO PRN (09:34)
[2023-08-25] MEDS ORDERED: ALPRAZolam 0.5 MG TAB PO PRN (09:34)
[2023-08-25] MEDS ORDERED: NITROGLYCERIN SL TABS 0.4 MG TAB SUBLINGUAL PRN (09:34)
--- NOTE | 2023-08-25 11:15 | P.PN ---
Subjective HISTORY OF PRESENT ILLNESS: This is a 67-year-old female with a past medical history significant for mitral regurgitation, Takotsubo cardiomyopathy, nonobstructive CAD, hypertension, hyperlipidemia, Crohn's disease, GERD, and nicotine dependence. Patient follows in the office with Dr. Torres. We have been asked to see the patient in consultation for elevated troponins. Patient examined at the bedside. Patient states she has been having heartburn type symptoms for the past year. However she states over the past 2 days she has had 2 episodes that were significantly worse. She states the first time occurred when she was cooking and the second time occurred yesterday while she was sitting in the chair. She states that she fell asleep and was awoken by chest discomfort. She denies any chest pain or pressure at the time of examination. Denies any shortness of breath. Patient was found to have elevated troponins and was started on IV heparin. Vital signs are stable. DIAGNOSTICS: - EKG reveals sinus mechanism with nonspecific ST-T wave changes. - Chest xray negative for acute process. - Laboratory data: WBC 7.2. Hemoglobin 15.2. Platelet count 150. Sodium 138. Potassium 4.4. BUN 15. Creatinine 0.69. Magnesium 1.9. Troponin 0.122. 0.521. 1.430. - Current home cardiac medications include Catapres 0.1 mg twice a day, carvedilol 3.125 mg twice a day, losartan 100 mg daily, Imdur 30 mg at night, Plavix 75 mg daily, Lipitor 40 mg at night, aspirin 81 mg daily. - Echocardiogram completed revealing ejection fraction 40 to 45%, anterior apical and anterior septal severe hypokinesia, moderate MR, mild TR - Cardiac catheterization history: January 2022 revealing normal filling pressures. No gradient. 45% ejection fraction. Mid anterior hypokinesia. Ostial LAD 55%, mid LAD 40%, first and second diagonal has 90 and 70% small caliber vessels, 1.5 cm circumflex and minute RCA with no significant disease 08/24/2023 Patient is status postcardiac catheterization with Dr. Torres with stenting of the mid LAD lesion with a drug-eluting stent. Patient underwent PTCA of major diagonal branch. iFR assessment of proximal and mid LAD lesion. Patient examined this morning at the bedside. Patient denies any further episodes of chest pain or pressure. She denies any shortness of breath. Vital signs are stable. 08/25/2023 Patient examined this morning at the bedside. Patient has had no further episodes of chest pain or pressure. Denies any shortness of breath. Patient underwent EKG yesterday revealing diffuse T wave inversions. Repeat EKG this morning continues to reveal diffuse T wave inversions. These are new from admission. Repeat echocardiogram reveals ejection fraction 55 to 60% with mid to distal inferior lateral wall hypokinesis and apical wall hypokinesis. Trace mitral regurgitation and mild mitral regurgitation. PHYSICAL EXAM: VITAL SIGNS: Reviewed. GENERAL: Well-developed in no acute distress. HEENT: Head is normocephalic. Pupils are equal, round. Sclerae anicteric. Mucous membranes of the mouth are moist. Neck supple. No JVD or thyromegaly LUNGS: Respirations even and unlabored. Lungs essentially clear to auscultation bilaterally. HEART: Regular rate and rhythm. S1 and S2 heard. ABDOMEN: Soft. Nondistended. Nontender. EXTREMITIES: Normal range of motion. No clubbing or cyanosis. Peripheral pulses intact. No lower extremity edema NEUROLOGIC: Awake and alert. Oriented x 3. ASSESSMENT: Non-STEMI s/p cardiac catheterization as above Nonobstructive CAD History of Takotsubo cardiomyopathy Moderate mitral regurgitation Hypertension Hyperlipidemia Crohn's disease GERD Nicotine dependence PLAN: Continue current cardiac medications Patient to undergo repeat cardiac catheterization today due to abnormal EKG Further recommendations pending patient course Nurse practitioner note has been reviewed by physician. Signing provider agrees with the documented findings, assessment, and plan of care documented by OCCUPATIONAL THERAPY PROGRAM DIRECTOR as a scribe. Objective - Vital Signs Vital signs: Vital Signs Temp 98.0 F 08/25/23 09:35 Pulse 59 L 08/25/23 09:35 Resp 16 08/25/23 09:35 BP 139/63 08/25/23 09:35 Pulse Ox 97 08/25/23 09:35 FiO2 Intake & Output 08/24/23 08/25/23 08/25/23 18:59 06:59 18:59 Intake Total 1317 240 Output Total 200 Balance 1317 -200 240 Intake: Oral 1317 240 Output: Urine 200 Other: Voiding Method Toilet Toilet # Voids 1 1 - Labs CBC & Chem 7: 08/24/23 09:03 08/24/23 09:03
[2023-08-25 11:32] LABS: African American GFR (CKD) >90 (>60 ml/min/1.73 sqM); Anion Gap 4 mmol/L; Blood Urea Nitrogen 12 mg/dL (7-17); Calcium 8.8 mg/dL (8.4-10.2); Carbon Dioxide 24 mmol/L (22-30); Chloride 111 mmol/L (98-107); Glucose 83 mg/dL (74-99); Non-African American GFR(CKD) 88 (>60 ml/min/1.73 sqM); Potassium 4.7 mmol/L (3.5-5.1); Sodium 139 mmol/L (137-145)
[2023-08-25] MEDS: ASPIRIN 325 MG TAB PO STA (11:33)
[2023-08-25] MEDS: ATORVASTATIN 80 MG TAB PO STA (11:34)
[2023-08-25] MEDS: SODIUM CHLORIDE 0.9% 1,000 ML in EMPTY BAG 1 BAG IV SCH (11:35)
[2023-08-25] MEDS: SODIUM CHLORIDE 0.9% 1,000 ML IV ONE (11:45)
[2023-08-25] MEDS ORDERED: LIDOCAINE 1% INJ 10MG/ML (20 ML MDV) ONE (11:46)
[2023-08-25] MEDS ORDERED: HEPARIN SODIUM 1,000 UN/ML (10ML VL) ONE (11:46)
[2023-08-25] MEDS ORDERED: VERAPAMIL 2.5 MG/ML 2 ML AMP ONE (11:49)
[2023-08-25] MEDS ORDERED: fentaNYL (PF) 50 MCG/ML 2 ML AMP ONE (12:25)
[2023-08-25] MEDS: MIDAZOLAM 2 MG/2 ML VIAL IVP ONE (12:27)
[2023-08-25] MEDS: LIDOCAINE 1% INJ 10MG/ML (20 ML MDV) SQ ONE (12:29)
[2023-08-25] MEDS: fentaNYL (PF) 50 MCG/ML 2 ML AMP IVP ONE (12:32)
[2023-08-25] MEDS ORDERED: RX INFO: IV CONTRAST WAS GIVEN 1 EACH MISC MISCELLANE PRN (12:49)
[2023-08-25] MEDS: IOPAMIDOL-370 100ML BTL INJ ONE (12:51)
--- NOTE | 2023-08-25 12:54 | P.PCN ---
Date of Procedure: 08/25/23 Operative Findings: CARDIAC CATHETERIZATION PERFORMING PHYSICIAN: Armando Morris MD, RPVI PROCEDURE PERFORMED: 1. Selective right and left coronary angiogram 2. Left heart catheterization 3. Ultrasound-guided access of the left common femoral artery and selective left common femoral artery angiogram INDICATION: Unstable angina and a 67-year-old female patient who underwent recently stenting of the left anterior descending artery by Dr. Torres COMPLICATION: None APPROACH: Left common femoral artery LEVEL OF SEDATION: Moderate with sedation in length of 20 minutes PROCEDURE DESCRIPTION: After obtaining an informed consent, the patient was brought to cardiac dental laboratory technology teacher. Local anesthesia was performed using lidocaine subcutaneously. The leftcommon femoral artery was cannulated using micropuncture technique under ultrasound guidance, the micropuncture wire passed easily then the micropuncture sheath was advanced over the wire then the micropuncture sheath was exchanged over 035 wire into a [place] sheath.Selective right and left coronary angiogram using a [place] JR4 and JL catheters. After that I did a gradient measurement across the left external iliac artery and that came in to be nonischemic. Following that we did left heart catheterization using [place] pigtail catheter. The procedure was completed there was no complication. SELECTIVE CORONARY ANGIOGRAM: The right coronary artery: Large caliber vessel and a dominant vessel and appeared to be angiographically normal. Left main: Is angiographically normal The left circumflex: Large-caliber vessel non-dominant vessel. The left circumflex is angiographically normal and gives rises into an OM1 which appeared to be normal The left anterior descending artery: The ostial LAD has intermediate lesion appeared to be in the range of 50%. The lesion documented to be nonflow limiting by Doppler wire daily as ago. The stent in the proximal LAD appeared to be patent. The mid LAD has mild disease only. HEMODYNAMICS: The left ventricular end-diastolic pressure was 20 mmHg was no significant gradient across aortic valve CONCLUSION: 1. Patent stent in the proximal LAD. Intermediate disease involving the ostial LAD documented to be nonflow limiting by Doppler wire 2 days ago 2. Elevated left-sided filling pressure POSTPROCEDURE MANAGEMENT: Medical treatment
[2023-08-25] MEDS: SODIUM CHLORIDE 0.9% 1,000 ML IV SCH (14:09)
--- NOTE | 2023-08-26 05:58 | P.PN ---
Subjective Progress Note Date: 08/25/23 Patient is a 67-year-old female came with complaints of increased heartburn that her heartburn is under good been going on for about couple months not improved with Protonix but yesterday her heartburn is much worse. Patient is found to have ST depressions in the inferior leads and patient's troponin was elevated with progressive worsening after 1.6. Patient does have history of coronary artery disease history of cardiomyopathy. Patient had echocardiogram today which showed ejection fraction of 40% with segmental wall motion abnormalities. Chest x-ray did not show any significant abnormality. Patient does have multiple other medical problems with previous history of coronary. Patient does have history of Crohn's disease, aortitis. Patient continues to smoke half a pack of cigarettes a day. 08/24/2023 Patient is evaluated today she is ambulating around the room. No reports of chest discomfort or shortness of breath. She also does not report any further symptoms of heartburn. Patient did undergo cardiac catheterization revealing significant mid LAD lesion of 60 to 70%, moderate lesion of 50 to 55% in the proximal LAD. Second diagonal that comes off from the mid LAD lesion of about 80 to 85%. There is a high diagonal comes directly from the left main and the diagonal distribution has about a 50 to 55% lesion. No significant disease in circumflex or the RCA which is dominant. Mention of considering an IFR of the LAD versus a surgical opinion. For now patient will be monitored overnight with the recommendation for repeat echocardiogram in the morning. Potassium is 3.3 today 08/25/2023 Patient evaluated today on the medical floor. Echocardiogram shows improved EF of 55-60%. Underwent cardiac catheterization showing patent stent in the proximal LAD. Electrolytes improved sodium 139, potassium 4.7. Review of Systems Constitutional: Denied any fatigue denied any fever. Cardio vascular: denied any chest pain, palpitations Gastrointestinal: denied any nausea, vomiting, diarrhea Pulmonary: Denied any shortness of breath cough Neurologic denied any new focal deficits All inpatient medications were reviewed and appropriate changes in these medications as dictated in the interval history and assessment and plan. PHYSICAL EXAMINATION: GENERAL: The patient is alert and oriented x3, not in any acute distress. Well developed, well nourished. HEENT: Pupils are round and equally reacting to light. EOMI. No scleral icterus. No conjunctival pallor. Normocephalic, atraumatic. No pharyngeal erythema. No thyromegaly. CARDIOVASCULAR: S1 and S2 present. No murmurs, rubs, or gallops. PULMONARY: Chest is clear to auscultation, no wheezing or crackles. ABDOMEN: Soft, nontender, nondistended, normoactive bowel sounds. No palpable organomegaly. MUSCULOSKELETAL: No joint swelling or deformity. EXTREMITIES: No cyanosis, clubbing, or pedal edema. NEUROLOGICAL: Gross neurological examination did not reveal any focal deficits. SKIN: No rashes. Assessment and plan -Non-ST elevation [place] patient underwent cardiac catheterization had stent to the proximal LAD. Patient went back to the laborer pipeline, proximal LAD stent patent. -History of Takotsubo cardiomyopathy, echocardiogram showing improved EF 55-60%. -Coronary artery disease nonobstructive in the past, continues on dual antiplatelet therapy with aspirin and Plavix -Hypertension continue on losartan daily, carvedilol, -Hyperlipidemia -Crohn's disease -Gastroesophageal disease -Continued nicotine use -Hypokalemia replaced repeat labs in the morning The impression and plan of care has been dictated by Pallavi Schuler, Nurse Practitioner as directed. Dr. Lane MD I have performed a history and physical examination and medical decision making of this patient, discussed the same with the dictator, and agree with the dictators assessment and plan as written, documented as a scribe. Based on total visit time, I have performed more than 50% of this visit. Objective - Vital Signs Vital signs: Vital Signs Temp 98.4 F 08/25/23 20:00 Pulse 60 08/25/23 20:00 Resp 18 08/25/23 20:00 BP 148/80 08/25/23 20:00 Pulse Ox 96 08/25/23 20:00 FiO2 Intake & Output 08/25/23 08/25/23 08/26/23 06:59 18:59 06:59 Intake Total 580 Output Total 200 Balance -200 580 Intake: IV 100 Oral 480 Output: Urine 200 Other: Voiding Method Toilet Toilet Toilet # Voids 2 1 - Labs CBC & Chem 7: 08/24/23 09:03 08/25/23 10:34 Labs: Abnormal Lab Results - Last 24 Hours (Table) 08/25/23 Range/Units 10:34 Chloride 111 H (98-107) mmol/L Assessment and Plan Time with Patient: Less than 30
[2023-08-26] MEDS ORDERED: HEPARIN SODIUM,PORCINE (1 ML) 2,500 UNIT in SODIUM CHLORIDE 0.9% 250 ML IRRIGATION PRN (07:00)
[2023-08-26] MEDS ORDERED: HEPARIN SODIUM,PORCINE 10,000 UNIT in SODIUM CHLORIDE 0.9% 1,000 ML IRRIGATION PRN (07:00)
[2023-08-26 09:25] VITALS: BP 117/61; PULSE 62; RESP 16; TEMP 98.1
--- NOTE | 2023-08-26 11:36 | P.PN ---
Subjective HISTORY OF PRESENT ILLNESS: This is a 67-year-old female with a past medical history significant for mitral regurgitation, Takotsubo cardiomyopathy, nonobstructive CAD, hypertension, hyperlipidemia, Crohn's disease, GERD, and nicotine dependence. Patient follows in the office with Dr. Torres. We have been asked to see the patient in consultation for elevated troponins. Patient examined at the bedside. Patient states she has been having heartburn type symptoms for the past year. However she states over the past 2 days she has had 2 episodes that were significantly worse. She states the first time occurred when she was cooking and the second time occurred yesterday while she was sitting in the chair. She states that she fell asleep and was awoken by chest discomfort. She denies any chest pain or pressure at the time of examination. Denies any shortness of breath. Patient was found to have elevated troponins and was started on IV heparin. Vital signs are stable. DIAGNOSTICS: - EKG reveals sinus mechanism with nonspecific ST-T wave changes. - Chest xray negative for acute process. - Laboratory data: WBC 7.2. Hemoglobin 15.2. Platelet count 150. Sodium 138. Potassium 4.4. BUN 15. Creatinine 0.69. Magnesium 1.9. Troponin 0.122. 0.521. 1.430. - Current home cardiac medications include Catapres 0.1 mg twice a day, carvedilol 3.125 mg twice a day, losartan 100 mg daily, Imdur 30 mg at night, Plavix 75 mg daily, Lipitor 40 mg at night, aspirin 81 mg daily. - Echocardiogram completed revealing ejection fraction 40 to 45%, anterior apical and anterior septal severe hypokinesia, moderate MR, mild TR - Cardiac catheterization history: January 2022 revealing normal filling pressures. No gradient. 45% ejection fraction. Mid anterior hypokinesia. Ostial LAD 55%, mid LAD 40%, first and second diagonal has 90 and 70% small caliber vessels, 1.5 cm circumflex and minute RCA with no significant disease 08/24/2023 Patient is status postcardiac catheterization with Dr. Torres with stenting of the mid LAD lesion with a drug-eluting stent. Patient underwent PTCA of major diagonal branch. iFR assessment of proximal and mid LAD lesion. Patient examined this morning at the bedside. Patient denies any further episodes of chest pain or pressure. She denies any shortness of breath. Vital signs are stable. 08/25/2023 Patient examined this morning at the bedside. Patient has had no further episodes of chest pain or pressure. Denies any shortness of breath. Patient underwent EKG yesterday revealing diffuse T wave inversions. Repeat EKG this morning continues to reveal diffuse T wave inversions. These are new from admission. Repeat echocardiogram reveals ejection fraction 55 to 60% with mid to distal inferior lateral wall hypokinesis and apical wall hypokinesis. Trace mitral regurgitation and mild mitral regurgitation. 08/26/2023 Patient is status post repeat cardiac catheterization yesterday with Dr. Morris revealing patent stent in the proximal LAD. Intermediate disease involving the ostial LAD documented to be nonflow limiting by Doppler wire by Doppler wire 2 days ago. Elevated left-sided filling pressures. Patient examined this morning at the bedside. Patient denies any further episodes of chest pain or pressure. She denies any shortness of breath. Vital signs are stable. PHYSICAL EXAM: VITAL SIGNS: Reviewed. GENERAL: Well-developed in no acute distress. HEENT: Head is normocephalic. Pupils are equal, round. Sclerae anicteric. Mucous membranes of the mouth are moist. Neck supple. No JVD or thyromegaly LUNGS: Respirations even and unlabored. Lungs essentially clear to auscultation bilaterally. HEART: Regular rate and rhythm. S1 and S2 heard. ABDOMEN: Soft. Nondistended. Nontender. EXTREMITIES: Normal range of motion. No clubbing or cyanosis. Peripheral pulses intact. No lower extremity edema NEUROLOGIC: Awake and alert. Oriented x 3. ASSESSMENT: Non-STEMI s/p cardiac catheterization as above Nonobstructive CAD History of Takotsubo cardiomyopathy Moderate mitral regurgitation Hypertension Hyperlipidemia Crohn's disease GERD Nicotine dependence PLAN: Continue current cardiac medications Patient is stable for discharge home today from a cardiology standpoint Nurse practitioner note has been reviewed by physician. Signing provider agrees with the documented findings, assessment, and plan of care documented by CHEMIST ENZYMES as a scribe. Objective - Vital Signs Vital signs: Vital Signs Temp 98.1 F 08/26/23 09:07 Pulse 62 08/26/23 09:07 Resp 16 08/26/23 09:07 BP 117/61 08/26/23 09:07 Pulse Ox 99 08/26/23 09:07 FiO2 Intake & Output 02/08/26/23 08/26/23 18:59 06:59 18:59 Intake Total 580 540 200 Balance 580 540 200 Intake: IV 100 Oral 480 540 200 Other: Voiding Method Toilet Toilet Toilet # Voids 2 2 - Labs CBC & Chem 7: 08/24/23 09:03 08/25/23 10:34
--- NOTE | 2023-08-27 21:38 | P.DS ---
Providers Date of admission: 08/22/23 15:42 Attending physician: Shmuel Guerra MD Consults: 08/22/23 15:41 Consult Physician Routine Consulting Provider: [facility] Consult Reason/Comments: nstemi Do you want consulting provider notified?: Yes Primary care physician: Olinda Barfield Hospital Course: Final Diagonsis -Non-ST elevation [place] patient underwent cardiac catheterization had stent to the proximal LAD. Patient went back to the laborer stores, proximal LAD stent patent. -History of Takotsubo cardiomyopathy, echocardiogram showing improved EF 55-60%. -Coronary artery disease nonobstructive in the past, continues on dual antiplatelet therapy with aspirin and Plavix -Hypertension continue on losartan daily, carvedilol, -Hyperlipidemia -Crohn's disease -Gastroesophageal disease -Continued nicotine use -Hypokalemia replaced repeat labs in the morning Discharge Disposition Patient is stable for discharge home. Underwent stenting to the LAD found to have an ejection fraction of 55 to 60%. Patient's carvedilol has been increased to 6.25 mg twice a day And atorvastatin has been increased to 80 mg at at bedtime patient has also been started on amlodipine daily and clonidine has been discontinued. Recommending to follow-up with a BMP in 2 to 3 days. Patient to see her PCP Dr. Barfield has an appointment made on August 31. She is recommended to follow-up with a new resume specialist Dr. KIMBERLY Torres 1 to 2 weeks. Hospital course Patient is a 67-year-old female came with complaints of increased heartburn that her heartburn is under good been going on for about couple months not improved with Protonix but yesterday her heartburn is much worse. Patient is found to have ST depressions in the inferior leads and patient's troponin was elevated with progressive worsening after 1.6. Patient does have history of coronary artery disease history of cardiomyopathy. Patient had echocardiogram which showed ejection fraction of 40% with segmental wall motion abnormalities. Chest x-ray did not show any significant abnormality. Patient continues to smoke half a pack of cigarettes a day, additional medical history includes GERD, hyperlipidemia, Chron's, hypertension, coronary artery disease nonobstrucitve in the past. Patient was taken to the laborer stores underwent stent to the proximal LAD. She was monitored overnight and taken back to the laborer stores which revels patent stent. Had a repeat echocardiogram revealing an EF of 55-60%. No further reports of heartburn or chest pain no shortness of breath. Her electrolytes have normalized. Lungs are clear S1-S2 auscultated abdomen is soft nontender no focal logical deficits. She is alert x 3. She was monitored overnight again and cleared by cardiology for discharge home. Above recommendations in place. Please see medication reconciliation for list of current medication. Thank you for allowing us to participate in this patient. The impression and plan of care has been dictated by Pallavi Schuler, Nurse Practitioner as directed. Dr. Lane MD I have performed a history and physical examination and medical decision making of this patient, discussed the same with the dictator, and agree with the dictators assessment and plan as written, documented as a scribe. Based on total visit time, I have performed more than 50% of this visit. Patient Condition at Discharge: Stable Plan - Discharge Summary Discharge Rx Participant: Yes New Discharge Prescriptions: New carvediloL [Coreg] 6.25 mg PO BID-W/MEALS #60 tab Atorvastatin [Lipitor] 80 mg PO HS #30 tab Nitroglycerin Sl Tabs [Nitrostat] 0.4 mg SUBLINGUAL Q5M PRN #20 tab PRN Reason: Chest Pain amLODIPine [Norvasc] 5 mg PO DAILY #30 tab Continue Levocetirizine Dihydrochloride [Xyzal] 5 mg PO HS Pantoprazole Sodium 40 mg PO DAILY Estrogens, Conjugated [Premarin] 1.25 mg PO HS Albuterol Inhaler [Ventolin Hfa Inhaler] 2 puff INHALATION RT-Q6H PRN PRN Reason: Shortness Of Breath Aspirin EC [Ecotrin Low Dose] 81 mg PO DAILY Losartan Potassium 100 mg PO DAILY Clopidogrel [Plavix] 75 mg PO DAILY #30 tab traMADol HCL 50 - 100 mg PO Q6H PRN PRN Reason: Pain Isosorbide Mononitrate ER [Imdur] 30 mg PO HS Discontinued Atorvastatin [Lipitor] 40 mg PO HS carvediloL [Coreg] 3.125 mg PO BID cloNIDine HCL [Catapres] 0.1 mg PO BID Discharge Medication List Estrogens, Conjugated [Premarin] 1.25 mg PO HS 09/28/16 [History] Levocetirizine Dihydrochloride [Xyzal] 5 mg PO HS 09/28/16 [History] Pantoprazole Sodium 40 mg PO DAILY 09/28/16 [History] Albuterol Inhaler [Ventolin Hfa Inhaler] 2 puff INHALATION RT-Q6H PRN 08/31/18 [History] Losartan Potassium 100 mg PO DAILY 01/10/22 [History] Clopidogrel [Plavix] 75 mg PO DAILY #30 tab 01/12/22 [Rx] Aspirin EC [Ecotrin Low Dose] 81 mg PO DAILY 08/22/23 [History] Isosorbide Mononitrate ER [Imdur] 30 mg PO HS 08/22/23 [History] traMADol HCL 50 - 100 mg PO Q6H PRN 08/22/23 [History] Atorvastatin [Lipitor] 80 mg PO HS #30 tab 08/26/23 [Rx] Nitroglycerin Sl Tabs [Nitrostat] 0.4 mg SUBLINGUAL Q5M PRN #20 tab 08/26/23 [Rx] amLODIPine [Norvasc] 5 mg PO DAILY #30 tab 08/26/23 [Rx] carvediloL [Coreg] 6.25 mg PO BID-W/MEALS #60 tab 08/26/23 [Rx] Follow up Appointment(s)/Referral(s): Elinor Torres MD [STAFF PHYSICIAN] - 1 Week (Computer system is down please try again this afternoon to make a follow up appointment.) Olinda Barfield DO [Primary Care Provider] - 08/31/23 3:00 pm (TUESDAY) Ambulatory/Diagnostic Orders: Basic Metabolic Panel [LAB.AMB] Time Frame: 3 Days, Location: None Selected Patient Instructions/Handouts: *Surgery [facility] - After Heart Catheterization - Staff Writer Instructions Activity/Diet/Wound Care/Special Instructions: CARDIAC CATH Support your puncture site by applying firm, steady pressure whenever you cough, laugh, sneeze or bear down to have a bowel movement (2-day restriction). Watch for any excessive bruising, active bleeding, a firm knot forming under your skin, extreme tenderness and signs of infection (redness, swelling, fever). Shower daily, do not soak puncture in a tub bath, jacuzzi, pool, dickson etc. for 1 week. This is to prevent risk of infection. Drink plenty of fluids the day of and day after your procedure to flush contrast dye out of your kidneys. Take all medications as directed. Never stop any new medication without your ph ysicians OK. No driving for 2 days after procedure. 10- pound weight lifting restriction for 1 week. Low sodium/low fat diet. Activity limited until follow up appointment with your resume specialist. In case of any problems, please call [facility], [facility] @ [phone]. Just some important facts for you to know after your stent placement Aspirin as anti-platelet therapy - Aspirin lessens the chance of heart attack and stroke. It helps prevent blood clots from forming, allowing the blood to flow more easily. Each day, you will take one 81 mg (non-enteric coated) tablet daily. Do not stop unless instructed by your doctor. Anti-platelet Therapy. -In addition to aspirin, you will take one additional anti-platelet medication daily. This will help prevent a clot from forming in your stent: Ticagreler (Brillinta) -You will need to take your anti-platelet medicine every day for 12 months -Please consult your heart doctor before you stop this medicine. -They may want you to continue for a longer period of time. Statins -A statin medication lowers cholesterol levels in the blood. This helps slow the progression of heart disease. - Please take your statin medication as prescribed by your doctor. -You may be taking the following statin: Atorvastatin (Lipitor) Calcium Channel sultana (CCB) -Your medication: Amlodipine (Norvasc) It works by relaxing blood vessels so blood can flow more easily. This is also used to help with prevention of chest pains, and lowering blood pressure Nitrates Your medications: Isosorbide Mononitrate (Imdur). Works by relaxing and widening blood vessels so that blood can flow easily through the heart. This in turn helps prevent chest pains and lowers blood pressure. Beta blockers -Your Medication: Carvedilol Is a medication that protects your heart from stress and can prevent future heart attacks. It can slow your heart rate. It can take weeks for your body to get used to a beta sultana. The dose may need to be changed a few times as your body adjusts Angiotensin receptor sultana (ARB) -Your medication: Losartan is an angiotensin receptor sultana in the ER used to reduce cardiovascular events and decrease the risk of developing diabetes, these medications are also known to prevent left ventricular remodeling after you have suffered a myocardial infarction. Do not stop taking these medicines without talking to your doctor. -Take all other medicines as directed by your doctor. Do not take any extra aspirin or ibuprofen. They can increase your risk of bleeding. Many [id number] drugs contain aspirin. If you are unsure about what the drug contains, check with your pharmacist before taking it. -For mild discomfort, you may take plain Tylenol (acetaminophen). Follow dose directions, but do not take more than 4,000 mg of acetaminophen in 24 hours. Contact your doctor right away or go to the nearest hospital Emergency Room if you have: -Severe angina or chest pain. (This may be a sign of a problem with your stent.) -Excessive bruising, blood in urine/stool or black tarry stools. Healthy LifeStyle It is important to keep a heart healthy lifestyle. This can improve your long- term health and decrease your risk for heart attacks. -Managing your blood cholesterol, blood pressure, weight, and stress. -The importance of regular exercise. -Heart Healthy Diet: Include more plants in your diet. Eat lots of fresh vegetables and fresh fruits. Eat good fats: plant based oils, avocado, nuts, beans, legumes. Eat more seafood. Limit Meat. Switch to whole grains. -Avoid fried foods and animal fats and processed meats Follow up with your PCP and [facility] Thank you for allowing us to participate in your care, it was truly a pleasure having you for our patient!!! Discharge Disposition: HOME SELF-CARE
== END 2023-08-26 11:30 | disposition home or self-care (01) | DRG 322 ==
LOC: EC 13:46 → 3SCARD 15:42
PROVIDERS: ADMIT Internal Medicine; ATTEND Internal Medicine
PROC: 4A023N7 Measurement of Cardiac Sampling and Pressure, Left Heart, Percutaneous Approach (ICD-10-PCS; 2023-08-23)
PROC: B2111ZZ Fluoroscopy of Multiple Coronary Arteries using Low Osmolar Contrast (ICD-10-PCS; 2023-08-23)
PROC: 4A033BC Measurement of Arterial Pressure, Coronary, Percutaneous Approach (ICD-10-PCS; 2023-08-23)
PROC: 027034Z Dilation of Coronary Artery, One Artery with Drug-eluting Intraluminal Device, Percutaneous Approach (ICD-10-PCS; principal; 2023-08-23 11:15)
PROC: 02703ZZ Dilation of Coronary Artery, One Artery, Percutaneous Approach (ICD-10-PCS; 2023-08-23 11:15)
PROC: 4A023N7 Measurement of Cardiac Sampling and Pressure, Left Heart, Percutaneous Approach (ICD-10-PCS; 2023-08-25)
PROC: B2111ZZ Fluoroscopy of Multiple Coronary Arteries using Low Osmolar Contrast (ICD-10-PCS; 2023-08-25)
DX: I21.4 Non-ST elevation (NSTEMI) myocardial infarction (principal); I42.9 Cardiomyopathy, unspecified; I51.81 Takotsubo syndrome; K50.90 Crohn's disease, unspecified, without complications; I10 Essential (primary) hypertension; I73.9 Peripheral vascular disease, unspecified; J44.9 Chronic obstructive pulmonary disease, unspecified; I25.110 Atherosclerotic heart disease of native coronary artery with unstable angina pectoris; I34.0 Nonrheumatic mitral (valve) insufficiency; F17.210 Nicotine dependence, cigarettes, uncomplicated; E78.5 Hyperlipidemia, unspecified; K21.9 Gastro-esophageal reflux disease without esophagitis; E87.6 Hypokalemia; Z95.5 Presence of coronary angioplasty implant and graft; Z79.899 Other long term (current) drug therapy; Z79.82 Long term (current) use of aspirin; Z79.02 Long term (current) use of antithrombotics/antiplatelets; I25.2 Old myocardial infarction
CPT/HCPCS: 36415; 71046; 76937; 80048; 80053; 81001; 82150; 83690; 83735; 84484; 85025; 85610; 85730; 92921; 93005; 93306; 93308; 93458; 96361; 96365; 96366; 96375; 99291

== ENCOUNTER 2023-08-29 14:06 | Emergency (ER) | payer MEDICARE ==
[2023-08-29 14:39] VITALS: RESP 18
--- NOTE | 2023-08-29 15:06 | ED ---
General Adult HPI - General Chief complaint: Extremity Injury, Lower Stated complaint: LEG PAIN Time Seen by Provider: 08/29/23 14:10 Source: patient, RN notes reviewed, old records reviewed Mode of arrival: ambulatory Limitations: no limitations - History of Present Illness Initial comments: This is a 67-year-old female who presents to the emergency department stating that she had a catheterization through the right groin about a week ago and then through the left. Patient states that he used to plug in the right but they did not in the left and today the area in the groin is tender and there is pain going down the inner thigh. Patient denies any swelling to the leg patient [place] any calf tenderness. Patient was just concerned so she called the telegraph inspector office and they sent her into the emergency department. Patient denies any other symptoms. Patient denies chest pain patient denies difficulty breathing or shortness of breath. Patient denies any fever or chills. - Related Data Home Medications Medication Instructions Recorded Confirmed Estrogens, Conjugated [Premarin] 1.25 mg PO HS 09/28/16 08/22/23 Levocetirizine Dihydrochloride 5 mg PO HS 09/28/16 08/22/23 [Xyzal] Pantoprazole Sodium 40 mg PO DAILY 09/28/16 08/22/23 Albuterol Inhaler [Ventolin Hfa 2 puff INHALATION RT-Q6H PRN 08/31/18 08/22/23 Inhaler] Losartan Potassium 100 mg PO DAILY 01/10/22 08/22/23 Aspirin EC [Ecotrin Low Dose] 81 mg PO DAILY 08/22/23 08/22/23 Isosorbide Mononitrate ER [Imdur] 30 mg PO HS 08/22/23 08/22/23 traMADol HCL 50 - 100 mg PO Q6H PRN 08/22/23 08/22/23 Previous Rx's Medication Instructions Recorded Clopidogrel [Plavix] 75 mg PO DAILY #30 tab 01/12/22 Atorvastatin [Lipitor] 80 mg PO HS #30 tab 08/26/23 Nitroglycerin Sl Tabs [Nitrostat] 0.4 mg SUBLINGUAL Q5M PRN #20 tab 08/26/23 amLODIPine [Norvasc] 5 mg PO DAILY #30 tab 08/26/23 carvediloL [Coreg] 6.25 mg PO BID-W/MEALS #60 tab 08/26/23 Allergies Allergy/AdvReac Type Severity Reaction Status Date / Time No Known Allergies Allergy Verified 08/29/23 14:14 Review of Systems ROS Statement: Those systems with pertinent positive or pertinent negative responses have been documented in the HPI. ROS Other: All systems not noted in ROS Statement are negative. Past Medical History Past Medical History: Coronary Artery Disease (CAD), Chest Pain / Angina, COPD, GERD/Reflux, Hyperlipidemia, Myocardial Infarction (AL), Osteoarthritis (OA) Additional Past Medical History / Comment(s): hx migraines, hiatal hernia , crohns, diverticulits, environmental allergies, states she has aortitis., cysts on kidney, gall stones, nausea and gall bladder pain. Last Myocardial Infarction Date:: 08/2004 History of Any Multi-Drug Resistant Organisms: None Reported Past Surgical History: Appendectomy, Cholecystectomy, Heart Catheterization, Heart Catheterization With Stent, Hernia Repair, Hysterectomy Additional Past Surgical History / Comment(s): oophorectomy, bowel obstruction surgery/adhesions x 2, laparoscopy, colonscopy, rt wrist capal tunnel Past Anesthesia/Blood Transfusion Reactions: No Reported Reaction, Blood Transfusion Reaction Additional Past Anesthesia/Blood Transfusion Reaction / Comment(s): high fever with blood transfusion Date of Last Stent Placement:: 08/23/2023 Past Psychological History: No Psychological Hx Reported Smoking Status: Current every day smoker Past Alcohol Use History: None Reported Past Drug Use History: None Reported - Past Family History Father Family Medical History: Cancer Additional Family Medical History / Comment(s): kidney cancer Sister(s) Family Medical History: Cancer Additional Family Medical History / Comment(s): throat cancer General Exam - General Exam Comments Initial Comments: GENERAL: Patient is well-developed and well-nourished. Patient is nontoxic and well- hydrated and is in no acute distress. ENT: Neck is soft and supple. No significant lymphadenopathy is noted. Oropharynx is clear. Moist mucous membranes. Neck has full range of motion without eliciting any pain. EYES: The sclera were anicteric and conjunctiva were pink and moist. Extraocular movements were intact and pupils were equal round and reactive to light. Eyelids were unremarkable. PULMONARY: Unlabored respirations. Good breath sounds bilaterally. No audible rales rhonchi or wheezing was noted. CARDIOVASCULAR: There is a regular rate and rhythm without any murmurs gallops or rubs. ABDOMEN: Soft and nontender with normal bowel sounds. Left groin is tender to palpation there is good pulses. SKIN: Skin is clear with no lesions or rashes and otherwise unremarkable. NEUROLOGIC: Patient is alert and oriented x3. Cranial nerves II through XII are grossly intact. Motor and sensory are also intact. Normal speech, volume and content. Symmetrical smile. . MUSCULOSKELETAL: Normal extremities with adequate strength and full range of motion. No lower extremity swelling or edema. No calf tenderness. LYMPHATICS: No significant lymphadenopathy is noted PSYCHIATRIC: Normal psychiatric evaluation. Limitations: no limitations Course Vital Signs 08/29/23 14:10 Temperature 97.5 F L Pulse Rate 57 L Respiratory 18 Rate Blood Pressure 124/68 O2 Sat by Pulse 99 Oximetry Medical Decision Making - Medical Decision Making Was pt. sent in by a medical professional or institution (, PA, [employer], urgent care, hospital, or usp...) When possible be specific @ -Patient was sent to the emergency department by her telegraph inspector Did you speak to anyone other than the patient for history (EMS, parent, family, police, friend...)? What history was obtained from this source @ -I spoke with Dr. Morris about this patient Did you review nursing and triage notes (agree or disagree)? Why? @ -I reviewed and agree with nursing and triage notes Were old charts reviewed (outside hosp., previous admission, EMS record, old EKG, old radiological studies, urgent care reports/EKG's, usp records)? Report findings @ -I reviewed prior charts and lab work on this patient Differential Diagnosis (chest pain, altered mental status, abdominal pain women, abdominal pain men, vaginal bleeding, weakness, fever, dyspnea, syncope, headache, dizziness, GI bleed, back pain, seizure, CVA, palpatations, mental health, musculoskeletal)? @ -Infection, pseudoaneurysm, hematoma, this is not an all-inclusive list EKG interpreted by me (3pts min.). @ -As above X-rays interpreted by me (1pt min.). @ -None done CT interpreted by me (1pt min.). @ -None done U/S interpreted by me (1pt. min.). @ -Patient has no pseudoaneurysm a hematoma is seen however What testing was considered but not performed or refused? (CT, X-rays, U/S, labs)? Why? @ -None What meds were considered but not given or refused? Why? @ -None Did you discuss the management of the patient with other professionals (professionals i.e. , PA, [employer], lab, RT, psych nurse, social psychologist, sports centre manager, teacher, field crop technical officer, bottle caser)? Give summary @ -No Was smoking cessation discussed for >3mins.? @ -No Was critical care preformed (if so, how long)? @ -No Were there social determinants of health that impacted care today? How? (Homelessness, low income, unemployed, alcoholism, drug addiction, transportation, low edu. Level, literacy, decrease access to med. care, group home, rehab)? @ -No Was there de-escalation of care discussed even if they declined (Discuss DNR or withdrawal of care, Hospice)? DNR status @ -No What co-morbidities impacted this encounter? (DM, HTN, Smoking, COPD, CAD, Cancer, CVA, ARF, Chemo, Hep., AIDS, mental health diagnosis, sleep apnea, morbid obesity)? @ -None Was patient admitted / discharged? Hospital course, mention meds given and route, prescriptions, significant lab abnormalities, going to OR and other pertinent info. @ -Patient did not want any pain medications. Patient denied any other symptoms aside from the left groin discomfort. I spoke with Dr. Morris he was in agreement with the patient following up as an outpatient Undiagnosed new problem with uncertain prognosis? @ -No Drug Therapy requiring intensive monitoring for toxicity (Heparin, Nitro, Insulin, Cardizem)? @ -No Were any procedures done? @ -No Diagnosis/symptom? @ -Groin hematoma Acute, or Chronic, or Acute on Chronic? @ -Acute Uncomplicated (without systemic symptoms) or Complicated (systemic symptoms)? @ -Uncomplicated Side effects of treatment? @ -No Exacerbation, Progression, or Severe Exacerbation? @ -No Poses a threat to life or bodily function? How? (Chest pain, USA, AL, pneumonia, PE, COPD, DKA, ARF, appy, cholecystitis, CVA, Diverticulitis, Homicidal, Suicidal, threat to staff... and all critical care pts) @ -No Disposition Clinical Impression: Hematoma of groin Disposition: HOME SELF-CARE Condition: Good Instructions (If sedation given, give patient instructions): Hematoma (ED) Is patient prescribed a controlled substance at d/c from ED?: No Referrals: Olinda Eric DO [Primary Care Provider] - 1-2 days Time of Disposition: 15:36
--- NOTE | 2023-08-29 15:22 | US ---
EXAMINATION TYPE: US lower ext pseudo artery LT DATE OF EXAM: 08/29/2023 COMPARISON: NONE CLINICAL INDICATION: Female, 67 years old with history of Pseudoaneurysm; left groin approach heart c ath last EXAM PERFORMED: Grayscale and color Doppler duplex imaging performed of the groin, post cardiac smitha ter to assess for pseudoaneurysm. SIDE PERFORMED: left Color and Waveform Doppler performed to assess for the presence of pseudoaneurysm; Is there ultrasound evidence of a pseudoaneurysm: no Is there evidence of AV shunting: no Is there a fluid collection present: directly beneath the puncture site the artery shows a hypoechoic area along the vessel wall. This appears to be outside in the intimal layer. ?soft plaque vs. thromb us, vs fluid collection adjacent to vessel? Hematoma should be considered. No active flow identified exam limited by edema and calcified vessels IMPRESSION: 1. No pseudoaneurysm identified. 2. A hematoma deep to the vessels without color flow present.
[2023-08-29 16:11] VITALS: BP 140/64; PULSE 59; TEMP 98.1
== END 2023-08-29 15:45 | disposition home or self-care (01) ==
LOC: EC 14:06
DX: S30.1XXA Contusion of abdominal wall, initial encounter (principal); I25.10 Atherosclerotic heart disease of native coronary artery without angina pectoris; J44.9 Chronic obstructive pulmonary disease, unspecified; K21.9 Gastro-esophageal reflux disease without esophagitis; I25.2 Old myocardial infarction; F17.200 Nicotine dependence, unspecified, uncomplicated; Z79.899 Other long term (current) drug therapy; X58.XXXA Exposure to other specified factors, initial encounter
CPT/HCPCS: 93975; 99284

== ENCOUNTER → 2024-02-22 | Outpatient (CLI) | payer MEDICARE ==
--- NOTE | 2024-03-12 11:03 | MM ---
Reason for Exam: Screening (asymptomatic). Last mammogram was performed 1 year(s) and 11 month(s) ago. Patient History: Menarche at age 11. First Full-Term at age 15. Left ovary removed at age 22. Right ovary removed at age 22. Hysterectomy at age 22. Postmenopausal. Currently using Estrogen, beginning at age 22 for 33 years, 3 months. Currently using Unspecified Hormone, starting at age 65. 10/2005, Excisional Biopsy on the Right side. Maternal cousin had breast cancer, age 51. Maternal cousin had breast cancer under age 50. Maternal aunt had breast cancer, age 70. Maternal cousin had breast cancer, age 45. Risk Values: Jody 5 year model risk: 1.6%. NCI Lifetime model risk: 5.2%. Prior Study Comparison: 04/24/2014 Bilateral Diagnostic Mammogram, [facility]. 10/09/2015 Bilateral Screening Mammogram, [facility]. 10/20/2015 Right Diagnostic Mammogram, [facility]. 10/19/2016 Bilateral Diagnostic Mammogram, [facility]. 03/09/2018 Bilateral Screening Mammogram, [facility]. 03/11/2020 Bilateral Screening Mammogram, [facility]. 03/12/2022 Bilateral MG screening mammo w CAD, [facility]. Tissue Density: The breasts are heterogeneously dense, which may obscure small masses. Findings: Analyzed By CAD. There is no suspicious group of microcalcifications or new suspicious mass in either breast. Overall Assessment: Benign, BI-RAD 2 Management: Screening Mammogram of both breasts in 1 year. . Patient should continue monthly self-breast exams. A clinical breast exam by your physician is recommended on an annual basis. This exam should not preclude additional follow-up of suspicious palpable abnormalities. Note on Jody scores and lifetime risk: 1. A Jody score greater than 3% is considered moderate risk. If this is the case, consider specialist referral to assess eligibility for a risk reducing agent. 2. If overall lifetime risk for the development of breast cancer is 20% or higher, the patient may qualify for future screening with alternating mammogram and breast MRI. Electronically signed and approved by: Matt Lee M.D. Radiologis
== END | disposition home or self-care (01) ==
LOC: RADMAMWWP 18:48
PROVIDERS: ATTEND Family Medicine
DX: Z12.31 Encounter for screening mammogram for malignant neoplasm of breast (principal); Z90.721 Acquired absence of ovaries, unilateral; Z78.0 Asymptomatic menopausal state; Z80.3 Family history of malignant neoplasm of breast; R92.333 Mammographic heterogeneous density, bilateral breasts
CPT/HCPCS: 77063; 77067

== ENCOUNTER → 2024-06-15 | Outpatient (CLI) | payer MEDICARE ==
--- NOTE | 2024-06-15 20:06 | CT ---
EXAMINATION TYPE: CT abdomen pelvis wo con DATE OF EXAM: 06/15/2024 9:17 AM COMPARISON: 09/04/2017 CLINICAL INDICATION: Female, 68 years old with history of R10.84; R33.8; Z87.442; bladder pain hx of recent passing of kidney stone TECHNIQUE: Axial CT abdomen pelvis wo con;Sagittal and coronal reformats were created on a separate workstation. Contrast used: mL of , (none if empty) Oral contrast used: without Oral Contrast (none if empty) CT DLP: 236.40 mGycm, Automated exposure control for dose reduction was used. FINDINGS: LOWER CHEST: Unremarkable ABDOMEN LIVER: Unremarkable GALLBLADDER AND BILE DUCTS: The gallbladder is not visualized may be surgically absent. PANCREAS: Unremarkable. SPLEEN: Unremarkable. ADRENAL GLANDS: Unremarkable. Gastric diverticulum extends near the left adrenal gland. KIDNEYS AND URETERS: No evidence of hydronephrosis or renal calculus. The ureters are unremarkable. PELVIS BLADDER: No evidence for wall thickening or mass given limitations of exam. REPRODUCTIVE: Unremarkable. ABDOMEN & PELVIS STOMACH AND BOWEL: No evidence of bowel obstruction. Scattered colonic diverticula. PERITONEUM/RETROPERITONEUM: No evidence of pneumoperitoneum or free fluid. VASCULATURE: Fusiform dilation of the infrarenal abdominal aorta up to 2.1 cm and left common iliac a rtery up to 1.6 cm. MUSCULOSKELETAL: No acute osseous abnormalities. Mild disc degeneration changes are present throughou t the thoracolumbar spine. LYMPH NODES: No gross evidence for lymphadenopathy. SOFT TISSUE/ABDOMINAL WALL: Surgical clips along the anterior abdomen. IMPRESSION: 1. No evidence for obstructive uropathy or renal calculus. 2. Colonic diverticulosis. 3. Moderate atherosclerosis. 4. Gastric diverticulum near the left adrenal gland. 5. Fusiform dilation of the infrarenal abdominal aorta up to 2.1 cm and left common iliac artery up to 1.6 cm. [facility], , 06/15/2024 8:03 PM
--- NOTE | 2024-06-16 00:02 | BD ---
EXAMINATION TYPE: Axial Bone Density DATE OF EXAM: 06/15/2024 CLINICAL HISTORY: 68 years old Female. ICD-10 CODE: Z78.0 Post menopausal; R10.84; R33.8; Z87.442 , Additional History: Height: 63 Weight: 116.4 FRAX RISK QUESTIONS: Alcohol (3 or more units per day): no Family History (Parent hip fracture): no Glucocorticoids (More than 3mos): no (Ex: prednisone, prednisolone, methylprednisolone, dexamethasone, and hydrocortisone). History of Fracture in Adulthood: no Secondary Osteoporosis: 1. Type 1 Diabetes: no 2. Hyperthyroidism: no 3. Menopause before 45: yes 4. Malnutrition: yes 5. Chronic liver disease: no Rheumatoid Arthritis: no Current Tobacco Use: yes RISK FACTORS HISTORY OF: Hip Fracture (Right/Left): no Spine Fracture: no History of Wrist Fracture: no Surgery to Spine/Hip(right/left)/Wrist (right/left): no MEDICATIONS: Thyroid Medications: no Osteoporosis Medications: no EXAM MEASUREMENTS: Bone mineral densitometry was performed using the [employer] System. Bone mineral density as measured about the Lumbar spine is: ----- L1-L4(G/cm2): 1.185 T Score Values are as follows: ----- L1: -0.4 ----- L2: -0.4 ----- L3: 0.1 ----- L4: 0.5 ----- L1-L4: 0.0 Z Score Values are as follows: ----- L1: 1.7 ----- L2: 1.6 ----- L3: 2.1 ----- L4: 2.6 ----- L1-L4: 2.1 Bone mineral density has: increased 1.2 % since study of: 03/12/2022 Bone mineral density about the R hip (g/cm2): 0.962 Bone mineral density about the L hip (g/cm2): 0.979 T Score values are as follows: -----R Neck: -0.7 -----L Neck: -0.6 -----R Total: -0.4 -----L Total: -0.2 Z Score values are as follows: -----R Neck: 1.2 -----L Neck: 1.3 -----R Total: 1.3 -----L Total: 1.4 Bone mineral density has: increased 1.0 % since study of: 03/12/2022 FRAX%s: The graph provided illustrates a 7.0% chance for a major osteoporotic fx and a 0.9% chance fo r the hips probability for fx in 10 years time. IMPRESSION: Normal (Values between +1 and -1 indicate normal bone mass). Consider repeating this study in 5 year s or sooner if there is some new clinical indication. NOTE: T-SCORE=SD OF THE YOUNG ADULT MEAN. [facility], , 06/16/2024 12:00 AM
== END | disposition home or self-care (01) ==
LOC: RADBDWWP 07:49
PROVIDERS: ATTEND Family Medicine
DX: R10.84 Generalized abdominal pain (principal); R33.8 Other retention of urine; E46 Unspecified protein-calorie malnutrition; K31.4 Gastric diverticulum; K57.30 Diverticulosis of large intestine without perforation or abscess without bleeding; Z87.442 Personal history of urinary calculi; Z78.0 Asymptomatic menopausal state
CPT/HCPCS: 74176; 77080